=== PATIENT | female | born 2000 | race Caucasian/White ===

== ENCOUNTER 2022-04-04 12:05 | Emergency (ER) | payer BC, MEDICAID, SELFPAY ==
--- NOTE | 2022-04-04 12:11 | ED.URI ---
HPI - URI/Sore Throat General Chief Complaint: Upper Respiratory Infection Stated Complaint: sorethroat Time Seen by Provider: 04/04/22 12:33 Source: patient and RN notes reviewed Mode of arrival: ambulatory Limitations: no limitations History of Present Illness HPI Narrative: 21-year-old female presents concern for sore throat. Reports symptoms started yesterday. She also reports a stomachache. She reports history of seasonal allergies that she has some rhinorrhea and nasal congestion. She reports she has been taking Tylenol. 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 EYES: Denies visual changes, redness, or discharge. ENT: Reports rhinorrhea, congestion, and sore throat. Denies sinus pain, otalgia CARDIOVASCULAR: Denies chest pain, palpitations, or edema. RESPIRATORY: Denies cough. Denies dyspnea. GASTROINTESTINAL: Denies abdominal pain, vomiting, diarrhea. Reports nausea SKIN: Denies rash or itching. MUSCULOSKELETAL: Denies myalgia. NEUROLOGIC: Denies headache. All systems reviewed & are unremarkable except as noted in HPI and below PMFSH Comments At time of signature, agree with nursing past medical, surgical, social and family history. There is no relevant family history pertinent to the presenting complaint Exam Narrative: GENERAL: Well-appearing, well-nourished, and in no acute distress. HEAD: Normocephalic EYES: PERRLA, conjunctivae clear ENT: Nares clear, turbinates edematous and erythematous, clear discharge. Mucous membranes moist. TM pearly solis with dull light reflex bilaterally; no tragal tenderness. Oropharynx not erythematous without lesions. Tonsils not enlarged and without exudate, no drooling, no hoarseness, no trismus, uvula midline. NECK: Supple. No lymphadenopathy CHEST: Clear to auscultation, breath sounds equal. No wheezing, rhonchi, rales, or stridor. No respiratory distress, speaks in full sentences. HEART: Regular rate and rhythm. No murmur heard. SKIN: Warm, dry, no rash. NEURO: Alert and oriented x3. PSYCH: Normal mood and affect Course Course Emergency Course: Patient is aware of diagnosis, understands and agrees to treatment plan. Anticipatory guidance given. Patient agrees to follow-up as directed and is aware of reasons to seek care at the emergency department. Portions of this record may have been created with voice recognition software Level of Care: Express Care Visit Vital Signs Vital signs: Reviewed. MDM - URI/Sore Throat MDM Narrative Medical decision making narrative: Differential diagnosis considered: Sierra virus, strep pharyngitis, allergic rhinitis, upper respiratory tract infection, sinusitis, rhinosinusitis, nasopharyngitis. viral pharyngitis, otitis media, otitis externa, pneumonia, bronchitis, viral cough syndrome, viral syndrome, and influenza. Exam findings show no acute concerns or changes; patient is non-toxic appearing and is in no distress. Patient is appropriate for outpatient treatment and follow-up. Lab Data Attestation: I reviewed the patient's lab results. Critical Care Time Critical Care Time Critical Care Time: No Discharge Plan Discharge Clinical Impression: Pharyngitis Patient Disposition: Home, Self-Care Condition: Stable Instructions: Pharyngitis (ED) Additional Instructions: Your rapid strep swab was negative today at [facility]. A throat culture will be sent to the laboratory for further testing. If the test is positive, you will receive a phone call within 48 hours and an appropriate antibiotic will be initiated at that time. Your symptoms are likely due to a viral illness, which is not treated with antibiotics. Viral symptoms can be present for up to a few weeks. -Al
[2022-04-04 12:27] VITALS: BP 110/69; PULSE 86; RESP 18; TEMP 36.7; O2SAT 100
== END 2022-04-04 12:42 | disposition home or self-care (01) ==
PROVIDERS: Emergency Provider Nurse Practitioner
DX: J02.9 Acute pharyngitis, unspecified (principal); Z86.16 Personal history of COVID-19
CPT/HCPCS: 87081; 87880; 99213; G0463

== ENCOUNTER 2023-08-01 08:29 | Emergency (ER) | payer OTHER, SELFPAY ==
--- NOTE | 2023-08-01 08:36 | ED.EAR ---
HPI - Ear Problem General Chief complaint: Ear Stated complaint: Rt Ear Irritation Time Seen by Provider: 08/01/23 08:36 Source: patient, RN notes reviewed and old records reviewed Mode of arrival: ambulatory Limitations: no limitations History of Present Illness HPI Narrative: 22 year old female presents to [facility] care with complaints of right ear pain since Saturday (3 days)with some sinus congestion and drainage. Patient reports some headache discomfort, denies any sore throat or any known fevers. Patient reports that she has some history of seasonal allergies and also sinus problems and does take Zyrtec as needed.Patient reports that she has been taking Ibuprofen for her discomfort. MD Complaint: ear pain Location: right ear Duration: constant Severity: moderate Discharge from ear: Reports no Treatment prior to arrival: oral analgesic (Ibuprofen) Related Data Allergies Allergy/AdvReac Type Severity Reaction Status Date / Time No Known Allergies Allergy Verified 08/01/23 08:44 Review of Systems Review of Systems: CONSTITUTIONAL: Denies malaise, chills, sweats, or fever. EYES: Denies visual changes, redness, or discharge. ENT: Reports rhinorrhea, congestion, sinus pain,right otalgia and no sore throat. CARDIOVASCULAR: Denies chest pain, palpitations, or edema. RESPIRATORY: Reports no cough.? Denies dyspnea. GASTROINTESTINAL: Denies abdominal pain, nausea, vomiting, diarrhea SKIN: Denies rash or itching. MUSCULOSKELETAL: Denies myalgia. NEUROLOGIC: Reports headache. All systems reviewed & are unremarkable except as noted in HPI and below PMFSH Past Medical History Medical History (Updated 08/01/23 @ 11:28 by Deya Hercules NP) History of sinus problem Polydactyly, toes surgery X3 Seasonal allergies Surgical History Surgical History (Updated 08/01/23 @ 11:27 by Deya Hercules NP) History of mandibular surgery x2 Social History Social History (Updated 08/01/23 @ 08:54 by Deya Hercules NP) Smoking status: Never smoker Alcohol intake: current Alcohol use details: rare social Substance use type: does not use Living arrangements: with family Gender identity (if verbalized by the patient): Female Comments At time of signature, agree with nursing past medical, surgical, social and family history. There is no relevant family history pertinent to the presenting complaint Exam Narrative: GENERAL: Well-appearing, well-nourished, and in no acute distress. HEAD: Normocephalic EYES: PERRLA, conjunctivae clear ENT: Nares clear, turbinates edematous and erythematous, clear discharge. Mucous membranes moist Right TM red,Left TM pearly solis with dull light reflex; no tragal tenderness. Oropharynx erythematous without lesions. Tonsils not enlarged and without exudate, no drooling, no hoarseness, no trismus, uvula midline.post nasal drainage. NECK: Supple. No lymphadenopathy CHEST: Clear to auscultation, breath sounds equal. No wheezing, rhonchi, rales, or stridor. No respiratory distress, speaks in full sentences. no cough noted,SAO2 100% on room air HEART: Regular rate and rhythm. No murmur heard. SKIN: Warm, dry, no rash. NEURO: Alert and oriented x3. PSYCH: Normal mood and affect Course Course Emergency Course: Patient is aware of diagnosis, understands and agrees to treatment plan.? Anticipatory guidance given.? Patient agrees to follow-up as directed and is aware of reasons to seek care at the emergency department. Portions of this record may have been created with voice recognition software Level of Care: Express Care Visit Vital Signs Vital signs: Vital Signs Oxygen Delivery Room Air 08/01/23 08:38 Temperature 36.6 C 08/01/23 08:40 Pulse Rate 79 08/01/23 08:40 Respiratory Rate 18 08/01/23 08:40 Blood Pressure 107/70 08/01/23 08:40 Pulse Oximetry 100 08/01/23 08:40 Oxygen Delivery Room Air 08/01/23 08:40
[2023-08-01 08:40] VITALS: BP 107/70; PULSE 79; RESP 18; TEMP 36.6; O2SAT 100
== END 2023-08-01 09:00 | disposition home or self-care (01) ==
PROVIDERS: Emergency Provider Registered Nurse; PCP Family Medicine
DX: H65.01 Acute serous otitis media, right ear (principal)
CPT/HCPCS: 99213; G0463

== ENCOUNTER 2024-08-04 08:20 | Emergency (ER) | payer OTHER, SELFPAY ==
[2024-08-04 09:21] VITALS: BP 132/84; PULSE 102; RESP 16; TEMP 36.6; O2SAT 100
--- NOTE | 2024-08-04 09:54 | ED.EYEPROB ---
HPI - Eye Problem General Chief complaint: Eye Problems Stated complaint: RT Eye redness Time Seen by Provider: 08/04/24 09:54 Source: patient, RN notes reviewed and old records reviewed Mode of arrival: ambulatory Limitations: no limitations History of Present Illness HPI Narrative: 23-year-old female presents to the [facility] with complaints of right redness. Patient reports that on Saturday she woke up in her eye was crusted shut. Same with this morning. No treatment prior to arrival. Reports that is being irritated itchy. Denies any pain. Related Data Home Medications Medication Instructions Recorded Confirmed nortriptyline 10 mg capsule 10 mg DIRECTED 08/04/24 08/04/24 Allergies Allergy/AdvReac Type Severity Reaction Status Date / Time No Known Allergies Allergy Verified 08/01/23 08:44 Review of Systems Review of Systems: All systems reviewed & are unremarkable except as noted in HPI and below Constitutional: Constitutional: Reports no additional constitutional complaints Eyes: Eyes: Reports as per HPI ENT: Reports system reviewed and no additional complaints, except as documented Cardiovascular: Cardiovascular: Reports no additional cardiovascular complaints, Denies chest pain and Denies dyspnea Respiratory: Respiratory: Reports no additional respiratory complaints, Denies chest congestion, Denies cough and Denies dyspnea Gastrointestinal: Gastrointestinal: Reports no additional gastrointestinal complaints, Denies abdominal pain, Denies nausea and Denies vomiting Musculoskeletal: Musculoskeletal: Reports no additional musculoskeletal complaints Integumentary/Breasts: Skin/Breast: Reports system reviewed and no additional complaints, except as docu PMFSH Past Medical History Medical History History of sinus problem Polydactyly, toes surgery X3 Seasonal allergies Surgical History Surgical History History of mandibular surgery x2 Social History Social History Smoking status: Never smoker Alcohol intake: current Alcohol use details: rare social Substance use type: does not use Living arrangements: with family Gender identity (if verbalized by the patient): Female Comments At the time of my signature, I reviewed and agree with the nursing past medical, surgical, social, and family history. There is no relevant family history pertinent to the patient complaint. Exam Const: General: cooperative, healthy appearing, comfortable, no acute distress, well developed, alert and well nourished Nutritional Appearance: well nourished Orientation/consciousness: patient oriented x3 Limitations: no limitations HENMT: Head: normal to inspection Ears: hearing grossly normal bilaterally and external ears normal Face/Nose/Sinus: Normal external nose present, normal facial exam and face symmetric Face and sinus: normal facial exam and face symmetric Eyes: General: appearance normal, both eyes and all related structures Alignment and Position: alignment normal Periorbital: periorbital findings normal Conjunctivae: conjunctival abnormality right conjunctival injection localized (Right lower lid) Neck: Neck: normal visual inspection, full ROM, no lymphadenopathy and no meningeal signs Chest: Chest palpation & inspection: normal inspection of the chest Resp: Effort & Inspection: normal respiratory effort and able to speak in complete sentences Cardio: Rate: regular rate Skin: General skin exam: normal color and no rashes or lesions noted Lesions: no lesions Rashes: no rashes Wounds: no wounds Neuro: General: patient oriented x3, gait normal, tone normal, moves all extremities and no meningeal signs Cognition (Neuro): normal cognition Speech: normal speech Gait exam (Neuro): Normal gait present Extrem: General: normal to inspection, full ROM, capillary refill normal and normal gait Psych: Appearance: grossly normal and well kempt Mental Status: mental status grossly normal Speech and movement: Normal speech and movement present and Clear speech present Affect: normal affect Attitude: cooperative Course Course Level of Care: Express Care Visit Vital Signs Vital signs: Vital Signs Temperature 97.9 F 08/04/24 09:21 Pulse Rate 102 H 08/04/24 09:21 Respiratory Rate 16 08/04/24 09:21 Blood Pressure 132/84 08/04/24 09:21 Pulse Oximetry 100 08/04/24 09:21 Oxygen Delivery Room Air 08/04/24 09:21 Temperature 97.9 F 08/04/24 09:21 Pulse Rate 102 H 08/04/24 09:21 Respiratory Rate 16 08/04/24 09:21 Blood Pressure 132/84 08/04/24 09:21 Pulse Oximetry 100 08/04/24 09:21 Oxygen Delivery Room Air 08/04/24 09:21 Reviewed MDM - Eye Problem MDM Narrative Medical decision making narrative: Patient sitting exam. Vitals stable. Patient in no acute distress Patient presents with eye redness itching, irritation and stating that it was matted shut Saturday and today. Exam consistent with conjunctivitis, patient does wear contact but denies any injury. Denies any pain Patient appropriate for outpatient treatment follow-up Discharge instructions reviewed with patient, as well as provided in writing per nursing staff. The instructions also include specific and strict return/GO TO THE ER as well as f/u information. All questions have been answered, and the patient deny any further questions with discharge and discharge plan. Some parts of this dictation were generated by voice recognition software and may contain typographical and/or grammatical inaccuracies. Differential Diagnosis Differential diagnosis: Likely corneal abrasion and conjunctivitis Critical Care Time Critical Care Time Critical Care Time: No Discharge Plan Discharge Clinical Impression: Acute conjunctivitis of right eye Qualifiers: Acute conjunctivitis type: unspecified Qualified Code(s): H10.31 - Unspecified acute conjunctivitis, right eye Patient Disposition: Home, Self-Care Condition: Stable Instructions: Conjunctivitis (ED) Additional Instructions: Apply a cool, damp compress to your affected eye. Be sure to use a clean cloth each time to avoid spreading the infection. Gently clean your eyes with wet cotton balls or pads to remove crusty buildup or irritating discharge. Stop wearing contact lenses until the condition clears up. Maintain good hygiene and only touch your eyes with freshly washed hands. You should follow-up with an eye doctor within the next 72 hours [facility]: [place]- [phone] [facility] [phone] [facility] [phone] [place]: [facility] [phone] or [phone] [facility] [phone] [place] [phone] [facility] [phone] [facility]- [phone] Patient Language: Amharic Prescriptions: New ciprofloxacin HCl 0.3 % drops See Rx Instructions EACH EYE .COMPLEX Qty: 2.5 0RF Rx Instructions: put 1-2 drps in affected eye(s) every 2hr up to 8 times/day x2days; then 4 times/day x5days No Action nortriptyline 10 mg capsule 10 mg DIRECTED cetirizine-pseudoephedrine [Zyrtec-D] 5-120 mg tablet extended release 12 hr 1 tablet PO Q12H PRN (Reason: nasal congestion) Qty: 12 0RF Follow-up/Referrals: Clem,Marivel Garcia MD [Primary Care Provider] - 2 Weeks ([facility] ) Stand Alone Forms: Work/School Release IP Time of Disposition: 10:05
== END 2024-08-04 10:11 | disposition home or self-care (01) ==
PROVIDERS: Emergency Provider Nurse Practitioner; PCP Internal Medicine
DX: H10.31 Unspecified acute conjunctivitis, right eye (principal)
CPT/HCPCS: 99213; G0463

== ENCOUNTER 2024-10-21 15:32 | Emergency (ER) | payer OTHER, SELFPAY ==
--- NOTE | 2024-10-21 15:37 | ED.HA ---
HPI - Headache General Chief Complaint: Upper Respiratory Infection Stated Complaint: Migraine,Nauseous Time Seen by Provider: 10/21/24 16:07 Source: patient, RN notes reviewed and old records reviewed Mode of arrival: ambulatory Limitations: no limitations History of Present Illness HPI Narrative: Patient with history of migraines, taking nortriptyline, presents with complaints of headache. She reports that she has had intermittent headache for 3 days. She has been taking ibuprofen with no relief. She is attempting to stay well hydrated. She reports that she is nauseated, but has not vomited. She denies any injury or trauma. She did recently begin taking letrozole. Last Menstrual period 10/17/2024 Related Data Home Medications ?Medication ?Instructions ?Recorded ?Confirmed ?Last Taken ?Type nortriptyline 10 mg capsule 10 mg DIRECTED 08/04/24 08/04/24 Unknown History Allergies Allergy/AdvReac Type Severity Reaction Status Date / Time No Known Allergies Allergy Verified 10/21/24 15:37 Review of Systems Review of Systems: All systems reviewed & are unremarkable except as noted in HPI and below Constitutional: Constitutional: Reports no additional constitutional complaints and Reports headache(s) ENT: Reports system reviewed and no additional complaints, except as documented Cardiovascular: Cardiovascular: Reports no additional cardiovascular complaints Respiratory: Respiratory: Reports no additional respiratory complaints Gastrointestinal: Gastrointestinal: Reports no additional gastrointestinal complaints and Reports nausea PMFSH Past Medical History Medical History Polydactyly, toes surgery X3 History of sinus problem Seasonal allergies Surgical History Surgical History History of mandibular surgery x2 Social History Social History Smoking status: Never smoker Alcohol intake: current Alcohol use details: rare social Substance use type: does not use Living arrangements: with family Gender identity (if verbalized by the patient): Female Comments At the time of my signature, I reviewed and agree with the nursing past medical, surgical, social, and family history. There is no relevant family history pertinent to the patient complaint. Exam Const: General: cooperative, no acute distress, alert and awake Orientation/consciousness: oriented to person, oriented to place and oriented to time HENMT: Head: normal to inspection Ears: TM's normal bilaterally Mouth: Yes moist mucous membranes Eyes: General: appearance normal, both eyes and all related structures Alignment and Position: alignment normal Periorbital: periorbital findings normal Conjunctivae: conjunctivae normal Sclera: sclerae normal Pupils: Equal, round and reactive pupils present EOM: EOMs intact bilaterally Resp: Effort & Inspection: normal respiratory effort and able to speak in complete sentences Auscultation: clear to auscultation bilaterally, no crackles, no rales, no rhonchi and no wheezes Cardio: Palpation: normal PMI Rate: regular rate Rhythm: regular rhythm Heart sounds: S1 normal heart sound present and S2 normal heart sound present Neuro: General: oriented to person, oriented to place and oriented to time Cranial nerves: Yes CN's II-XII intact bilaterally Psych: Appearance: grossly normal Thought process: Normal thought process present Insight: Good insight present (Psych) Judgement: Good judgement present (Psych) Course Course Level of Care: Express Care Visit Vital Signs Vital signs: Reviewed MDM - Headache MDM Narrative Medical decision making narrative: patient history of migraines, lots factors that could be causing her headache today. COVID and flu ruled out, test negative today. Patient is taking letrozole, recently began menstrual period , and has additional stressors such as school. She is feeling better after Toradol and Zofran. Nontoxic-appearing stable for discharge home Discharge instructions reviewed with patient, as well as provided in writing per nursing staff. The instructions also include specific and strict return/GO TO THE ER as well as f/u information. All questions have been answered, and the patient deny any further questions with discharge and discharge plan. Some parts of this dictation were generated by voice recognition software and may contain typographical and/or grammatical inaccuracies. Differential Diagnosis Differential diagnosis: Likely migraine, tension headache and headache Medical Records Attestation: I reviewed the patient's medical records. Lab Data Attestation: I reviewed the patient's lab results. Discharge Plan Discharge Clinical Impression: Headache Qualifiers: Headache type: unspecified Headache chronicity pattern: unspecified pattern Intractability: not intractable Qualified Code(s): R51.9 - Headache, unspecified Patient Disposition: Home, Self-Care Condition: Stable Instructions: Antibiotic Form, Acute Headache (ED) Patient Language: Palestinian Prescriptions: New ondansetron 4 mg tablet,disintegrating 4 mg PO Q6H PRN (Reason: nausea and vomiting) Qty: 20 0RF ketorolac 10 mg tablet 10 mg PO Q8H PRN (Reason: pain) Qty: 10 0RF Rx Instructions: maximum total duration of 5 days from all oral, intranasal, or parenteral formulations No Action nortriptyline 10 mg capsule 10 mg DIRECTED cetirizine-pseudoephedrine [Zyrtec-D] 5-120 mg tablet extended release 12 hr 1 tablet PO Q12H PRN (Reason: nasal congestion) Qty: 12 0RF Follow-up/Referrals: Clem,Marivel Garcia MD [Primary Care Provider] - 1 Week Time of Disposition: 16:35
[2024-10-21 15:40] VITALS: BP 126/83; PULSE 90; RESP 16; TEMP 36.6; O2SAT 100
[2024-10-21 16:03] LABS: EDCOVIDSCREEN Negative (Negative); EDINFLUASCREEN Negative (Negative); EDINFLUBSCREEN Negative (Negative)
[2024-10-21] MEDS: KETOROLAC (*BKC) 60 MG/2 ML VIAL IM (16:13)
[2024-10-21] MEDS: ONDANSETRON HCL ODT 4 MG TABLET PO (16:13)
--- OUTSIDE RECORDS SUMMARY | 2024-10-21 16:15 | XMS_ITS | Referral Summary ---
Author Organization [facility] Address [address] [place] [address] Care Team Providers Care Stuffed Casing Tier Name Role Phone Meche Veras DO Primary Care Provider [phone] Source Comments [facility],non-owned Affiliates and Associated Physician Practices is amultiple site organization consisting of ambulatory clinics and hospital sitesin [place], [place], [place] and [place]. This disclosure is being madepursuant to the Care Everywhere program and may not contain all information available regarding this patient. Last updated 18.[facility] Allergies No known active allergies Medications Be aware that medications may not be up to date on this document. Always verify current medications with the patient. 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; molluscum on R elbow Constellation of findings suspicious for genetic link Scoliosis 01/22/2012 Overview (01/28/2012): 01/22/12 order xrays 01/23/12 scoliosis - 10 degrees, will recheck in one year Hallux varus, acquired 08/07/2010 Overview (06/23/2015): Well child visit 02/14/2010 Overview (06/05/2019): 10 y/o 01/17/11 11 yo 01/22/12 13 yo 03/18/14 14 yo 12/23/14 15 yo 12/27/15 16 yo 01/01/17 17 yo 01/14/18 18 yr 06/05/19 Heart murmur 02/14/2010 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 (AF LURIA, FLUZONE TRIVALENT; 6MO+) (IIV3) 08/03/2013 DTaP VACCINE IM (6wk-6yrs) 12/24/2006,,06/29/2002,04/28,02/27/2002 HEP A PEDS 2 DOSE 12/23/2006,2005 HEP B VACCINE, PED/ADOL 04/05/2008,04/28/2002, HIB BOOSTER 04/05/2008,04/28/2002,02/27/2002 Human Papilloma Virus Nineva lent Vaccine 01/14/2018 Human Papilloma Virus Jess valent Vaccine 12/27/2015 INFLUENZA VACCINE, QUADR. (F LUZONE; FLULAVAL; FLUARIX; AFLURIA QUADRIVALENT; 6MO+), 0.5 ML (IIV4) 07/13/2015 MENINGOCOCCAL CONJUGATE (MCV4P) 01/14/2018,03/18 MMR 12/23/2006,02/03/2003 PNEUMOCOCCAL CONJ, PEDS 07/20/2003,04/05,04/28/2002,02/27 POLIO IPV 2005, 3,04/28/2002,02/27 PPD 2005 TDAP (7yrs+) 03/18/2013 VARICELLA 01/23/2008,02/03/2003 Social History Tobacco Use Types Packs/Day Years Used Date Smoking Tobacco: Never Smokeless Tobacco: Never Alcohol Use Standard Drinks/Week Comments No 0 (1 standard drink = 0.6 oz pur e alcohol) Sex and Gender Information Value Date Recorded Sex Assigned at Not on file Gender Identity Not on file Sexual Orientation Not on file Last Filed Vital Signs Vital Sign Reading Time Taken Comments Blood Pressure 102/64 07/13/2020 9:54 AM CDT Pulse 96 08/02/2016 2:54 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 Author Use safety retraint in car Lifestyle On track( 020 9:55 AM CDT) No Reina Love Administered Medications Care Teams Stuffed Casing Tier Relationship Specialty Start Date End Date Meche Veras DO [address] [place] [address] PCP - General Pediatrics 07/20/20
--- OUTSIDE RECORDS SUMMARY | 2024-10-21 16:15 | XMS_ITS | Clinical Summary ---
Author Organization [facility] 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 This disclosure is being madepursuant to the Care Everywhere program and may not contain all information available regarding this patient. Last updated 18.[facility] 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 Temperature 36.6 ??C (97.9 ??F) 07/15/2020 8:22 AM CD T Respiratory Rate 18 04/07/2015 10:23 AM CDT Oxygen Saturation 100% 08/02/2016 2:54 PM SALES ADVISORY MANAGER Inhaled Oxygen Concentration - - Weight 43.3 kg (95 lb 6.4 oz) 07/13/2020 9:54 AM CDT Height 160 cm (5' 3 ) 07/13/2020 9:54 AM CDT Body Mass Index 16.9 07/13/2020 9:54 AM CDT Plan of Treatment Health Maintenance Due Date Last Done Comments PAP SMEAR 2001 HIV SCREENING 2016 CHLAMYDIA/GONORRHEA SCREENING 2017 MENINGOCOCCAL (Group B) VACCINE (1 of 2 - Standard) 2017 HEPATITIS C SCREENING 12/17/2019 DTAP/TDAP/TD VACCINES (7 - Td or Tdap) 03/18/2023 03/18/2013, 12/24/2006, 04/05/2003, Additional history exists COVID-19 VACCINE ( - 2023- season) 2024 10/10/2021 INFLUENZA VACCINE (#1) 2024 07/13/2015, 2012 DEPRESSION SCREENING 09/23/2024 ZOSTER VACCINE (1 of 2) 12/22/2051 PNEUMOCOCCAL VACCINE Completed 07/20/2003, 04/05/2003, 04/28/2002, Additional history exists HEPATITIS B VACCINE Completed 04/05/2008, 04/28/2002, 02/27/2002 HIB VACCINE Aged Out 04/05/2008, 02/2002, 02/27/2002 No longer eligible based on patient's age to complete this topic HPV VACCINE Completed 01/14/2018, 12/27/2015 MENINGOCOCCAL VACCINE Completed 01/14/2018, 013 Goals Goal Patient Goal Type Associated Problems Recent Progress Patient-Stated? Author Use safety retraint in car Lifestyle On track( 020 9:55 AM CDT) Reina Mallory Care Teams [employer] Assistant Football Coach Relationship Specialty Start Date End Date Meche Veras DO [address] [place] [address] PCP - General Pediatrics 07/20/20
--- OUTSIDE RECORDS SUMMARY | 2024-10-21 16:15 | XMS_ITS | Referral Summary ---
Author Organization [place] [id number] Address [address] [place] [address] Care Team Providers Care Accounting Systems Analyst Name Role Phone Marivel Nj MD Primary Care Provider Encounters Date Type Department Care Team Description 10/08/2024 2:00 PM DESKTOP MANAGER [facility] Medical Office Building [address] [place] [address] [id number] Patient desires 10/01/2024 3:30 PM DESKTOP MANAGER Telemedicine [facility] Obstetrical Gynecology [address] [place] [phone] Luciana Stauffer MD Patient desires (Primary Dx); Anovulation 09/30/2024 4:15 PM DESKTOP MANAGER Clinical Support [facility] Obstetrical Gynecology [address] [place] [address] [address] [place] [address] Patient desires (Primary Dx) 09/17/2024 Telephone [facility] Primary Care [address] [place] [address] [address] [place] [phone] Marivel Nj MD Med Refill (Nortriptyline 10MG caps) 09/10/2024 Orders Only [facility] Obstetrical Gynecology [address] [place] [address] [address] [place] [phone] Luciana Stauffer MD Patient desires (Primary Dx) 09/01/2024 8:00 AM DESKTOP MANAGER Lab [facility] Office Building 1 Lab [address] [place] [address] Well woman exam; Patient desires 08/18/2024 2:30 PM DESKTOP MANAGER Office Visit [facility] Obstetrical Gynecology [address] [facility] [address] [place] [phone] Luciana Stauffer MD Patient desires (Primary Dx) from Last 3 Months Allergies No known active allergies Medications cetirizine (ZyrTEC) 10 mg tablet Take 1 tablet (10 mg total) by mouth daily Active letrozole (FEMARA) 2.5 mg tablet Take 1 tablet (2.5 mg total) by mouth daily Take on cycle days 3-7 5 tablet 1 09/10/2024 Active nortriptyline (PAMELOR) 10 mg capsule 2 pills by mouth at bedtime. 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 Scoliosis 01/22/2012 Overview (03/30/2024): 01/22/12 order xrays 01/23/12 scoliosis - 10 degrees, will recheck in one year Hallux varus, acquired 08/07/2010 Overview (03/30/2024): Heart murmur 02/14/2010 Resolved Problems Problem Noted Date Diagnosed Date Resolved Date Polydactyly of toes 02/14/2010 03/30/20 24 Immunizations Name Administration Dates Next Due DTaP 12/24/2006, 3,06/29/2002,04/28,02/27/2002 DTaP, Unspecified 12/24/2006, 3,06/29/2002,04/28,02/27/2002 HPV, Quadrivalent 12/27/2015 HPV9 01/14/2018 Hep A, Ped Unspecified 12/23/2006,2005 Hep A, Pediatric 12/23/2006,2005 Hep B / HiB 04/05/2003,04/28/2002,02/27/2002 Hep B, Adolescent or Pediatric 04/05/2008,2001,02/27/2002 HiB 04/05/2008,04/28/2002,02/27/2002 Hib (PRP-D) 04/05/2008,04/28/2002,02/27/2002 IPV 2005, 3,04/28/2002,02/27 Influenza, Quadrivalent, Spl it, Preservative Free, Intramuscular 07/13/2015 Influenza, Trivalent, IM (MDV) 08/03/2013 Influenza, Unspecified 12/17/2023(Deferr ed: Patient Refused),07/13/2015,08/03/2013 MMR 12/23/2006,02/03/2003 Meningococcal MCV4P (Menactra) 01/14/2018,2012 PPD TEST 12/17/2023,2005 Pneumococcal Conjugate 7-Valent 07/20/20,04/05/2003,04/28/2002,02/27 Pneumococcal Conjugate, Unspecified 06/24,04/05/2003,04/28/2002,02/27 Tdap 12/19/2023,10/18/2022,03/18/2013 Varicella 01/23/2008,02/03/2003 Social History Tobacco Use Types Packs/Day Years Used Date Smoking Tobacco: Every Day Cigarettes Vaping Smokeless Tobacco: Never Tobacco Cessation:Ready to Q uit: Not Asked; Counseling Given: Not Answered AUDIT-C Answer Date Recorded Q1: How often do you have a drink containing alc ohol? Monthly or less 12/17/2023 Q2: How many drinks containi ng alcohol do you have on a typical day when you are drinking? 1 or 2 12/17/2023 Q3: How often do you have si x or more drinks on one occasion? Never 12/17/2023 PHQ-2 Answer Date Recorded PHQ-2 Total Score (If total score is 3 or more points, staff should administer the PHQ-9) 0 02/11/2024 Comments No Sex and Gender Information Value Date Recorded Sex Assigned at Not on file Legal Sex Female 7:14 PM DESKTOP MANAGER Gender Identity Not on file Sexual Orientation Not on file Last Filed Vital Signs Vital Sign Reading Time Taken Comments Blood Pressure 122/80 08/18/2024 2:31 PM DESKTOP MANAGER Pulse 98 02/11/2024 2:50 PM CDT Temperature 37.1 ??C (98.7 ??F) 02/11/2024 2:50 PM CD T Respiratory Rate 15 02/11/2024 2:50 PM CDT Oxygen Saturation 99% 02/11/2024 2:50 PM CDT Inhaled Oxygen Concentration - - Weight 49 kg (108 lb) 08/18/2024 2:31 PM DESKTOP MANAGER Height 157.5 cm (5' 2.01 ) 08/18/2024 2:31 PM CS T Body Mass Index 19.75 08/18/2024 2:31 PM DESKTOP MANAGER Plan of Treatment Not on file Procedures Procedure Name Priority Date/Time Associated Diagnosis Comments PROGESTERONE Routine 10/08/2024 2:05 PM DESKTOP MANAGER Patient desires US TRANSVAGINAL Schedule Routine, Read Routine (OP Routine) 09/30/2024 5:11 PM DESKTOP MANAGER Patient desires ANTIBODY SCREEN Routine 09/01/2024 8:13 AM DESKTOP MANAGER Well woman exam ABO/RH Routine 09/01/2024 8:13 AM DESKTOP MANAGER Well woman exam TYPE AND SCREEN Routine 09/01/2024 8:13 AM DESKTOP MANAGER Well woman exam TOTAL TESTOSTERONE Routine 09/01/2024 8: 13 AM DESKTOP MANAGER Patient desires DHEA-SULFATE Routine 09/01/2024 8:13 AM DESKTOP MANAGER Patient desires ANTIMULLERIAN HORMONE (AMH) Routine 09/01/2024 8:13 AM DESKTOP MANAGER Patient desires PROLACTIN Routine 09/01/2024 8:13 AM DESKTOP MANAGER Patient desires FOLLICLE STIMULATING HORMONE Routine 09/01/2024 8:13 AM DESKTOP MANAGER Patient desires ESTRADIOL Routine 09/01/2024 8:13 AM DESKTOP MANAGER Patient desires HEMOGLOBIN A1C Routine 09/01/2024 8:13 AM DESKTOP MANAGER Well woman exam PROGESTERONE Routine 09/01/2024 8:13 AM DESKTOP MANAGER Patient desires THYROID FUNCTION CASCADE Routine 09/01/2024 8:13 AM DESKTOP MANAGER Well woman exam RUBELLA IGG Routine 09/01/2024 8:13 AM DESKTOP MANAGER Patient desires VARICELLA ZOSTER ANTIBODY, IGG Routine 09/01/2024 8:13 AM DESKTOP MANAGER Patient desires N. GONORRHOEAE/C. TRACHOMATIS AMPLIFICATION Routine 03/30/2024 3:00 PM CDT Well woman exam PAP WITH REFLEX TO HIGH RISK HPV Routine 03/30/2024 3:00 PM CDT Well woman exam from Last 3 Months or Most Recently Relevant to Health Maintenance Results * (ABNORMAL) Progesterone (10/08/2024 2:05 PM DESKTOP MANAGER) Progesterone 23.2(H) 0.0 - 0.2 ng/mL Comment: Interpretive Data Males: ?<0.15 ng/mL Females: ??Follicular ?<0.20 ng/mL ??Ovulation ? <4.1 ng/mL ??Luteal ?4.1 - ??14.5 ng/mL ??1st Trimester ?? 11.0 - ??44.0 ng/mL ??2nd Trimester ?? 25.0 - ??83.0 ng/mL ??3rd Trimester ?? 59.0 - 214.0 ng/mL ??Postmenopausal ??<0.13 ng/mL Current interpretive data was last revised 2021. Blood 10/08/2024 2:05 PM DESKTOP MANAGER 10/08/2024 6:57 PM DESKTOP MANAGER Luciana Stauffer MD LAB BLOOD ORDERABLES Final R esult [facility] [address] [facility] [place] [address] * US Transvaginal (09/30/2024 5:11 PM DESKTOP MANAGER) Anatomical Region Laterality Modality Pelvis N/A Ultrasound Narrative 10/01/2024 2:41 PM DESKTOP MANAGER Last Menstrual Period: 08/2024 Indication: desires History of Pelvic Surgery: no Uterus size in cm: 7.47 x 4.15 x 3.30 Endometrium: 11.89 mm Right Ovary size in cm: 3.62 x 3.38 x 2.95 ?Cyst present: yes ?Size of cyst in cm: 2.72 x 2.46 x 1.84 Left Ovary size in cm: 2.87 x 2.27 x 2.10 ?Cyst present: no Pot Fisher impression: Endo = 11.89 mm. Right ovary presents with an anechoic area measuring 2.72 x 2.46 x 1.84 cm. Left ovary appears WNL. Physician Interpretation Normal sized uterus that is anteverted and anteflexed. Endometrium is slightly thickened and in some images appears heterogenous near the fundus, but no blood flow to this area of endometrium. Consider SIS to differentiate possible endometrial polyp. Normal appearing left ovary. Right ovary is slightly enlarged with a 2.7 x 2.5 cm simple cyst. Luciana Stauffer MD Luciana Stauffer MD IMG US PROCEDURES Edited Res ult - Final * Thyroid Function [place] (09/01/2024 8:13 AM DESKTOP MANAGER) TSH 2.30 0.30 - 4.20 mcIUnit/mL Comment:Testing performed by : [address] [address] Blood 09/01/2024 8:13 AM DESKTOP MANAGER 09/01/2024 10:01 AM DESKTOP MANAGER Luciana Stauffer MD LAB BLOOD ORDERABLES Edited Result - Final Performing Organization Address [facility] Co de Phone Number [facility] [address] [address] * Antimullerian hormone (AMH) (09/01/2024 8:13 AM DESKTOP MANAGER) AMH, ab 6.0 1.2 - 12 ng/mL [facility] Comment: ADDITIONAL INFORMATION The testing method is an electrochemiluminescence assay manufactured by [employer] and performed on the [place] system. Values obtained with different assay methods or kits may be different and cannot be used interchangeably. This test has been modified from the manufacturers instructions. Its performance characteristics were determined by [facility] in a manner consistent with CLIA requirements. This test has not been cleared or approved by the U.S. Food and Drug Administration. Test Performed by: [address] [address] Malt Loader: Lakshmi Snell Ph.D.; CLIA# [id number] Testing performed by: [address] [address] Blood 09/01/2024 8:13 AM DESKTOP MANAGER 09/01/2024 9:57 AM DESKTOP MANAGER Luciana Stauffer MD LAB BLOOD ORDERABLES Final R esult Performing Organization Address City/[facility]/ZIP Co de Phone Number TIFFANY [address] [place] [address] [facility] * ABO/Rh (09/01/2024 8:13 AM DESKTOP MANAGER) ABO/Rh O Positive Comment:Testing performed by : [facility], [address] [place] [address], [place]., [address] Blood 09/01/2024 8:13 AM DESKTOP MANAGER 09/01/2024 10:03 AM DESKTOP MANAGER Narrative [facility] - 09/01/2024 10:49 AM DESKTOP MANAGER Has the patient had Daratumumab or Isatuximab in the past 6 months?->Unknown Hx of or candidate for Bone Marrow/Stem Cell transplant?->No Luciana Stauffer MD LAB BLOOD BANK TEST ORDERABL ES Final Result Performing Organization Address [facility] Co de Phone Number [address] [employer] [address] * Prolactin (09/01/2024 8:13 AM DESKTOP MANAGER) [facility] Prolactin 17.9 4.8 - 23.3 ng/mL Comment:Testing performed by : [facility], [address] [place]., [address] Blood 09/01/2024 8:13 AM DESKTOP MANAGER 09/01/2024 2:23 PM DESKTOP MANAGER Luciana Stauffer MD LAB BLOOD ORDERABLES Final R esult Performing Organization Address [facility] Co de Phone Number [address] [place] [address] * (ABNORMAL) Progesterone (09/01/2024 8:13 AM DESKTOP MANAGER) Progesterone 1.2(H) 0.0 - 0.2 ng/mL Comment: Interpretive Data Males: ?<0.15 ng/mL Females: ??Follicular ?<0.20 ng/mL ??Ovulation ? <4.1 ng/mL ??Luteal ?4.1 - ??14.5 ng/mL ??1st Trimester ?? 11.0 - ??44.0 ng/mL ??2nd Trimester ?? 25.0 - ??83.0 ng/mL ??3rd Trimester ?? 59.0 - 214.0 ng/mL ??Postmenopausal ??<0.13 ng/mL Current interpretive data was last revised 2021. Blood 09/01/2024 8:13 AM DESKTOP MANAGER 09/01/2024 1:11 PM DESKTOP MANAGER Luciana Stauffer MD LAB BLOOD ORDERABLES Final R esult Performing Organization Address City/[facility] Co de Phone Number [address] Department [place] [address] * (ABNORMAL) DHEA-sulfate (09/01/2024 8:13 AM DESKTOP MANAGER) Pathologist [facility] DHEA-S 112.0(L) 148.0 - 407.0 mcg/dL Comment:Testing performed by : [facility], [address] [facility], [address] Blood 09/01/2024 8:1 3 AM DESKTOP MANAGER 09/01/2024 2:23 PM DESKTOP MANAGER Luciana Stauffer MD LAB BLOOD ORDERABLES Final R [facility] Performing Organization Address City/[facility] Co de Phone Number [address] [place] [employer] [place] [address] * Estradiol (09/01/2024 8:13 AM DESKTOP MANAGER) Estradiol 320.0 pg/mL Comment: Interpretive Data Males: 11 ? 43 pg/mL Females: Premenopausal: 31 ? 533 pg/mL Postmenopausal: < 50 pg/mL Patients treated with Fluvestrant (Faslodex) should be tested using an alternate assay such as LC-MS due to potential for cross-reactivity. Estradiol varies widely throughout the menstrual cycle. Current interpretive data was last revised 2024. Blood 09/01/2024 8:13 AM DESKTOP MANAGER 09/01/2024 1:11 PM DESKTOP MANAGER Narrative [facility] - 09/01/2024 1:48 PM DESKTOP MANAGER Is patient taking Fulvestrant?->No Luciana Stauffer MD LAB BLOOD ORDERABLES Final R esult Performing Organization Address City/[facility]/ZIP Co de Phone Number [id number] [place] [address] * Rubella IgG antibody Blood (09/01/2024 8:13 AM DESKTOP MANAGER) Rubella IgG Reactive Reactive Blood 09/01/2024 8:13 AM DESKTOP MANAGER 09/01/2024 1:12 PM DESKTOP MANAGER Luciana Stauffer MD LAB MICROBIOLOGY - GENERAL O RDERABLES Final Result Performing Organization Address [facility] de Phone Number [address] [address] * Antibody screen (09/01/2024 8:13 AM DESKTOP MANAGER) Jesus, indirect, Gel Interpretation Negative ABSC Comment:Testing performed by : [facility], [address] [place] [address]., [address] Blood 09/01/2024 8:1 3 AM DESKTOP MANAGER 09/01/2024 10:03 AM DESKTOP MANAGER Narrative [facility] - 09/01/2024 10:49 AM DESKTOP MANAGER Has the patient had Daratumumab or Isatuximab in the past 6 months?->Unknown Hx of or candidate for Bone Marrow/Stem Cell transplant?->No Luciana Stauffer MD LAB BLOOD BANK TEST ORDERABL ES Final Result Performing Organization Address [facility] Co de Phone Number [address] [place] [address] * Varicella Zoster IgG antibody Blood (09/01/2024 8:13 AM DESKTOP MANAGER) VZV IgG Reactive Reactive Comment: Reactive: Results suggest response to immunization or prior exposure to the virus. Testing performed by: [facility], [address] [place] [address] Blood 09/01/2024 8:13 AM DESKTOP MANAGER 09/01/2024 2:23 PM DESKTOP MANAGER Luciana Stauffer MD LAB MICROBIOLOGY - GENERAL O RDERABLES Final Result [address] [place] [address] * Total testosterone (09/01/2024 8:13 AM DESKTOP MANAGER) Testosterone 31.10 8.40 - 48.10 ng/dL Blood 09/01/2024 8:13 AM DESKTOP MANAGER 09/01/2024 1:11 PM DESKTOP MANAGER Luciana Stauffer MD LAB BLOOD ORDERABLES Final R esult Performing Organization Address [facility] Co de Phone Number [place] [id number] [facility] [place] [address] * Hemoglobin A1c (09/01/2024 8:13 AM DESKTOP MANAGER) Pathologist [facility] Hgb A1C 5.3 4.0 - 5.6 % Comment:Testing performed by : [address] [address] Estimated Average Glucose 105 mg/dL [facility] Comment: The ADA recommends reporting an estimated Average Glucose (eAG) with all Hemoglobin A1c results using the equation derived from a study of 507 normal and diabetic adults. ??Minority populations were underrepresented and children were not included. ?? (Diabetes Care 31:0921-8309, 2008). ??The eAG is not equivalent to a fasting glucose. Testing performed by: [address] [address] Blood 09/01/2024 8:13 AM DESKTOP MANAGER 09/01/2024 10:03 AM DESKTOP MANAGER Luciana Stauffer MD LAB BLOOD ORDERABLES Final R esult Performing Organization Address City/[facility]/ZIP Co de Phone Number [facility] [address] [facility] Department [place] [address] * Follicle stimulating hormone (09/01/2024 8:13 AM DESKTOP MANAGER) FSH 8.4 1.5 - 12.4 IUnits/L Blood 09/01/2024 8:13 AM DESKTOP MANAGER 09/01/2024 1:11 PM DESKTOP MANAGER Luciana Stauffer MD LAB BLOOD ORDERABLES Final R esult Performing Organization Address [facility] Co de Phone Number [facility] [address] [facility] [place] [address] * Pap with reflex to High Risk HPV and Genotyping (Cytology Component) (03/30/2024 3:00 PM CDT) Endocervical (Pap test) 03/30/2024 3:00 PM CDT 03/31/2024 3:36 PM CDT Narrative PATHOLOGY [facility] - 04/07/2024 3:46 PM CDT EPIC results best viewed via link to PDF [facility] [place] [address] Note to Patients: This report may contain a detailed description of human tissue sent by a health care provider to the laboratory for pathologic evaluation. The content of this report is essential for diagnosis and may provide important critical findings. This information may be unfamiliar to patients to review without a medical professional present. It is advised that the patient review this report in the presence of a health care provider who can answer questions and explain the details. CYTOPATHOLOGY REPORT FINAL Patient Name: ??ELYSE CAMERON Gender: ??F : ??2000 (Age: 23) Address: ??[address] ??[address] [facility] #: ??[id number] Service: ??DEFAULT Location: ?? Patient Type: ??MHE SPECIMEN Taken: ??03/30/2024 Received: ??03/31/2024 Accessioned: ??04/01/2024 Reported: ??04/07/2024 Physician(s): ??Analisa Stauffer M.D. ?? FINAL INTERPRETATION SOURCE OF SPECIMEN ?Liquid based Thin Prep pap with Reflex HPV: STATEMENT OF ADEQUACY ?- Satisfactory for evaluation ?- Endocervical cells/transformation zone sample present ? GENERAL CATEGORIZATION: ?- Negative for squamous intraepithelial lesion or malignancy ? lwl/04/07/2024 15:46 ALEIDA Woods MS(ASCP)BRYAN Report Electronically Reviewed and Signed Out By ALEIDA Woods MS(ASCP)BRYAN 04/07/2024 15:46:37 Cervicovaginal Cytology (Pap Test) Disclaimer: The Pap test is a screening test used to detect cervical cancer and its precursors; it is not a diagnostic procedure. False negative and false positive results do occur. Pap test results should be interpreted in the context of pertinent clinical information and biopsy results as indicated. [facility] Clinical Laboratory Improvement Amendments (CLIA) mandate that cytologic and histologic results be correlated for laboratory supplier quality specialist & improvement standards. ??FOR ALL HIGH-GRADE CASES we request submission of follow-up histological material and/or reports that have not been previously provided so that we may fulfill said required standards. ?? Gross Description A. ??Liquid based Thin Prep pap with Reflex HPV: ??Cervical/vaginal - Screening ThinPrep Clinical Diagnosis and History Last Menstrual Period: 03/05/24 The patient is a 23 year old female with routine exam. Report Images and scanned documents, if included only viewable in PDF version The performance characteristics of some immunohistochemical stains, in-situ hybridization and fluorescence in-situ hybridization tests and immunophenotyping by flow cytometry cited in this report (if any) were determined by the Surgical Pathology Department at [facility] as part of an ongoing quality measurement specialist program and in compliance with federally mandated regulations drawn from the Clinical Laboratory Improvement Act of 1988 (CLIA '88). ??Some of these tests rely on the use of analyte specific reagents and are subject to specific labeling requirements by the US Food and Drug Administration. ??Such diagnostic tests may only be performed in a facility that is certified by the Department of Health and Human Services as a high complexity laboratory under CLIA '88. ??The FDA has determined that such clearance or approval is not necessary. ??This test is used for clinical purposes. ??It should not be regarded as investigational or for research. ??Nevertheless, federal rules concerning the medical use of analyte specific reagents require that the following disclaimer be attached to the report: This test was developed and its performance characteristics determined by the Surgical Pathology Department of [facility]. ??It has not been cleared or approved by the U. S. Food and Drug Administration. Luciana Stauffer MD LAB CYTOLOGY ORDERABLES Holley l Result PATHOLOGY [facility] * N. gonorrhoeae/C. trachomatis Amplification Vaginal (03/30/2024 3:00 PM CDT) C. trachomatis Not Detected [facility] Comment:Testing performed by : [facility], [address] [facility] [place] [address] N. gonorrhoeae Not Detected [facility]I Comment: Interpretive Data This assay detects Chlamydia trachomatis and Neisseria gonorrhoeae by nucleic acid amplification testing (NAAT). This assay has been cleared by the [place] Food and Drug administration. The performance characteristics of this test have been verified by the [facility] Molecular Infectious Disease laboratory. The performance characteristics of this test have not been evaluated in individuals less than 14 years of age. Current Interpretive Data was last revised on 2023. Testing performed by: [facility], [address] [facility] [place]., [address] Vaginal 03/30/2024 3:00 PM CDT 03/31/2024 5:05 AM CDT Luciana Stauffer MD LAB MICROBIOLOGY - GENERAL O RDERABLES Final Result [facility] [address] [facility] [place] [address] [facility] from Last 3 Months or Most Recently Relevant to Health Maintenance Insurance [facility] [employer] O Care Teams Accounting Systems Analyst Relationship Specialty Start Date End Date Marivel Nj MD [address] [place] [id number] PCP - General Internal Medicine 12/17/23
--- OUTSIDE RECORDS SUMMARY | 2024-10-21 16:15 | XMS_ITS | Clinical Summary ---
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 03/30/20 24 Encounters Date Type Department Care Team Description 10/08/2024 2:00 PM HEAT TREAT TECHNICIAN [facility] Building [address] [place] [id number] Patient desires 10/01/2024 3:30 PM HEAT TREAT TECHNICIAN Telemedicine [facility] Obstetrical Gynecology [address] [place] [phone] Luciana Stauffer MD Patient desires (Primary Dx); Anovulation 09/30/2024 4:15 PM HEAT TREAT TECHNICIAN Clinical Support [facility] Obstetrical Gynecology [address] [place] [phone] Patient desires (Primary Dx) 09/17/2024 Telephone [facility] Primary Care [address] [place] [phone] Marivel Nj MD Med Refill (Nortriptyline 10MG caps) 09/10/2024 Orders Only [facility] Obstetrical Gynecology [address] [place] [phone] Luciana Stauffer MD Patient desires (Primary Dx) 09/01/2024 8:00 AM HEAT TREAT TECHNICIAN [facility] Building [address] [address] Well woman exam; Patient desires 08/18/2024 2:30 PM HEAT TREAT TECHNICIAN Office Visit [facility] Obstetrical Gynecology [address] [place] [phone] Luciana Stauffer MD Patient desires (Primary Dx) from Last 3 Months Immunizations Name Administration Dates Next Due DTaP [...] Conjugate, Unspecified 06/24,04/05/2003,04/28/2002,02/27 Tdap 12/19/2023,10/18/2022,03/18/2013 Varicella 01/23/2008,02/03/2003 Surgical History Surgery Date Site/Laterality Comments TOE SURGERY Bilateral WISDOM TOOTH EXTRACTION MANDIBLE SURGERY Medical History Medical History Date Comments Migraines Family History Medical History Relation Name Comments Endometriosis Maternal Grandmother Endometriosis Mother Lupus Mother Endometriosis Mother's Sister Endometriosis Paternal Grandmother Estrella Hypertension Paternal Grandmother Estrella Breast cancer Neg Hx Colon cancer Neg Hx Ovarian cancer Neg Hx Uterine cancer Neg Hx Relation Name Status Comments Brother Alive Father Alive Maternal Grandfather Alive Maternal Grandmother Alive Mother Alive Mother's Sister Paternal Grandfather Alive Paternal Grandmother Estrella Alive Social History Tobacco Use Types Packs/Day Years [...] on file Legal Sex Female 7:14 PM HEAT TREAT TECHNICIAN Gender Identity Not on file Sexual Orientation Not on file Obstetrics History Para Term AB IAB SAB Ectopic Multiple Livin g Live Births 0 0 0 0 0 0 0 0 0 0 0 Comments Menarche: 16 Last Filed Vital Signs Vital Sign Reading Time Taken Comments Blood Pressure 122/80 08/18/2024 2:31 PM HEAT TREAT TECHNICIAN Pulse 98 02/11/2024 2:50 PM CDT Temperature 37.1 ??C (98.7 ??F) 02/11/2024 2:50 PM CD T Respiratory Rate 15 02/11/2024 2:50 PM CDT Oxygen Saturation 99% 02/11/2024 2:50 PM CDT Inhaled Oxygen Concentration - - Weight 49 kg (108 lb) 08/18/2024 2:31 PM HEAT TREAT TECHNICIAN Height 157.5 cm (5' 2.01 ) 08/18/2024 2:31 PM CS T Body Mass Index 19.75 08/18/2024 2:31 PM HEAT TREAT TECHNICIAN Plan of Treatment Health Maintenance Due Date Last Done Comments Hepatitis C Screening 2001 Pneumococcal vaccine <65 (1 of 2 - PPSV23 or PCV20) 09/14/2003 07/20/2003, 07/20/2003, 04/05/2003, Additional history exists Meningococcal B Vaccine (1 o f 2 - Patient Seeks Protection) 2017 Zoster Vaccine (1 of 2) 2020 Covid-19 Vaccine (3 - Modern a risk series) 12/08/2021 11/10/2021, 10/12/2021 Influenza Vaccine (#1) 2024 5, 07/13/2015, 08/03/2013, Additional history exists Depression Screening 02/10/2025 02/11/2024, 12/17/2023, 12/17/2023 Cervical Cancer Screening 03/30/2025 03/30/2024 Chlamydia and Gonorrhea (GC/ CT) Screening 03/30/2025 03/30/2024 Regular Well Visit/Exam 18-64 03/30/2025 03/30/2024, 12/17/2023 DTaP/Tdap/Td Vaccine (9 - Td or Tdap) 12/18/2033 12/19/2023, 10/18/2022, 03/18/2013, Additional history exists Varicella Vaccines Completed 01/23/2008, 02/03/2003 HPV Vaccines Completed 01/14/2018, 12/27/2015 Procedures Procedure Name Priority Date/Time Associated Diagnosis Comments PROGESTERONE Routine 10/08/2024 2:05 PM HEAT TREAT TECHNICIAN Patient desires US TRANSVAGINAL Schedule Routine, Read Routine (OP Routine) 09/30/2024 5:11 PM HEAT TREAT TECHNICIAN Patient desires ANTIBODY SCREEN Routine 09/01/2024 8:13 AM HEAT TREAT TECHNICIAN Well woman exam ABO/RH Routine 09/01/2024 8:13 AM HEAT TREAT TECHNICIAN Well woman exam TYPE AND SCREEN Routine 09/01/2024 8:13 AM HEAT TREAT TECHNICIAN Well woman exam TOTAL TESTOSTERONE Routine 09/01/2024 8: 13 AM HEAT TREAT TECHNICIAN Patient desires DHEA-SULFATE Routine 09/01/2024 8:13 AM HEAT TREAT TECHNICIAN Patient desires ANTIMULLERIAN HORMONE (AMH) Routine 09/01/2024 8:13 AM HEAT TREAT TECHNICIAN Patient desires PROLACTIN Routine 09/01/2024 8:13 AM HEAT TREAT TECHNICIAN Patient desires FOLLICLE STIMULATING HORMONE Routine 09/01/2024 8:13 AM HEAT TREAT TECHNICIAN Patient desires ESTRADIOL Routine 09/01/2024 8:13 AM HEAT TREAT TECHNICIAN Patient desires HEMOGLOBIN A1C Routine 09/01/2024 8:13 AM HEAT TREAT TECHNICIAN Well woman exam PROGESTERONE Routine 09/01/2024 8:13 AM HEAT TREAT TECHNICIAN Patient desires THYROID FUNCTION CASCADE Routine 09/01/2024 8:13 AM HEAT TREAT TECHNICIAN Well woman exam RUBELLA IGG Routine 09/01/2024 8:13 AM HEAT TREAT TECHNICIAN Patient desires VARICELLA ZOSTER ANTIBODY, IGG Routine 09/01/2024 8:13 AM HEAT TREAT TECHNICIAN Patient desires N. GONORRHOEAE/C. TRACHOMATIS AMPLIFICATION Routine 03/30/2024 3:00 PM CDT Well woman exam PAP WITH REFLEX TO HIGH RISK HPV Routine 03/30/2024 3:00 PM CDT Well woman exam from Last 3 Months or Most Recently Relevant to Health Maintenance Results * (ABNORMAL) Progesterone (10/08/2024 2:05 PM HEAT TREAT TECHNICIAN) Progesterone 23.2(H) 0.0 - 0.2 ng/mL Comment: Interpretive Data Males: ?<0.15 ng/mL Females: ??Follicular ?<0.20 ng/mL ??Ovulation ? <4.1 ng/mL ??Luteal ?4.1 - ??14.5 ng/mL ??1st Trimester ?? 11.0 - ??44.0 ng/mL ??2nd Trimester ?? 25.0 - ??83.0 ng/mL ??3rd Trimester ?? 59.0 - 214.0 ng/mL ??Postmenopausal ??<0.13 ng/mL Current interpretive data was last revised 2021. Blood 10/08/2024 2:05 PM HEAT TREAT TECHNICIAN 10/08/2024 6:57 PM HEAT TREAT TECHNICIAN Luciana Stauffer MD LAB BLOOD ORDERABLES Final R esult [facility] [address] [facility] [place] [address] * US Transvaginal (09/30/2024 5:11 PM HEAT TREAT TECHNICIAN) Anatomical Region Laterality Modality Pelvis N/A Ultrasound Narrative 10/01/2024 2:41 PM HEAT TREAT TECHNICIAN Last Menstrual Period: 08/2024 Indication: desires History of Pelvic Surgery: no Uterus size in cm: 7.47 x 4.15 x 3.30 Endometrium: 11.89 mm Right Ovary size in cm: 3.62 x 3.38 x 2.95 ?Cyst present: yes ?Size of cyst in cm: 2.72 x 2.46 x 1.84 Left Ovary size in cm: 2.87 x 2.27 x 2.10 ?Cyst present: no Life Skills Coordinator impression: Endo = 11.89 mm. Right ovary [...] Res ult - Final * Thyroid Function [place] (09/01/2024 8:13 AM HEAT TREAT TECHNICIAN) TSH 2.30 0.30 - 4.20 mcIUnit/mL Comment:Testing performed by : [facility], [address] [place] [address]., [address] Blood 09/01/2024 8:13 AM HEAT TREAT TECHNICIAN 09/01/2024 10:01 AM HEAT TREAT TECHNICIAN Luciana Stauffer MD LAB BLOOD ORDERABLES Edited Result - Final Performing Organization Address [facility] Co de Phone Number [facility] [address] [place] [address] * Antimullerian hormone (AMH) (09/01/2024 8:13 AM HEAT TREAT TECHNICIAN) AMH, ab 6.0 1.2 - 12 ng/mL [place] ref Lab Comment: ADDITIONAL INFORMATION The testing method is an electrochemiluminescence assay manufactured by [employer] and performed on the Antonio system. Values obtained with different assay methods or kits may be different and cannot be used interchangeably. This test has been modified from the manufacturers instructions. Its performance characteristics were determined by [facility] in a manner consistent with CLIA requirements. This test has not been cleared or approved by the U.S. Food and Drug Administration. Test Performed by: [place] [address] Corrosion Control Specialist: Lakshmi Snell Ph.D.; CLIA# [id number] Testing performed by: [address] [address] Blood 09/01/2024 8:13 AM HEAT TREAT TECHNICIAN 09/01/2024 9:57 AM HEAT TREAT TECHNICIAN Luciana Stauffer MD LAB BLOOD ORDERABLES Final R esult Performing Organization Address [facility]/ZIP Co de Phone Number [place] [address] [place] [address] [facility] * ABO/Rh (09/01/2024 8:13 AM HEAT TREAT TECHNICIAN) ABO/Rh O Positive Comment:Testing performed by : [address] [address] Blood 09/01/2024 8:13 AM HEAT TREAT TECHNICIAN 09/01/2024 10:03 AM HEAT TREAT TECHNICIAN Narrative [place] - 09/01/2024 10:49 AM HEAT TREAT TECHNICIAN Has the patient had Daratumumab or Isatuximab in the past 6 months?->Unknown Hx of or candidate for Bone Marrow/Stem Cell transplant?->No Luciana Stauffer MD LAB BLOOD BANK TEST ORDERABL ES Final Result Performing Organization Address [facility] Co de Phone Number [place] [address] [place] [address] * Prolactin (09/01/2024 8:13 AM HEAT TREAT TECHNICIAN) Prolactin 17.9 4.8 - 23.3 ng/mL Comment:Testing performed by : [facility], [address] [place]., [address] Blood 09/01/2024 8:13 AM HEAT TREAT TECHNICIAN 09/01/2024 2:23 PM HEAT TREAT TECHNICIAN Luciana Stauffer MD LAB BLOOD ORDERABLES Final R esult Performing Organization Address [facility] de Phone Number [address] [place] [address] * (ABNORMAL) Progesterone (09/01/2024 8:13 AM HEAT TREAT TECHNICIAN) Progesterone 1.2(H) 0.0 - 0.2 ng/mL Comment: Interpretive Data Males: ?<0.15 ng/mL Females: ??Follicular ?<0.20 ng/mL ??Ovulation ? <4.1 ng/mL ??Luteal ?4.1 - ??14.5 ng/mL ??1st Trimester ?? 11.0 - ??44.0 ng/mL ??2nd Trimester ?? 25.0 - ??83.0 ng/mL ??3rd Trimester ?? 59.0 - 214.0 ng/mL ??Postmenopausal ??<0.13 ng/mL Current interpretive data was last revised 2021. Blood 09/01/2024 8:13 AM HEAT TREAT TECHNICIAN 09/01/2024 1:11 PM HEAT TREAT TECHNICIAN Luciana Stauffer MD LAB BLOOD ORDERABLES Final R esult [facility] [employer] [address] * (ABNORMAL) DHEA-sulfate (09/01/2024 8:13 AM HEAT TREAT TECHNICIAN) DHEA-S 112.0(L) 148.0 - 407.0 mcg/dL Comment:Testing performed by : [facility], [address] [facility] [place]., [address] Blood 09/01/2024 8:13 AM HEAT TREAT TECHNICIAN 09/01/2024 2:23 PM HEAT TREAT TECHNICIAN Luciana Stauffer MD LAB BLOOD ORDERABLES Final R esult [address] [place] [address] * Estradiol (09/01/2024 8:13 AM HEAT TREAT TECHNICIAN) Estradiol 320.0 pg/mL Comment: Interpretive Data Males: 11 ? 43 pg/mL Females: Premenopausal: 31 ? 533 pg/mL Postmenopausal: < 50 pg/mL Patients treated with Fluvestrant (Faslodex) should be tested using an alternate assay such as LC-MS due to potential for cross-reactivity. Estradiol varies widely throughout the menstrual cycle. Current interpretive data was last revised 2024. Blood 09/01/2024 8:13 AM HEAT TREAT TECHNICIAN 09/01/2024 1:11 PM HEAT TREAT TECHNICIAN Narrative [place] - 09/01/2024 1:48 PM HEAT TREAT TECHNICIAN Is patient taking Fulvestrant?->No Luciana Stauffer MD LAB BLOOD ORDERABLES Final R esult Performing Organization Address [facility] Co de Phone Number [id number] [place] [address] * Rubella IgG antibody Blood (09/01/2024 8:13 AM HEAT TREAT TECHNICIAN) Rubella IgG Reactive Reactive Blood 09/01/2024 8:13 AM HEAT TREAT TECHNICIAN 09/01/2024 1:12 PM HEAT TREAT TECHNICIAN Luciana Stauffer MD LAB MICROBIOLOGY - GENERAL O RDERABLES Final Result Performing Organization Address [facility] de Phone Number [address] [place] [address] * Antibody screen (09/01/2024 8:13 AM HEAT TREAT TECHNICIAN) Jesus, indirect, Gel Interpretation Negative ABSC Comment:Testing performed by : [facility], [address] [place] [address]., [address] Blood 09/01/2024 8:13 AM HEAT TREAT TECHNICIAN 09/01/2024 10:03 AM HEAT TREAT TECHNICIAN Narrative [place] - 09/01/2024 10:49 AM HEAT TREAT TECHNICIAN Has the patient had Daratumumab or Isatuximab in the past 6 months?->Unknown Hx of or candidate for Bone Marrow/Stem Cell transplant?->No Luciana Stauffer MD LAB BLOOD BANK TEST ORDERABL ES Final Result Performing Organization Address [facility] Co de Phone Number [address] [place] [address] * Varicella Zoster IgG antibody Blood (09/01/2024 8:13 AM HEAT TREAT TECHNICIAN) VZV IgG Reactive Reactive Comment: Reactive: Results suggest response to immunization or prior exposure to the virus. Testing performed by: [facility], [address], [place]., [address] Blood 09/01/2024 8:13 AM HEAT TREAT TECHNICIAN 09/01/2024 2:23 PM HEAT TREAT TECHNICIAN Luciana Stauffer MD LAB MICROBIOLOGY - GENERAL O RDERABLES Final Result [facility] [address] [facility] [employer] [place] [address] * Total testosterone (09/01/2024 8:13 AM HEAT TREAT TECHNICIAN) Pathologist [facility] Testosterone 31.10 8.40 - 48.10 ng/dL Blood 09/01/2024 8:13 AM HEAT TREAT TECHNICIAN 09/01/2024 1:11 PM HEAT TREAT TECHNICIAN Luciana Stauffer MD LAB BLOOD ORDERABLES Final R esult Performing Organization Address [facility] de Phone Number TIFF[place] [address] [address] * Hemoglobin A1c (09/01/2024 8:13 AM HEAT TREAT TECHNICIAN) [facility] Hgb A1C 5.3 4.0 - 5.6 % Comment:Testing performed by : [address] [address] Estimated Average Glucose 105 mg/dL [place] Comment: The ADA recommends reporting an estimated Average Glucose (eAG) with all Hemoglobin A1c results using the equation derived from a study of 507 normal and diabetic adults. ??Minority populations were underrepresented and children were not included. ?? (Diabetes Care 31:0497-5866, 2008). ??The eAG is not equivalent to a fasting glucose. Testing performed by: [address] [address] Blood 09/01/2024 8:13 AM HEAT TREAT TECHNICIAN 09/01/2024 10:03 AM HEAT TREAT TECHNICIAN Luciana Stauffer MD LAB BLOOD ORDERABLES Final R esult Performing Organization Address City/[facility] Co de Phone Number [place] [phone] [facility] [place] [address] * Follicle stimulating hormone (09/01/2024 8:13 AM HEAT TREAT TECHNICIAN) FSH 8.4 1.5 - 12.4 IUnits/L Blood 09/01/2024 8:13 AM HEAT TREAT TECHNICIAN 09/01/2024 1:11 PM HEAT TREAT TECHNICIAN Luciana Stauffer MD LAB BLOOD ORDERABLES Final R esult [facility] [address] [facility] Department [place] [address] * Pap with reflex to High Risk HPV and Genotyping (Cytology Component) (03/30/2024 3:00 PM CDT) Endocervical (Pap test) 03/30/2024 3:00 PM CDT 03/31/2024 3:36 PM CDT Narrative PATHOLOGY [facility] - 04/07/2024 3:46 PM CDT EPIC results best viewed via link to PDF [facility]ology [place], [place] [id number] Note to Patients: This report may contain [...] Gender: ??F : ??2000 (Age: 23) Address: ??[address] [place] [address] [place] [address] ??[id number] Hospital #: ??[id number] Service: ??DEFAULT Location: ?? Patient Type: ??[facility] SPECIMEN Taken: ??03/30/2024 Received: ??03/31/2024 Accessioned: ??04/01/2024 [...] clinical information and biopsy results as indicated. [facility] Clinical Laboratory Improvement Amendments (CLIA) mandate that cytologic and histologic results be correlated for laboratory quality tech & improvement standards. ??FOR ALL HIGH-GRADE CASES [...] determined by the Surgical Pathology Department at [facility] as part of an ongoing quality associate program and in compliance with federally mandated [...] determined by the Surgical Pathology Department of [facility]. ??It has not been cleared or approved by the U. S. Food and Drug Administration. Luciana Stauffer MD LAB CYTOLOGY ORDERABLES Holley l Result PATHOLOGY [facility] * N. gonorrhoeae/C. trachomatis Amplification Vaginal (03/30/2024 3:00 PM CDT) C. trachomatis Not Detected [facility] Comment:Testing performed by : [facility], [address] [place] [address]., [address] N. gonorrhoeae Not Detected [facility] CAI Comment: Interpretive Data This assay detects Chlamydia trachomatis and Neisseria gonorrhoeae by nucleic acid amplification testing (NAAT). This assay has been cleared by the [place] Food and Drug administration. The performance characteristics of this test have been verified by the [facility] Molecular Infectious Disease laboratory. The performance characteristics of this test have not been evaluated in individuals less than 14 years of age. Current Interpretive Data was last revised on 2023. Testing performed by: [facility], [address] [place] [address]., [id number] Vaginal 03/30/2024 3:00 PM CDT 03/31/2024 5:05 AM CDT Luciana Stauffer MD LAB MICROBIOLOGY - GENERAL O RDERABLES Final Result [facility] [address] [facility] Department of Laboratories [place], [place] [id number] [facility] from Last 3 Months or Most Recently Relevant to Health Maintenance Insurance [facility] HMO/PPO Address: [address] [address] [place] [address] [employer] Care Teams Slate Cutter Operator Relationship Specialty Start Date End Date Marivel Nj MD [address] [place] [id number] PCP - General Internal Medicine 12/17/23
--- OUTSIDE RECORDS SUMMARY | 2024-10-21 16:15 | XMS_ITS | Patient Health Summary ---
Author Organization [facility] Address [address] [place] [address] Care Team Providers Care Fruit Tester Name Role Phone Meche Veras DO Primary Care Provider [phone] Note from [facility],non-owned Affiliates and Associated Physician Practices is amultiple site organization consisting of ambulatory clinics and hospital sitesin [place] and [place]. This disclosure is being madepursuant to the Care Everywhere program and may not contain all information available regarding this patient. Last updated 18.[facility] Allergies No known active allergies Medications Be aware that medications may not be up to date on this document. Always verify current medications with the patient. 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 (AFLURIA, FLUZONE TRIVALENT; 6MO+) (IIV3)(Given 08/03/2013) * DTaP VACCINE IM (6wk-6yrs)(Given 12/24/2006, 04/05/2003, 06/29/2002, 04/28/2002, 02/27/2002) * HEP A PEDS 2 DOSE(Given 12/23/2006, 2005) * HEP B VACCINE, PED/ADOL(Given 04/05/2008, 04/28/2002, 02/27/2002) * HIB BOOSTER(Given 04/05/2008, 04/28/2002, 02/27/2002) * Human Papilloma Virus Ninevalent Vaccine(Given 01/14/2018) * Human Papilloma Virus Quadrivalent Vaccine(Given 12/27/2015) * INFLUENZA VACCINE, QUADR. (FLUZONE; FLULAVAL; FLUARIX; AFLURIA QUADRIVALENT; 6MO+), 0.5 ML (IIV4)(Given 07/13/2015) * MENINGOCOCCAL CONJUGATE (MCV4P)(Given 01/14/2018, 03/18/2013) * MMR(Given 12/23/2006, 02/03/2003) * PNEUMOCOCCAL CONJ, PEDS(Given 07/20/2003, 04/05/2003, 04/28/2002, 02/27/2002) * POLIO IPV(Given 2005, 02/03/2003, 04/28/2002, 02/27/2002) * PPD(Given 2005) * TDAP (7yrs+)(Given 03/18/2013) * VARICELLA(Given 01/23/2008, 02/03/2003) Social History Tobacco Use Types Packs/Day Years [...] AM CDT Pulse 96 08/02/2016 2:54 PM UNDERWEAR WELTER Temperature 36.6 ??C (97.9 ??F) 07/15/2020 8:22 AM CD T Respiratory Rate 18 04/07/2015 10:23 AM CDT Oxygen Saturation 100% 08/02/2016 2:54 PM UNDERWEAR WELTER Inhaled Oxygen Concentration - - Weight 43.3 kg (95 lb 6.4 oz) 07/13/2020 9:54 AM CDT Height 160 cm (5' 3 ) 07/13/2020 9:54 AM CDT Body Mass Index 16.9 07/13/2020 9:54 AM CDT Procedures * HEMOGLOBIN - POINT OF CARE (AMB)(Performed 07/13/2020) Performed for Screening for deficiency anemia * CARDIAC EKG ORDER(Performed 10/25/2019) * LIPID PROFILE+GLUCOSE - POINT OF CARE (AMB)(Performed 06/05/2019) Performed for Screening for lipid disorders * HEMOGLOBIN - POINT OF CARE (AMB)(Performed 06/05/2019) Performed for Screening for deficiency anemia * CULTURE STREP GROUP A(Performed 09/25/2018) Performed for Pharyngitis, unspecified etiology * STREP A SCREEN - POINT OF CARE (AMB) STL(Performed 09/25/2018) Performed for Pharyngitis, unspecified etiology * STREP A SCREEN - POINT OF CARE (AMB) STL(Performed 05/29/2018) Performed for Acute pharyngitis, unspecified etiology * HEMOGLOBIN - POINT OF CARE (AMB)(Performed 01/14/2018) Performed for Screening, anemia, deficiency, iron * CULTURE STREP GROUP A(Performed 12/16/2017) Performed for Acute pharyngitis, unspecified etiology * STREP A SCREEN - POINT OF CARE (AMB)(Performed 12/16/2017) Performed for Acute pharyngitis, unspecified etiology * CULTURE STREP GROUP A(Performed 08/29/2017) Performed for Acute pharyngitis, unspecified etiology * STREP A SCREEN - POINT OF CARE (AMB)(Performed 08/29/2017) Performed for Acute pharyngitis, unspecified etiology * STREP A SCREEN - POINT OF CARE (AMB) STL(Performed 08/02/2016) Performed for Sore throat * CULTURE URINE(Performed 07/16/2016) Performed for Dysuria * URINALYSIS W MICROSCOPIC - POINT OF CARE(Performed 07/16/2016) Performed for Dysuria * CULTURE URINE(Performed 12/27/2015) Performed for Dysuria * URINALYSIS W MICROSCOPIC - POINT OF CARE(Performed 12/27/2015) Performed for Dysuria * IMAGING/RADIOLOGY/XRAY RESULTS ORDER(Performed 06/18/2015) * LAB RESULTS ORDER(Performed 06/13/2015) * IMAGING/RADIOLOGY/XRAY RESULTS ORDER(Performed 06/13/2015) * T4 FREE(Performed 01/04/2015) * ESTRADIOL ULTRA SENSITIVE(Performed 01/04/2015) * FSH + LH PANEL PEDIATRIC(Performed 01/04/2015) * BASIC METABOLIC PANEL (CALCIUM TOTAL)(Performed 01/04/2015) Performed for Delayed puberty * CBC W AUTO DIFFERENTIAL(Performed 01/04/2015) Performed for Delayed puberty * TSH(Performed 01/04/2015) Performed for Delayed puberty * XR BONE AGE STUDY(Performed 01/04/2015) Performed for Delayed puberty * CULTURE ANAEROBE+AEROBE+GRAM STAIN(Performed 05/01/2013) Performed for Skin infection * STREP A SCREEN - POINT OF CARE (AMB)(Performed 05/01/2013) Performed for Acute pharyngitis * LIPID PROFILE+GLUCOSE - POINT OF CARE (AMB)(Performed 03/18/2013) Performed for Screening for lipoid disorders * XR FOOT RIGHT 3VW OR MORE(Performed 01/23/2012) Performed for Polydactyly of toes * XR FOOT LEFT 3VW OR MORE(Performed 01/23/2012) Performed for Polydactyly of toes * XR SCOLIOSIS 2 OR 3VW(Performed 01/23/2012) Performed for Scoliosis * XR FOOT LEFT 2VW(Performed 08/07/2010) Performed for Polydactyly of toes * XR FOOT RIGHT 1VW(Performed 08/07/2010) Performed for Polydactyly of toes * XR FOOT LEFT 3VW OR MORE(Performed 08/01/2010) Performed for Deformity * XR FOOT RIGHT 3VW OR MORE(Performed 08/01/2010) Performed for Deformity * IMAGING/RADIOLOGY/XRAY RESULTS ORDER(Performed 03/01/2010) * CULTURE STREP GROUP A(Performed 11/02/2008) * STREP A SCREEN I(Performed 11/02/2008) * GROSS + MICRO EXAM(Performed 06/23/2002) Results * HEMOGLOBIN - POINT OF CARE (AMB) (07/13/2020) Only the most recent of3 resultswithin the time period is included. Hemoglobin POCT 14.3 12.0 - 15.0 gm/dL Blood BLOOD SPECIMEN / Unknown 07/13/2020 Ernie Guerrero MD LAB - POINT OF CARE ORDERABLES * CARDIAC EKG ORDER (10/25/2019) Scanned Document CARDIAC SERVICES ORD ERABLES * LIPID PROFILE+GLUCOSE - POINT OF CARE (AMB) (06/05/2019) Only the most recent of2 resultswithin the time period is included. QC Verified Yes Yes Cholesterol POCT 142 200 mg/dl HDL POCT 81 mg/dL Triglycerides POCT 94 130 mg/dL LDL 42 130 mg/dl Non HDL Cholesterol POCT 61 145 mg/dL Total Cholesterol/HDL Ratio POCT 1.7 6.0 Glucose 92 70 - 126 mg/dL Blood BLOOD SPECIMEN / Unknown 06/05/2019 Ginette Leiva VP PUBLIC [employer]ATIONS[employer]BRE[employer] SUPERVISOR LAB - POINT OF CARE ORDERABLES * CULTURE STREP GROUP A (09/25/2018 2:06 PM UNDERWEAR WELTER) Only the most recent of4 resultswithin the time period is included. Beta-Strep Culture, Group A Only Negative [facility] ACCOUNT BILL Microbiology ENTIRE THROAT (SURFACE REGION OF NECK) / Unknown 09/25/2018 2:06 PM UNDERWEAR WELTER 09/25/2018 Narrative Resulting Agency Comment [facility] [address] ??On license of [facility] [id number] Magda Charlton VP PUBLIC [employer]ATIONS[employer]BRELL[employer] SUPERVISOR LAB - MICROBIOLOG Y ORDERABLES [facility] ACCOUNT BILL [address] [place] [address] * STREP A SCREEN - POINT OF CARE (AMB) STL (09/25/2018) Only the most recent of3 resultswithin the time period is included. Strep A Rapid POCT Negative Negative Strep A Internal Control Present Lot # [id number] Expiration Date [id number] Throat ENTIRE THROAT (SURFACE REGION OF NECK) / Unknown 09/25/2018 Magda Charlton VP [employer]ATIONS[employer] SUPERVISOR LAB - POINT OF CA RE ORDERABLES * STREP A SCREEN - POINT OF CARE (AMB) (12/16/2017) Only the most recent of3 resultswithin the time period is included. Strep A Rapid POCT Negative Negative Strep A Internal Control Present Other ENTIRE THROAT (SURFACE REGION OF NECK) / Unknown 12/16/2017 Magda Charlton VP [employer]ATIONS[employer] SUPERVISOR LAB - POINT OF CA RE ORDERABLES * CULTURE URINE (07/16/2016 6:51 PM CDT) Only the most recent of2 resultswithin the time period is included. Urine Culture Routine Final report [facility] ACCOUNT BILL Result 1 No growth [facility] ACCOUNT BILL Urine URINE SPECIMEN OBTAINED BY CLEAN CATCH PROCEDURE / Unknown 07/16/2016 6:51 PM CDT 07/17/2016 11:19 PM CDT Narrative Resulting Agency Comment [facility] [address] [facility] [facility] ??On license of [facility] [id number] Saundra Htuchinson MD LAB - MICROBIOLOGY O RDERABLES [facility] ACCOUNT BILL [address] [place] [address] * URINALYSIS W MICROSCOPIC - POINT OF CARE (07/16/2016 6:23 PM CDT) Only the most recent of2 resultswithin the time period is included. Leukocyte UA negative Negative Nitrite UA POCT negative Negative Urobilinogen UA 0.2 0.1 - 1.0 Protein UA POCT negative Negative pH UA 8.0 5.0 - 8.0 pH units Blood UA negative Negative Specific Ambler UA POCT 1.030 1.002 - 1.030 Ketone UA trace Negative Bilirubin UA POCT negative Negative Glucose UA negative Negative WBC UA POCT 2-3 0 - 1 HPF RBC UA POCT 0 0 - 1 HPF Epithelial Cell UA POCT 0 - 1 HPF Bacteria UA POCT None Mucus UA POCT None Casts UA POCT None LPF Crystals UA POCT None LPF Urine Other Urine URINE / Unknown 07/16/2016 6 :23 PM CDT Saundra Hutchinson MD LAB - POINT OF CARE ORDERABLES * IMAGING/RADIOLOGY/XRAY RESULTS ORDER (06/18/2015) Only the most recent of3 resultswithin the time period is included. Anatomical Region Laterality Modality Other Emanuel Matos IMAGING * LAB RESULTS ORDER (06/13/2015 10:47 PM CDT) Narrative 06/13/2015 10:47 PM CDT Ordered by an unspecified provider. Scanned Document LAB - THERAPEUTIC DR BILLY MONITORING ORDERABLES * (ABNORMAL) FSH + LH PANEL PEDIATRIC (01/04/2015 2:45 PM CDT) LH Pediatric 0.02(L) 0.04 - 10.80 mIU/mL [facility] Comment: Female Reference Ranges for LH (Luteinizing ??Hormone), Pediatric: ?Females: ?3-7 years ?< or = 0.26 mIU/mL ?8-9 years ?< or = 0.69 mIU/mL ? 10-11 years ? < or = 4.38 mIU/mL ? 12-14 years ? 0.04-10.80 mIU/mL ? 15-17 years ? 0.97-14.70 mIU/mL ?Oscar Stages ? I ? < or = 0.15 mIU/mL ?II ? < or = 2.91 mIU/mL ? III ? < or = 7.01 mIU/mL ?IV-V ?0.10-14.70 mIU/mL This test was developed and its performance characteristics have been determined by [employer] [facility]. Performance characteristics refer to the analytical performance of the test. Test Performed at: [email or web address] [address] [place], [place] ??[id number] YOLA MARTIN MD PHD [facility] Pediatrics 0.90 0.87 - 9.16 mIU/mL [facility] Comment: Female Pediatric Reference Ranges for [facility]SH: 5-9 ?? years: 0.72-5.33 mIU/mL 10-13 years: 0.87-9.16 mIU/mL 14-17 years: 0.64-10.98 mIU/mL This test was developed and its performance characteristics have been determined by [employer] [facility]. Performance characteristics refer to the analytical performance of the test. 01/04/2015 2:45 PM CDT 01/04/2015 2:47 PM CDT Saundra Hutchinson MD LAB - CHEMISTRY NIMISHA RICHEY [facility] Organization Address City/State/ZIP Co de Phone Number [facility] [address] [place] [address] * ESTRADIOL ULTRA SENSITIVE (01/04/2015 2:45 PM CDT) Estradiol Ultrasensitive LC/MS/MS 6 pg/mL [facility] Comment: Adult Female Reference Ranges for Estradiol, ??Ultrasensitive, LC/MS/MS: ??Follicular Phase: ? 39-375 ??pg/mL ??Luteal Phase: ? 48-440 ??pg/mL ??Postmenopausal Phase: < or = 10 pg/mL Pediatric Female Reference Ranges for Estradiol, ??Ultrasensitive, LC/MS/MS: ??Pre-pubertal ?(1-9 years): ? < or = 16 pg/mL ??10-11 years: ? < or = 65 pg/mL ??12-14 years: ? < or = 142 pg/mL ??15-17 years: ? < or = 283 pg/mL Test Performed at: [email or web address] [address] [place], [place] ??[phone] YOLA MARTIN MD PHD 01/04/2015 2:45 PM CDT 01/04/2015 2:47 PM CDT Saundra Hutchinson MD LAB - CHEMISTRY NIMISHA RICHEY Performing Organization Address [facility] Co de Phone Number [facility] [address] [place] [address] * CBC W AUTO DIFFERENTIAL (01/04/2015 2:45 PM CDT) Pathologist [facility] White Blood Cell Count 7.1 4.5 - 13.0 Thousand/u L [facility] RBC 4.49 3.80 - 5.10 Million/uL [facility] Hemoglobin 13.1 11.5 - 15.3 g/dL [facility] Hematocrit 40.2 34.0 - 46.0 % [facility] MCV 89.6 78.0 - 98.0 fL [facility] MCH 29.1 25.0 - 35.0 pg [facility] MCHC 32.5 31.0 - 36.0 g/dL [facility] RDW 13.0 11.0 - 15.0 % [facility] Platelet Count 221 140 - 400 Thousand/u L [facility] Neutrophil Absolute 3486 1800 - 8000 cells/uL [facility] Lymphocytes Absolute 2748 1200 - 5200 cells/uL [facility] Absolute Monocytes 561 200 - 900 cells/uL [facility] Eosinophils Absolute 277 15 - 500 cells/uL [facility] Basophils Absolute 28 0 - 200 cells/uL [facility] Granulocytes % 49.1 % [facility] Lymphocytes % 38.7 % [facility] Monocytes % 7.9 % [facility] Eosinophils % 3.9 % [facility] Basophils % 0.4 % [facility] Comment: Test Performed at: [email or web address] [address] ??[phone] ROSS GEIGER DO,MPH Blood specimen (specimen) BLOOD SPECIMEN / Unknown 01/04/2015 2:45 PM CDT 01/04/2015 2:47 PM CDT Saundra Hutchinson MD LAB - HEMATOLOGY LIZANDRO ALBARRAN Performing Organization Address [facility] Co de Phone Number [facility] [address] [place] [phone] * BASIC METABOLIC PANEL (CALCIUM TOTAL) (01/04/2015 2:45 PM CDT) Pathologist [facility] Glucose 91 65 - 99 mg/dL [facility] Comment: ? Fasting reference interval BUN 11 7 - 20 mg/dL [facility] Creatinine 0.58 0.40 - 1.00 mg/dL [facility] Comment: Patient is <18 years old. Unable to calculate eGFR. BUN/Creatinine Ratio NOT APPLICABLE 6 - (calc) [facility] Sodium 140 135 - 146 mmol/L [facility] Potassium 4.3 3.8 - 5.1 mmol/L [facility] Chloride 106 98 - 110 mmol/L [facility] CO2 23 19 - 30 mmol/L [facility] Calcium 9.8 8.9 - 10.4 mg/dL [facility] Comment: Test Performed at: [facility] [id number] [place] [address] ??[phone] ROSS GEIGER DO,MPH Blood specimen (specimen) BLOOD SPECIMEN / Unknown 01/04/2015 2:45 PM CDT 01/04/2015 2:47 PM CDT Saundra Hutchinson MD LAB - CHEMISTRY NIMISHA RICHEY [facility] Organization Address City/State/ZIP Co de Phone Number [facility] [address] [place] [address] * TSH (01/04/2015 2:45 PM CDT) TSH 1.78 mIU/L [facility] Comment: ? Reference Range ? 1-19 Years 0.50-4.30 ? Ranges ? First trimester ?? 0.26-2.66 ? Second trimester ??0.55-2.73 ? Third trimester ?? 0.43-2.91 REPORT COMMENT: FASTING:NO Test Performed at: [email or web address] [address] ??[phone] ROSS GEIGER DO,MPH Blood specimen (specimen) BLOOD SPECIMEN / Unknown 01/04/2015 2:45 PM CDT 01/04/2015 2:47 PM CDT Saundra Hutchinson MD LAB - CHEMISTRY NIMISHA RICHEY Performing Organization Address [facility] Co de Phone Number [facility] [address] [place] [address] * T4 FREE (01/04/2015 2:45 PM CDT) T4 Free 1.0 0.9 - 1.4 ng/dL [facility] Comment: Test Performed at: [email or web address] ??[phone] RSOS GEIGER DO,MPH 01/04/2015 2:45 PM CDT 01/04/2015 2:47 PM CDT Saundra Hutchinson MD LAB - CHEMISTRY NIMISHA RICHEY Performing Organization Address [facility] Co de Phone Number [facility] [address] [place] [phone] * XR BONE AGE STUDY (01/04/2015) Anatomical Region Laterality Modality Upper Extremity, Wrist / Hand Ot her Saundra Hutchinson MD DIAGNOSTIC IMAGING O RDERABLES * CULTURE ANAEROBE + AEROBE + GRAM STAIN (PO REF LAB) (05/01/2013 3:47 PM CDT) Pathologist [facility] Anaerobic Culture Final report [facility] ACCOUNT BILL Result 1 [facility] ACCOUNT BILL Comment:No anaerobic growth in 72 hours. Aerobic Culture Final report [facility] ACCOUNT BILL Result 1 Staphylococcus aureus [facility] ACCOUNT BILL Comment: Recovered from broth only. Based on resistance to penicillin and susceptibility to oxacillin this isolate would be susceptible to: * Penicillinase-stable penicillins; such as: ?Cloxacillin ?Dicloxacillin ?Nafcillin * Beta-lactam/beta-lactamase inhibitor combinations; such as: ?Amoxicillin-clavulanic acid ?Ampicillin-sulbactam * Antistaphylococcal cephems; such as: ?Cefaclor ?Cefuroxime * Antistaphylococcal carbapenems; such as: ?Imipenem ?Meropenem Antimicrobial Susceptibility [facility] ACCOUNT BILL Comment: ?? S = Susceptible; I = Intermediate; R = Resistant ? P = Positive; N = Negative ?MICS are expressed in micrograms per mL ?? Antibiotic ? RSLT#1 ?RSLT#2 ?RSLT#3 ?RSLT#4 Ciprofloxacin ?R Clindamycin ?R Erythromycin ? R Gentamicin ? S Levofloxacin ? R Linezolid ?S Moxifloxacin ? R Oxacillin ?S Penicillin ? R Quinupristin/Dalfopristin ?S Rifampin ? S Tetracycline ? S Trimethoprim/Sulfa ? S Vancomycin ? S Gram Stain Result Final report [facility] ACCOUNT BILL Result 1 [facility] ACCOUNT BILL Comment:No white blood cells seen. Result 2 No organisms seen [facility] ACCOUNT BILL TISSUE SPECIMEN FROM SKIN / Unknown 05/01/2013 3:47 PM CDT 05/01/2013 8:05 PM CDT Narrative Resulting Agency Comment [facility] [address] [facility] [facility] ??On license of [facility] [id number] Saundra Hutchinson MD LAB - MICROBIOLOGY O RDERABLES [facility] ACCOUNT BILL * XR FOOT 3+ VW RIGHT (01/23/2012) Only the most recent of2 resultswithin the time period is included. Anatomical Region Laterality Modality Ankle / Foot Other Saundra Hutchinson MD DIAGNOSTIC IMAGING O RDERABLES * XR FOOT 3+ VW LEFT (01/23/2012) Only the most recent of2 resultswithin the time period is included. Anatomical Region Laterality Modality Ankle / Foot Other Saundra Hutchinson MD DIAGNOSTIC IMAGING O RDERABLES * XR SPINE SCOLIOSIS 2 VW MP (01/23/2012) Anatomical Region Laterality Modality Spine Other Saundra Hutchinson MD DIAGNOSTIC IMAGING O RDERABLES * XR FOOT 2 VW LEFT (08/07/2010 11:30 AM UNDERWEAR WELTER) Anatomical Region Laterality Modality Ankle / Foot Radiographic Tyesha ging 08/07/2010 1:26 PM UNDERWEAR WELTER Impressions 08/08/2010 10:20 AM UNDERWEAR WELTER Hallux varus deformity, corrected and internally stabilized. D: Yunior Hassan ??Demond Benjamin Narrative 08/08/2010 10:20 AM UNDERWEAR WELTER Exam: Portable left foot 4 views Date: August 07, 2010 Comparison: August 01, 2010 Findings: Digital intraoperative images were captured. The previously described hallux varus deformity has been corrected. A surgically placed wire now stabilizes the first digit of the left foot. The bones are in near anatomic alignment. Procedure Note Mason Vázquez MD - 08/08/2010 Exam: Portable left foot 4 views Date: August 07, 2010 Comparison: August 01, 2010 Findings: Digital intraoperative images were captured. The previously described hallux varus deformity has been corrected. A surgically placed wire now stabilizes the first digit of the left foot. The bones are in near anatomic alignment. IMPRESSION Hallux varus deformity, corrected and internally stabilized. D: Yunior Benjamin M.D. Iwona Sarmiento MD DIAGNOSTIC IMAGING O G[facility]RIELA * XR FOOT RIGHT 1 VW (08/07/2010 11:28 AM UNDERWEAR WELTER) Anatomical Region Laterality Modality Radiographic Tyesha ging 08/07/2010 1:23 PM UNDERWEAR WELTER Impressions 08/08/2010 10:20 AM UNDERWEAR WELTER Internally stabilized and corrected hallux varus deformity. D: Yunior Hassan ??Demond Benjamin Narrative 08/08/2010 10:20 AM UNDERWEAR WELTER Exam: Portable Right foot one view Date: August 07 2010 at approximately 1016 hours Comparison: August 01 2010 Findings: A wire traverses phalanges and distal metatarsal of the right first digit. The varus deformity appears to have been corrected and the bones are in anatomic alignment. Procedure Note Mason Vázquez MD - 08/08/2010 Exam: Portable Right foot one view Date: August 07 2010 at approximately 1016 hours Comparison: August 01 2010 Findings: A wire traverses phalanges and distal metatarsal of the right first digit. The varus deformity appears to have been corrected and the bones are in anatomic alignment. IMPRESSION Internally stabilized and corrected hallux varus deformity. D: Yunior Benjamin M.D. Iwona Sarmiento MD DIAGNOSTIC IMAGING O GABRIELA * STREP A SCREEN I (11/02/2008 10:50 AM UNDERWEAR WELTER) Result NONE DETECTED [facility] Comment: Test Performed at: [email or web address] [address] [place] [address] ??[id number] ROSS JORDAN MD 11/02/2008 10:5 0 AM UNDERWEAR WELTER 11/02/2008 7:28 PM UNDERWEAR WELTER Saundra Hutchinson MD LAB - MICROBIOLOGY O [place] [address] [place] [address] * GROSS + MICRO EXAM (06/23/2002 9:00 AM CDT) Result CASE NUMBER [id number] [facility] LAB PATH REPORT Comment: ORDERING PHYSICIAN ??Luis E WATTS SPECIMEN TYPE ?Tongue-Lesion CLINICAL HISTORY ? The patient is a 6-month-old girl with 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 GROSS DESCRIPTION ? The specimens are received fresh in four containers for gross and microscopic examination. In the first container, labeled A, tongue lesion , is a 1.3 x 0.6 x 0.6 cm fragment of pink-singh tongue mucosa and underlying pink-white soft tissue. ??A 4 mm in diameter raised papule is identified at one margin of the specimen. ??The specimen is bisected and entirely submitted in cassette A . In the next container, labeled B, left hand digit polydactyly , is a 2.5 x 1.0 x 0.5 cm digit. ??The skin surface is pink-singh and grossly unremarkable. ??There is an unremarkable nail present. ??The underlying soft tissue, cartilaginous, and bony structures are grossly unremarkable. ??The specimen is submitted for decalcification prior to paraffin sectioning. ??After decalcification, a patient service representative section is submitted in cassette B . In the next container, labeled C, right great toe polydactyly , is a 2.0 x 1.0 x 0.6 cm portion of a digit. ??The skin surface is wrinkled yellow-white and there is a portion of an unremarkable nail present. ?? The underlying soft tissue, bony, and cartilaginous structures are grossly unremarkable. ??The specimen is submitted for decalcification prior to paraffin sectioning. ??After decalcification, a patient service representative section is submitted in cassette C . In the next container, labeled D, left great toe polydactyly , is a 3.0 x 1.3 x 0.4 cm portion of a digit. ??The skin surface is yellow- white and wrinkled. ??There is a portion of an unremarkable nail present. ??The underlying soft tissue, bony, and cartilaginous structures are grossly unremarkable. ?? Also submitted in the same container is a 0.5 x 0.4 x 0.1 cm fragment of white cartilage and bone. ??The specimens are submitted for decalcification prior to paraffin sectioning. ??After decalcification, a patient service representative section is submitted in cassette D . ??(CT/amc/lw) ? MICROSCOPIC DESCRIPTION ? (5 H/E) Sections of the tongue show squamous stratified non-keratinizing epithelium and salivary glands embedded in adipose tissue with fibrous connective tissue septi, and small smooth muscle bundles. Sections of the left hand digit, polydactyly, show all of the normal components of a normal accessory digit, namely skin and adipose tissue, bones with hyaline cartilage containing a growth plate and hypoplastic bone marrow. Sections of the right and left great toe polydactyly show components similar to the ones already described above. ??(CSA/lw) DIAGNOSIS ? DIAGNOSIS ??A) TONGUE LESION ?- HAMARTOMA OF THE TONGUE (BENIGN). ? B) LEFT HAND DIGIT POLYDACTYLY. ? C) RIGHT GREAT TOE POLYDACTYLY. ? D) LEFT GREAT TOE POLYDACTYLY. This case has been personally reviewed and interpreted by the attending (teaching) pathologist. Stripper Shovel Operator ? JR FENTON PATHOLOGIST ?Jonathan Rosa M.D. ELECTRONICALLY JAGRUTI Jonathan Rosa MISCELLANEOUS SAMPLES / Unknown 06/23/2002 9:00 AM CDT 06/23/2002 11:19 AM CDT Historical Provider LAB - PATHOLOGY/C YTOLOGY ORDERABLES [facility] PATH REPORT Care Teams Fruit Tester Relationship Specialty Start Date End Date Meche Veras, DO [address] [place] [id number] (work) PCP - General Pediatrics 07/20/20
--- OUTSIDE RECORDS SUMMARY | 2024-10-21 16:18 | XMS_ITS | Data Portability ---
Author Organization [place] - [employer], Main Office Address [address] [place] [address] Care Team Providers Care Bone Char Operator Name Role Phone TUCKER WONG Primary Care Provider Assessment Encounter Date Assessment Date Assessment LastModified by Organization Details LastModified Time 02/21/2023 02/21/2023 D/w pt about her findings and further plan of care. Explained about different options for this. Samples given to pt. Meds as directed. OTC Zyrtec/Tiana/C laritin po daily prn. Very good liquid intake explained. Educated pt about alarming symptoms to monitor at home and call us back or get checked in ED in that case. Pt verbalized understanding it. Cont f/u with Ophtho as directed. F/u here as directed. [email or web address] Not available 02/21/2023 12:19:51 09/11/2023 09/11/2023 22 yo F with - WELL ADULT VISIT - HEMATURIA, microscopic; ? Contamination - UNDERWEIGHT - MIGRAINE - ALLERGIC RHINITIS - VIT D DEFICIENCY - VIT B12 DEFICIENCY - MULTIPLE MOLES - H/O MULTIPLE JAW SURGERIES Annual labs: 10/02/22. Annual labs: 07/21/21. D/w pt in detail about her findings, recent labs and further plan of care. Will do routine labs. Will refer pt to Endo again. Meds as directed. Diet and exercise explained. Safe sex education given. Cont f/u with Endo as per schedule. Cont f/u with Kiln Stoker at [facility] as per schedule. Cont f/u with Oral surgeon as per schedule. Cont f/u with Gyne as per schedule. Cont f/u with Derm at [facility] as per schedule. HM: WWE - 7/21/23, normal as per pt. Cont f/u with Gyne as per schedule. Flu - Pt declined. Tdap - 10/18/22. Gardasil - Pt had 2 doses done in the past, 10/18/22. F/u in 2-3 weeks. Annual visit in 09/15. [email or web address] Not available 09/11/2023 14:24:39 Plan of Treatment Reminders Order Date Submit Date Provider Last Modified By Organization Details Last Modified Time Details Appointments None recorded. Lab pap, IG + CT/NG + reflex HPV 2022 023 [email or web address] [facility], [address] [place], [address], 07:55:28 CBC w/ auto diff 2022 023 [place], [address], [place], [address], 14:23:08 CMP, serum or plasma 2022 023 [facility], [address], [place], [address], 15:19:38 lipid panel, serum 2022 023 [place], [address], [place], [address], 15:19:59 TSH, serum, reflex free T4 2022 023 [email or web address] [facility], [address], [place], [address], 09:40:02 urinalysis complete, reflex culture 2022 023 [email or web address] [facility], [address], [place], [address], 09:40:19 vitamin B12 + folate, serum or blood 2022 023 [email or web address] [facility], [address], [place], [address], 3 09:40:37 vitamin D, 25-hydroxy , total, serum 2022 023 [email or web address] [facility], [address], [place], [address], 3 09:40:48 Referral endocrinol ogy referral - Please call patient to schedule an appointmen t. [email or web address] [facility], [address], [address], [place], [address], 4 09:53:30 Procedures None recorded. Surgeries None recorded. Imaging None recorded. Medication Orders famotidine 20 mg tablet 2022 023 [id number], [address] [facility], [place], [place], [id number], 3 12:08:27 Nurtec ODT 75 mg disintegra ting tablet 2022 023 [email or web address] [facility] #[id number], [address], [place], [id number], 3 11:59:26 Ubrelvy 100 mg tablet 2022 023 [facility], [address], [place], [id number], 3 14:15:52 fluticason e propionate 50 mcg/actuat ion nasal spray,susp ension 2022 023 [facility] #50327, [address], [place], [id number], 3 14:15:38 cetirizine 10 mg tablet 2022 023 [facility] #[id number], [address], [place], [place], [id number], 14:16:02 Patient TargetsNo targets recorded. Patient Instructions Encounter Date Encounter Id Patient Instructions Last Modified By Organization Details Last Modified Time 04/12/2023 [id number] FU annually for WWE after 04/13/24 [email or web address] Not available 04/12/2023 12:30:00 Reason for Referral Endocrinology Referral for U nderweight Please call patient to schedule an appointment. Referring Physician: Tucker Wong, Family Medicine, Encounter Date: 09/11/2023 Results Created Date Observation Date Name Description Value Unit Range Abnormal Flag Note LastModifiedBy Organization Detail LastModifiedTime 10/18/19 23 10/18/2022 URINA LYSIS COMPL ETE, IRIS color yellow Not Available [facility] (Lab) [address] [place], [address], 10/18/2022 20:54:13 10/18/19 23 10/18/2022 URINA LYSIS COMPL ETE, IRIS appear extra turbid abnormal Not Available [facility] (Lab) [address] [place], [address], 10/18/2022 20:54:13 10/18/19 23 10/18/2022 URINA LYSIS COMPL ETE, IRIS specific gravity 1.024 1.001- 1.030 Not Available [facility] (Lab) [address] [place], [address], 10/18/2022 20:54:13 10/18/19 23 10/18/2022 URINA LYSIS COMPL ETE, IRIS pH 6.0 pH_un its 5.0-9. 0 Not Available [facility] (Lab) [address] [place], [address], 10/18/2022 20:54:13 10/18/19 23 10/18/2022 URINA LYSIS COMPL ETE, IRIS leukocytes negati ve fabian/u L negati ve- Not Available [facility] (Lab) [address] [place], [address], 10/18/2022 20:54:13 10/18/19 23 10/18/2022 URINA LYSIS COMPL ETE, IRIS nitrite negati ve negati ve- Not Available [facility] (Lab) [address] [place], [address], 10/18/2022 20:54:13 10/18/19 23 10/18/2022 URINA LYSIS COMPL ETE, IRIS protein negati ve mg/dL negati ve- Not Available [facility] (Lab) [address] [place], [address], 10/18/2022 20:54:13 10/18/19 23 10/18/2022 URINA LYSIS COMPL ETE, IRIS glucose normal mg/dL normal - Not Available [facility] (Lab) [address] [place], [address], 10/18/2022 20:54:13 10/18/19 23 10/18/2022 URINA LYSIS COMPL ETE, IRIS ketones negati ve mg/dL negati ve- Not Available [facility] (Lab) [address] [place], [address], 10/18/2022 20:54:13 10/18/19 23 10/18/2022 URINA LYSIS COMPL ETE, IRIS urobilinogen normal mg/dL normal - Not Available [facility] (Lab) [address] [place], [address], 10/18/2022 20:54:13 10/18/19 23 10/18/2022 URINA LYSIS COMPL ETE, IRIS bilirubin negati ve mg/dL negati ve- Not Available [facility] (Lab) [address] [place], [address], 10/18/2022 20:54:13 10/18/19 23 10/18/2022 URINA LYSIS COMPL ETE, IRIS blood >/=1.0 mg/dL negati ve- abnormal Not Available [facility] (Lab) [address] [place], [address], 10/18/2022 20:54:13 10/18/19 23 10/18/2022 URINA LYSIS COMPL ETE, IRIS white blood cells 0-8 /i??h pfi?? 0-8 Not Available [facility] (Lab) [address] [place], [address], 10/18/2022 20:54:13 10/18/19 23 10/18/2022 URINA LYSIS COMPL ETE, IRIS red blood cells 11-20 /i??h pfi?? 0-4 abnormal Not Available [facility] (Lab) [address] [place], [address], 10/18/2022 20:54:13 10/18/19 23 10/18/2022 URINA LYSIS COMPL ETE, IRIS bacteria occasi onal abnormal Not Available [facility] (Lab) [address] [place], [address], 10/18/2022 20:54:13 10/18/19 23 10/18/2022 URINA LYSIS COMPL ETE, IRIS mucous occasi onal /i??l pfi?? abnormal Not Available [facility] (Lab) [address] [place], [address], 10/18/2022 20:54:13 10/18/1910/18/2022 URINA LYSIS COMPL ETE, IRIS squamous epithelial modera te /i??l pfi?? abnormal Not Available [facility] (Lab) [address] [place], [address], 10/18/2022 20:54:13 10/18/19 23 10/18/2022 URINA LYSIS COMPL ETE, IRIS calcium oxalate crystal occasi onal /i??h pfi?? none seen- abnormal Not Available [facility] (Lab) [address] [place], [address], 10/18/2022 20:54:13 10/18/19 23 10/18/2022 URINA LYSIS COMPL ETE, IRIS amorphous crystal occasi onal /i??h pfi?? abnormal Not Available [facility] (Lab) [address] [place], [address], 10/18/2022 20:54:13 04/12/20 23 04/17/2023 PAP THINP REP, REFLE X HPV diagnosis: ANTHONY KEBEDE FOR INTRA EPITH ELIAL ALEXYS N OR ANDRES RUGGIERO . Not Available [facility] (Lab) [address] [place], [address], 04/17/2023 14:17:38 04/12/20 23 04/17/2023 PAP THINP REP, REFLE X HPV specimen adequacy: ANTHONY Kilpatrick Satis facto akil for evalu ation . Endoc ervic al and/o r squam ous m etapl astic cells (endo cervi lynette compo nent) are prese nt. Areas of parti ally obscu ring infla mmato ry exuda te are prese n t. Not Available [facility] (Lab) [address] [place], [address], 04/17/2023 14:17:38 04/12/20 23 04/17/2023 PAP THINP REP, REFLE X HPV performed by: ANTHONY horn, Cytot echluz marina logis t (ASCP ) Not Available [facility] (Lab) [address] [place], [address], 04/17/2023 14:17:38 04/12/20 23 04/17/2023 PAP THINP REP, REFLE X HPV . . Not Available [facility] (Lab) [address] [place], [address], 04/17/2023 14:17:38 04/12/20 23 04/17/2023 PAP THINP REP, REFLE X HPV note: COMMEN T The Pap smear is a scree sara test desig robe to aid in the detec tion of milka ligna nt and malig nant condi tions of the uteri ne cervi x. It is not a diagn ostic proce dure and shoul d not be used as the sole means of detec ting cervi lynette cance r. Both false -posi tive and false -nega tive repor ts do occur . . Not Available [facility] (Lab) [address] [place], [address], 04/17/2023 14:17:38 04/12/20 23 04/17/2023 PAP THINP REP, REFLE X HPV test methodology: COMMEN T This liqui d based ThinP rep(R ) pap test was scree robe with the use of an image guide d syste m. Not Available [facility] (Lab) [address] [place], [address], 04/17/2023 14:17:38 04/12/20 23 04/17/2023 PAP THINP REP, REFLE X HPV . COMMEN T The HPV DNA refle x crite ligia were not met with this speci men resul t there fore, no HPV testi ng was perfo rmed. . Perfo rmed at: [facility] [place] [address] , [place] [address] Lab Direc tor: Monserrat cochran MD, Phone : [phone] Not Available [facility] (Lab) [address] [place], [address], 04/17/2023 14:17:38 09/13/20 23 09/13/2023 CBC/C OMPLE TE BLD COUNT W/DIF F white blood cells 6.9 x10'3 /uL 4.2-10 .8 Not Available [facility] (Lab) [address] [place], [address], 09/13/2023 14:23:08 09/13/20 23 09/13/2023 CBC/C OMPLE TE BLD COUNT W/DIF F red blood cells 4.86 x10'6 /uL 3.80-5 .20 Not Available [facility] (Lab) [address] [place], [address], 09/13/2023 14:23:08 09/13/20 23 09/13/2023 CBC/C OMPLE TE BLD COUNT W/DIF F hemoglobin 14.6 g/dL 12.0-1 5.6 Not Available [facility] (Lab) [address] [place], [address], 09/13/2023 14:23:08 09/13/20 23 09/13/2023 CBC/C OMPLE TE BLD COUNT W/DIF F hematocrit 44.9 % 35.7-4 5.7 Not Available [facility] (Lab) [address] [place], [address], 09/13/2023 14:23:08 09/13/20 23 09/13/2023 CBC/C OMPLE TE BLD COUNT W/DIF F mean red cell volume 92.4 fL 82.0-9 9.0 Not Available [facility] (Lab) [address] [place], [address], 09/13/2023 14:23:08 09/13/20 23 09/13/2023 CBC/C OMPLE TE BLD COUNT W/DIF F mean red cell hemoglobin 30.0 pg 27.0-3 3.0 Not Available [facility] (Lab) [address] [facility] [place] [place], [address], 09/13/2023 14:23:08 12/2209/13/2023 CBC/C OMPLE TE BLD COUNT W/DIF F mean RBC HGB concentratio n 32.5 g/dL 31.0-3 6.0 Not Available [facility] (Lab) [address] [place], [address], 09/13/2023 14:23:08 09/13/20 23 09/13/2023 CBC/C OMPLE TE BLD COUNT W/DIF F red cell distribution width 12.8 % 11.8-1 5.5 Not Available [facility] (Lab) [address] [place], [address], 09/13/2023 14:23:08 09/13/20 23 09/13/2023 CBC/C OMPLE TE BLD COUNT W/DIF F platelets 268 x10'3 /uL 150-40 0 Not Available [facility] (Lab) [address] [place], [address], 09/13/2023 14:23:08 09/13/20 23 09/13/2023 CBC/C OMPLE TE BLD COUNT W/DIF F mean platelet volume 12.9 fL 9.0-12 .4 high Not Available [facility] (Lab) [address] [place], [address], 09/13/2023 14:23:08 09/13/20 23 09/13/2023 CBC/C OMPLE TE BLD COUNT W/DIF F neutrophils 41.3 % 39.0-7 2.0 Not Available [facility] (Lab) [address] [place], [address], 09/13/2023 14:23:08 09/13/20 23 09/13/2023 CBC/C OMPLE TE BLD COUNT W/DIF F lymphocytes 42.5 % 16.0-4 7.0 Not Available [facility] (Lab) [address] [place], [address], 09/13/2023 14:23:08 09/13/20 23 09/13/2023 CBC/C OMPLE TE BLD COUNT W/DIF F monocytes 7.9 % 5.0-12 .0 Not Available [facility] (Lab) [address] [place], [address], 09/13/2023 14:23:08 09/13/20 23 09/13/2023 CBC/C OMPLE TE BLD COUNT W/DIF F eosinophils 7.0 % 1.0-7. 0 Not Available [facility] (Lab) [address] [place], [address], 09/13/2023 14:23:08 09/13/20 23 09/13/2023 CBC/C OMPLE TE BLD COUNT W/DIF F basophils 1.2 % 0.0-2. 0 Not Available [facility] (Lab) [address] [place], [address], 09/13/2023 14:23:08 09/13/20 23 09/13/2023 CBC/C OMPLE TE BLD COUNT W/DIF F immature granulocytes 0.1 % 0.00-0 .50 Not Available [facility] (Lab) [address] [place], [address], 09/13/2023 14:23:08 09/13/20 23 09/13/2023 CBC/C OMPLE TE BLD COUNT W/DIF F neutrophils, absolute count 2.83 x10'3 /uL 1.5-8. 0 Not Available [facility] (Lab) [address] [place], [address], 09/13/2023 14:23:08 09/13/20 23 09/13/2023 CBC/C OMPLE TE BLD COUNT W/DIF F lymphocytes, absolute count 2.91 x10'3 /uL 1.07-3 .43 Not Available [facility] (Lab) [address] [place], [address], 09/13/2023 14:23:08 09/13/20 23 09/13/2023 CBC/C OMPLE TE BLD COUNT W/DIF F monocytes, absolute count 0.54 x10'3 /uL 0.29-0 .99 Not Available [facility] (Lab) [address] [place], [address], 09/13/2023 14:23:08 09/13/20 23 09/13/2023 CBC/C OMPLE TE BLD COUNT W/DIF F eosinophils, absolute count 0.48 x10'3 /uL 0.02-0 .53 Not Available [facility] (Lab) [address] [place], [address], 09/13/2023 14:23:08 09/13/20 23 09/13/2023 CBC/C OMPLE TE BLD COUNT W/DIF F basophils, absolute count 0.08 x10'3 /uL 0.01-0 .08 Not Available [facility] (Lab) [address] [place], [address], 09/13/2023 14:23:08 09/13/20 23 09/13/2023 CBC/C OMPLE TE BLD COUNT W/DIF F immature granulocytes ,absolute 0.01 x10'3 /uL 0.00-0 .05 Not Available [facility] (Lab) [address] [place], [address], 09/13/2023 14:23:08 09/13/20 23 09/13/2023 CBC/C OMPLE TE BLD COUNT W/DIF F nucleated red blood cells 0.0 % -0 Not Available [facility] (Lab) [address] [place], [address], 09/13/2023 14:23:08 09/13/20 23 09/13/2023 CBC/C OMPLE TE BLD COUNT W/DIF F NRBC# 0.00 x10'3 /uL Not Available [facility] (Lab) [address] [place], [address], 09/13/2023 14:23:08 09/13/20 23 09/13/2023 URINA LYSIS COMPL ETE/I RIS W/RFX color YELLOW Not Available [facility] (Lab) [address] [place], [address], 09/13/2023 14:40:50 09/13/20 23 09/13/2023 URINA LYSIS COMPL ETE/I RIS W/RFX appear EXTRA TURBID abnormal Not Available [facility] (Lab) [address] [place], [address], 09/13/2023 14:40:50 09/13/20 23 09/13/2023 URINA LYSIS COMPL ETE/I RIS W/RFX specific gravity 1.019 1.001- 1.030 Not Available [facility] (Lab) [address] [place], [address], 09/13/2023 14:40:50 09/13/20 23 09/13/2023 URINA LYSIS COMPL ETE/I RIS W/RFX pH 6.0 pH_un its 5.0-9. 0 Not Available [facility] (Lab) [address] [place], [address], 09/13/2023 14:40:50 09/13/20 23 09/13/2023 URINA LYSIS COMPL ETE/I RIS W/RFX leukocytes 75 fabian/u L negati ve- abnormal Not Available [facility] (Lab) [address] [place], [address], 09/13/2023 14:40:50 09/13/20 23 09/13/2023 URINA LYSIS COMPL ETE/I RIS W/RFX nitrite NEGATI VE negati ve- Not Available [facility] (Lab) [address] [place], [address], 09/13/2023 14:40:50 09/13/20 23 09/13/2023 URINA LYSIS COMPL ETE/I RIS W/RFX protein 70 mg/dL negati ve- abnormal Not Available [facility] (Lab) [address] [place], [address], 09/13/2023 14:40:50 09/13/20 23 09/13/2023 URINA LYSIS COMPL ETE/I RIS W/RFX glucose NORMAL mg/dL normal - Not Available [facility] (Lab) [address] [place], [address], 09/13/2023 14:40:50 09/13/20 23 09/13/2023 URINA LYSIS COMPL ETE/I RIS W/RFX ketones NEGATI VE mg/dL negati ve- Not Available [facility] (Lab) [address] [place], [address], 09/13/2023 14:40:50 09/13/20 23 09/13/2023 URINA LYSIS COMPL ETE/I RIS W/RFX urobilinogen NORMAL mg/dL normal - Not Available [facility] (Lab) [address] [place], [address], 09/13/2023 14:40:50 09/13/20 23 09/13/2023 URINA LYSIS COMPL ETE/I RIS W/RFX bilirubin NEGATI VE mg/dL negati ve- Not Available [facility] (Lab) [address] [place], [address], 09/13/2023 14:40:50 09/13/20 23 09/13/2023 URINA LYSIS COMPL ETE/I RIS W/RFX blood NEGATI VE mg/dL negati ve- Not Available [facility] (Lab) [address] [place], [address], 09/13/2023 14:40:50 09/13/20 23 09/13/2023 URINA LYSIS COMPL ETE/I RIS W/RFX white blood cells 0-8 /i??h pfi?? 0-8 Not Available [facility] (Lab) [address] [place], [address], 09/13/2023 14:40:50 09/13/20 23 09/13/2023 URINA LYSIS COMPL ETE/I RIS W/RFX red blood cells 0-4 /i??h pfi?? 0-4 Not Available [facility] (Lab) [address] [place], [address], 09/13/2023 14:40:50 09/13/20 23 09/13/2023 URINA LYSIS COMPL ETE/I RIS W/RFX bacteria FEW abnormal Not Available [facility] (Lab) [address] [facility], [address], 09/13/2023 14:40:50 09/13/20 23 09/13/2023 URINA LYSIS COMPL ETE/I RIS W/RFX mucous MANY /i??l pfi?? abnormal Not Available [facility] (Lab) [address] [place], [address], 09/13/2023 14:40:50 09/13/20 23 09/13/2023 URINA LYSIS COMPL ETE/I RIS W/RFX squamous epithelial PACKED FIELD /i??l pfi?? abnormal Not Available [facility] (Lab) [address] [place], [address], 09/13/2023 14:40:50 09/13/20 23 09/13/2023 URINA LYSIS COMPL ETE/I RIS W/RFX hyaline cast MODERA TE /i??l pfi?? none seen- abnormal Not Available [facility] (Lab) [address] [place], [address], 09/13/2023 14:40:50 09/13/20 23 09/13/2023 TSH W/REF KAILEY FT4 TSH with reflex free T4 2.010 uIU/m L 0.465- 4.680 Not Available [facility] (Lab) [address] [place], [address], 09/13/2023 15:19:28 09/13/20 23 09/13/2023 COMPR EHENS DELIO METAB OLIC PANEL sodium 139 mmol/ L 137-14 5 Not Available [facility] (Lab) [address] [place], [address], 09/13/2023 15:19:54 09/13/20 23 09/13/2023 COMPR EHENS DELIO METAB OLIC PANEL potassium 4.1 mmol/ L 3.5-5. 1 Not Available [facility] (Lab) [address] [place], [address], 09/13/2023 15:19:54 09/13/20 23 09/13/2023 COMPR EHENS DELIO METAB OLIC PANEL chloride 105 mmol/ L 98-107 Not Available [facility] (Lab) [address] [place], [address], 09/13/2023 15:19:54 09/13/20 23 09/13/2023 COMPR EHENS DELIO METAB OLIC PANEL carbon dioxide 26 mmol/ L 22-30 Not Available [facility] (Lab) [address] [place], [address], 09/13/2023 15:19:54 09/13/20 23 09/13/2023 COMPR EHENS DELIO METAB OLIC PANEL anion gap 12.1 mmol/ L 14-22 low Not Available [facility] (Lab) [address] [place], [address], 09/13/2023 15:19:54 09/13/20 23 09/13/2023 COMPR EHENS DELIO METAB OLIC PANEL glucose 87 mg/dL 70-99 Not Available [facility] (Lab) [address] [facility] [place], [address], 09/13/2023 15:19:54 09/13/20 23 09/13/2023 COMPR EHENS DELIO METAB OLIC PANEL BUN 10 mg/dL 8-19 Not Available [facility] (Lab) [address] [facility] [place], [address], 09/13/2023 15:19:54 09/13/20 23 09/13/2023 COMPR EHENS DELIO METAB OLIC PANEL creatinine 0.66 mg/dL 0.66-1 .25 Not Available [facility] (Lab) [address] [facility] [place], [address], 09/13/2023 15:19:54 09/13/20 23 09/13/2023 COMPR EHENS DELIO METAB OLIC PANEL GFR >60 Refer ence Range : [place] ge GFR Healt hy Adult : >60 mL/mi n/1.7 3 m2 Chron ic Kidne y Disea se: 15-60 mL/mi n/1.7 3 m2 Kidne y Failu re: <15/m L/min /1.73 m2 www.n iddk. nih.g ov The MDRD study equat ion has not been valid ated in child darryn <18 years of age; pregn ant women ; the elder ly >85 years of age; or in some racia l or ethni c subgr oups, such as [facility] nics. Outsi de the valid ated robin eters , estim ated GFR is less accur ate, requi ring clini lynette judgm ent on a case- by-ca se basis . Clini lynette inter preta tion for other races and ages must be made by the clini mikel. The MDRD study equat ion has not been valid ated for the evalu ation of serum creat inine relat ed to nutri alma l statu s or medic ation usage . For perso ns <18 years of age, a pedia tric GFR calcu lator is avail able on the [facility] websi te: https ://kashif sena.fiona urbina.o rg/pr ofess ional s/kdo qi/gf r_cal culat or Not Available [facility] (Lab) [address] [place], [address], 09/13/2023 15:19:54 09/13/20 23 09/13/2023 COMPR EHENS DELIO METAB OLIC PANEL alkaline phosphatase 62 U/L 38-126 Not Available [facility] (Lab) [address] [place], [address], 09/13/2023 15:19:54 09/13/20 23 09/13/2023 COMPR EHENS DELIO METAB OLIC PANEL alanine aminotransfe rase 12 U/L 0-35 Not Available [facility] (Lab) [address] [place], [address], 09/13/2023 15:19:54 09/13/20 23 09/13/2023 COMPR EHENS DELIO METAB OLIC PANEL aspartate aminotransfe rase 23 U/L 15-37 Not Available [facility] (Lab) [address] [place], [address], 09/13/2023 15:19:54 09/13/20 23 09/13/2023 COMPR EHENS DELIO METAB OLIC PANEL bilirubin, total 0.70 mg/dL 0.20-1 .30 Not Available [facility] (Lab) [address] [place], [address], 09/13/2023 15:19:54 09/13/20 23 09/13/2023 COMPR EHENS DELIO METAB OLIC PANEL calcium 10.1 mg/dL 8.4-10 .2 Not Available [facility] (Lab) [address] [place], [address], 09/13/2023 15:19:54 09/13/20 23 09/13/2023 COMPR EHENS DELIO METAB OLIC PANEL total protein 7.1 g/dL 6.3-8. 2 Not Available [facility] (Lab) [address] [place], [address], 09/13/2023 15:19:54 09/13/20 23 09/13/2023 COMPR EHENS DELIO METAB OLIC PANEL albumin 4.7 g/dL 3.4-5. 0 Not Available [facility] (Lab) [address] [place], [address], 09/13/2023 15:19:54 09/13/20 23 09/13/2023 COMPR EHENS DELIO METAB OLIC PANEL globulin 2.4 g/dL 2.6-4. 2 low Not Available [facility] (Lab) [address] [place], [address], 09/13/2023 15:19:54 09/13/20 23 09/13/2023 COMPR EHENS DELIO METAB OLIC PANEL A/G ratio 2.0 ratio 1.0-2. 0 Not Available [facility] (Lab) [address] [place], [address], 09/13/2023 15:19:54 09/13/20 23 09/13/2023 LIPID PANEL cholesterol 149 mg/dL 140-19 9 [facility] NSUS RECOM MENDA TION FOR INNA STERO L: ADULT CHILD LOW RISK: <200 <170 BORDE RLINE : <200- 239 ----- HIGH RISK: >240 >200 Not Available [facility] (Lab) [address] [place], [address], 09/13/2023 15:19:59 09/13/20 23 09/13/2023 LIPID PANEL triglyceride s 52 mg/dL 0-150 [facility] NSUS REPOR T RECOM MENDA TION FOR TRIGL YCERI ISACC: ADULT CHILD LOW RISK: <150 ----- BODER LINE: 150-1 99 ----- HIGH RISK: >200 ----- Not Available [facility] (Lab) [address] [place], [address], 09/13/2023 15:19:59 09/13/20 23 09/13/2023 LIPID PANEL HDL cholesterol 75 mg/dL 40- Not Available [facility] (Lab) [address] [place], [address], 09/13/2023 15:19:59 09/13/20 23 09/13/2023 LIPID PANEL LDL cholesterol, calculated 64 mg/dL 0-130 [facility] NSUS REPOR T RECOM MENDA TIONS FOR LDL: ADULT CHILD LOW RISK <130 <110 (OPTI MAL LDL) <100 ----- BORDE RLINE : 130-1 59 ----- HIGH RISK: >160 >130 A TRIGL YCERI DE RESUL T >400 INVAL IDATE S THE CALCU LATIO N FOR LDL FRACT IONAT ION - THE LDL RESUL T WILL NOT BE REPOR CHARLIE. Not Available [facility] (Lab) [address] [place], [address], 09/13/2023 15:19:59 09/13/20 23 09/13/2023 VITAM IN D 25-HY DROXY vd25oh 18.6 NG/mL 30-100 low Vitam in D Statu s: Defic ient: <20 ng/mL Insuf ficie nt: 20-29 ng/mL Suffi cient : 30-10 0 ng/mL Not Available [facility] (Lab) [address] [place], [address], 09/13/2023 17:11:21 09/13/20 23 09/13/2023 VITAM IN B12 (FLORINDA QUAN ) vb12 311 pg/mL 239-93 1 Not Available [facility] (Lab) [address] [place], [address], 09/13/2023 17:34:41 Result Notes None recorded. Problems Name Problem SNOMED Code Status Onset Date Resolution Date Notes Provider Name and Address Organization Details Recorded Time Folliculitis 91918779 Active 2021 Not Available [employer] 23:57:12 Microscopic hematuria 598352838 Active 2022 Not Available [facility] 3 23:57:13 Underweight 923733004 Active 2020 Not Available [facility] 3 23:57:13 Vitamin D deficiency 74524473 Active 2020 Not Available [facility] 3 23:57:13 Seasonal allergic rhinitis 174863353 Active 2020 Not Available [facility] 3 23:57:13 Disorder of jaw 22080569 Active 2021 Not Available [facility] 3 23:57:13 Multiple benign melanocytic nevi 794015229 Active 2021 Not Available [facility] 3 23:57:13 Education about sexually transmitted disease prevention Active 2021 Not Available [facility] 3 23:57:13 Vitamin B12 deficiency (non anemic) 54027180 Active 2020 Not Available [facility] 3 23:57:13 Viral gastroenterit is 088509187 Active 2022 Tucker Wong MD [address], [place], [address] , [facility] [employer] 3 12:07:26 Gastroesophag eal reflux disease without esophagitis 297266093 Active 2022 Tucker Wong MD [address], [place], [address] , [facility] [employer] [facility] 3 12:07:32 Migraine without aura 64702864 Active 2022 Tucker Wong MD [address] [place] [address], [place], [address] , [facility] [employer] [facility] 3 12:09:04 Decrease in appetite 08409350 Active 2022 Tucker Wong MD [address], [place], [address] , [facility] [employer] [facility] 3 12:19:35 Problem Notes None recorded. Procedures Surgical History Date Name Laterality Status Provider Name and Address Organization Details Recorded Time 3 Date of Last Pap Smear completed Teresita Goode, ROBE [address], [place], [address], [facility] [employer] 04/17/2023 17:34:47 2 Jaw arthroscopy/edmonds rgery completed Not Available [facility] 11/21/2022 23:56:25 procedure on tongue completed Not Available [facility] 11/21/2022 23:56:25 Toe completed Not Available [facility] 09/2022 23:56:25 Imaging Results None recorded. Procedure Notes None recorded. Medical Equipment None Reported. Allergies No known drug allergies Medications Name Sig Start Date Stop Date Status Note LastModified by Organization Details LastModified Time BD Luer-Chan Syringe 3 mL 25 x 5/8 USE ONCE WEEKLY DIRECTED 09/06 completed Not Available Not Available Not Available cetirizine 10 mg tablet TAKE 1 TABLET BY MOUTH EVERY DAY active Not Available Not Available No t Available Lidocaine Viscous 2 % mucosal solution GARGLE AND SPIT 5 ML BY MOUTH TO AFFECTED MUCOSAL AREA FOUR TIMES DAILY NEEDED FOR PAIN 09/06 completed Not Available Not Available Not Available oxycodone 5 mg/5 mL oral solution 03/06 completed Not Available Not Available Not Available sulfametho xazole 800 mg-trimeth oprim 160 mg tablet TAKE 1 TABLET BY MOUTH EVERY 12 HOURS FOR 7 DAYS DIRECTED 10/18 completed Not Available Not Available Not Available ondansetro n 8 mg disintegra ting tablet DISSOLVE 1 TABLET ON THE TONGUE EVERY 8 HOURS NEEDED FOR NAUSEA OR VOMITING 09/06 completed Not Available Not Available Not Available amoxicilli n 875 mg tablet TAKE 1 TABLET BY MOUTH EVERY 12 HOURS 09/11 completed Not Available Not Available Not Available famotidine 20 mg tablet Take 1 tablet twice a day by oral route as directed for 30 days. 2022 active Not Available Not Available Not Avai lable nortriptyl ine 10 mg capsule TAKE 2 CAPSULES BY MOUTH AT BEDTIME active Not Available Not Available No t Available cyanocobal ladnrum (vit B-12) 1,000 mcg/mL injection solution 09/06 completed Not Available Not Available Not Available nitrofuran toin macrocryst al 100 mg capsule TAKE 1 CAPSULE BY MOUTH NEEDED 02/21 completed Not Available Not Available Not Available ergocalcif lianne (vitamin D2) 1,250 mcg (50,000 unit) capsule TAKE 1 CAPSULE BY MOUTH EVERY WEEK DIRECTED 02/21 completed Not Available Not Available Not Available fluticason e propionate 50 mcg/actuat ion nasal spray,susp ension SHAKE LIQUID AND USE 2 SPRAYS IN EACH NOSTRIL EVERY DAY NEEDED 2022 active Not Available Not Available Not Avai lable Zyrtec active Not Available Not Availa ble Not Available Ubrelvy 100 mg tablet TAKE 1 TABLET BY MOUTH NEEDED DIRECTED active Not Available Not Available No t Available Nurtec ODT 75 mg disintegra ting tablet Take by oral route for 30 days. 04/12 completed PA Denied on 02/25/23 Not Available Not Available Not Available Vitals Date Recorded Body mass index (BMI) Body height Oxygen saturation Oxygen saturation in Arterial blood by Pulse oximetry Heart rate Body temperature Body weight Systolic blood pressure Diastolic blood pressure Provider Name and Address Organization Details Last Updated DateTime 3 19 kg/m2 157.48 cm 99 % 99 % 75 /min 98.1 [degF] 71450.6 1 g 131 mm[Hg] 62 mm[Hg] Not Available [employer] 3 23:57:03 Date Recorded Body height Body mass index (BMI) Body weight Respiratory rate Heart rate Body temperature Oxygen saturation Oxygen saturation in Arterial blood by Pulse oximetry Systolic blood pressure Diastolic blood pressure Provider Name and Address Organization Details Last Updated DateTime 3 157.48 cm 18.3 kg/m2 77212.2 4 g 16 /min 82 /min 97.9 [degF] 99 % 99 % 114 mm[Hg] 70 mm[Hg] Reina Bull RN [place] - [facility] [employer] [facility] 3 12:02:42 Date Recorded Body height Body mass index (BMI) Body weight Body temperature Heart rate Oxygen saturation Oxygen saturation in Arterial blood by Pulse oximetry Respiratory rate Systolic blood pressure Diastolic blood pressure Provider Name and Address Organization Details Last Updated DateTime 3 157.48 cm 18.5 kg/m2 42101.2 3 g 96.5 [degF] 84 /min 99 % 99 % 16 /min 112 mm[Hg] 78 mm[Hg] Teresita Nam RN [place] - [facility] [employer] [facility] 3 12:01:57 Date Recorded Body height Body mass index (BMI) Body weight Body temperature Heart rate Respiratory rate Oxygen saturation Oxygen saturation in Arterial blood by Pulse oximetry Systolic blood pressure Diastolic blood pressure Provider Name and Address Organization Details Last Updated DateTime 3 157.48 cm 17.4 kg/m2 83664.6 3 g 97.2 [degF] 82 /min 16 /min 99 % 99 % 108 mm[Hg] 70 mm[Hg] Nick Payne [place] - [facility] [employer] [facility] 3 14:05:47 Social History Question Answer Notes LastModified by Organizat ion Details LastModified Time Tobacco Smoking Status Never Smoker Not Available [employer] 11/21/2022 23:56:15 Do You Have An Advance Directive? No [id number].[id number] Information not available 11/21/2022 What Is Your Level Of Alcohol Consumption? Occasional MIGRATION.[id number] Information not available 11/21/2022 Do You Wear A Helmet When Biking? No MIGRATION.864761 7232 Information not available 11/21/2022 What Is Your Level Of Caffeine Consumption? Heavy MIGRATION.681475 3363 Information not available 11/21/2022 In The 14 Days Before Symptom Onset, Have You Had Close Contact With A Laboratory-confir med COVID-19 While That Case Was Ill? No MIGRATION.[id number] 9994 Information not available 11/21/2022 In The 14 Days Before Symptom Onset, Have You Had Close Contact With A Person Who Is Under Investigation For COVID-19 While That Person Was Ill? No MIGRATION.284118 3537 Information not available 11/21/2022 What Type Of Diet Are You Following? REGULAR MIGRATION.727170 4948 Information not available 11/21/2022 What Is The Highest Grade Or Level Of School You Have Completed Or The Highest Degree You Have Received? [id number] MIGRATION.797926 9229 Information not available 11/21/2022 What Is Your Occupation? [employer] MIGRATION.293485 9528 Information not available 11/21/2022 Have There Been Any Changes To Your Family Or Social Situation? No MIGRATION.537891 0757 Information not available 11/21/2022 Are There Any Guns Present In Your Home? No MIGRATION.489424 9166 Information not available 11/21/2022 Do You Use Insect Repellent Routinely? No MIGRATION.702992 7646 Information not available 11/21/2022 Do You Have A Medical Power Of Gauge Operator? No MIGRATION.052939 9942 Information not available 11/21/2022 Have You Ever Been Counseled For Unhealthy Alcohol Use? No MIGRATION.302465 1473 Information not available 11/21/2022 Do You Have Any Pets? Yes MIGRATION.259690 9980 Information not available 11/21/2022 What Is Your Relationship Status? Single MIGRATION.749895 3893 Information not available 11/21/2022 Do You Use Your Seat Belt Or Car Seat Routinely? Yes MIGRATION.971252 4465 Information not available 11/21/2022 Do You Have Smoke And Carbon Monoxide Detectors In Your Home? Yes MIGRATION.780583 6186 Information not available 11/21/2022 Are You Passively Exposed To Smoke? No MIGRATION.857627 5249 Information not available 11/21/2022 Are There Any Smokers In Your House? No MIGRATION.924995 8764 Information not available 11/21/2022 Do You Participate In Social Media? Yes MIGRATION.521077 2621 Information not available 11/21/2022 Do You Feel Stressed (tense, Restless, Nervous, Or Anxious, Or Unable To Sleep At Night)? PM15104-3 [email or web address] Information not available 04/12/2023 Do You Use Any Illicit Or Recreational Drugs? No MIGRATION.209893 7304 Information not available 11/21/2022 Do You Use Sunscreen Routinely? Yes MIGRATION.311136 1427 Information not available 11/21/2022 Has Tobacco Cessation Counseling Been Provided? No MIGRATION.980332 6675 Information not available 11/21/2022 Have You Recently Traveled Abroad? No MIGRATION.323138 9041 Information not available 11/21/2022 Are You Currently In School? Yes MIGRATION.066847 5175 Information not available 11/21/2022 Do You Have Any Dietary Restrictions? No MIGRATION.998565 2508 Information not available 11/21/2022 Do You Or Have You Ever Used Any Other Forms Of Tobacco Or Nicotine? No MIGRATION.720808 2583 Information not available 11/21/2022 Sex: Female Functional Status Question Answer Note LastModified by Organizat ion Details LastModified Time What is your exercise level? None [id number].[id number] Information not available 11/21/2022 Mental Status None recorded. Family History Relationship Description Onset Age of this Age Resolved Age Notes LastModified by Organization Details LastModified Time Mother Diabetes mellitus [id number] Not available 11/21/2022 23:56:27 Unspecified Relation Hypertensive disorder [id number] Not available 11/21/2022 23:56:27 Notes:border line Medical History Condition Response BLINDNESS N CYSTITIS N RHEUMATIC FEVER N BLADDER PROBLEMS N KIDNEY STONES N Enlarged Prostate N MRSA N SLEEP APNEA N INFECTIOUS DISEASE N HEART ARRHYTHMIA N PROSTATE N LUNG DISEASE/DISORDER N INSOMNIA N HISTORY OF DRUG ABUSE N COPD N RADIATION / CHEMOTHERAPY N HIGH CHOLESTEROL / HYPERLIPIDEMIA N HYPERTHYROIDISM N UTI N BLOOD DISEASES N EDEMA N HYPOTHYROIDISM N SHINGLES N BACK / NECK PROBLEMS N BOWEL PROBLEMS N DEPRESSION (INCLUDING POST ) N HAVE YOU BEEN HOSPITALIZED OR SEEN IN [facility] IN THE PAST YEAR ? N STROKE/TIA N THYROID DISEASE N BENIGN PROSTATIC HYPERPLASIA N DIALYSIS N OBESITY N GERD/NAUSEA N ANEURYSM N OSTEOPOROSIS N Increased Urination N URINARY/BLADDER/KIDNEY PROBLEMS N CORONARY ARTERY DISEASE (CAD) N ARTHRITIS N USE OF BLOOD THINNERS N NO SIGNIFICANT PAST MEDICAL HISTORY N DIABETES, TYPE N EMPHYSEMA N GASTROINTESTINAL DISORDER N PARKINSON N GASTROINTESTINAL BLEEDING N BLOOD CLOTS N Difficulty Urinating N ASTHMA N HEPATITIS / LIVER DISEASE N CATARACTS N GOUT N SLEEP DISORDER N ALZHEIMER'S DISEASE N ERECTILE DYSFUNCTION N HERPES N HEADACHES/MIGRAINES N SEIZURES/EPILEPSY N GI PROBLEMS N Low Testosterone N HEART MURMUR N PACEMAKER N DIZZINESS N HEART DISEASE/HEART PROBLEMS N AIDS/HIV N KIDNEY DISEASE N MULTIPLE SCLEROSIS N LIVER DISEASE N MALE HYPOGONADISM N HYPERTENSION N CANCER: SPECIFY N TOURETTE'S N BLOOD TRANSFUSION N ANESTHESIA COMPLICATIONS N ANEMIA/BLOOD DISORDER N ATRIAL FIBRILLATION N AUTOIMMUNE DISEASE N TUBERCULOSIS N GLAUCOMA N Gynecological History Statement/Question Response Flow Moderate Date of LMP 03/19/2022 STIs/STDs N Dislike of Light during Menstrual Headac he N Duration of Flow (days) 7 Most Recent Mammogram Current Control Method None Age at Menarche 16 Breast Problems none Date of Last Colonoscopy Frequency of Cycle (Q days) 7 Most Recent Bone Density Sexually Active? Y Weight gain N Do you get headaches during your period N Menses Monthly Y Date of Last Pap Smear 04/12/2023 Desired Control Method None Discharge yes Obstetrics History GPAL:G 0 P 0 0 0 0 Type Value Multiple Births 0 Full Term 0 Induced 0 Spontaneous 0 Premature 0 Living 0 Ectopics 0 Total 0 Immunizations Vaccine Type Date Status Note Provider Nam e and Address Organization Details Recorded Time COVID-19, mRNA, LNP-S, PF, 100 mcg/0.5mL dose or 50 mcg/0.25mL dose 2 completed Not Available [facility] 11/21/2022 23:58:05 influenza, unspecified formulation 5 completed Not Available [facility] 11/21/2022 23:58:06 influenza, unspecified formulation 3 completed Not Available [facility] 11/21/2022 23:58:06 Hib, unspecified formulation 8 completed Not Available [facility] 11/21/2022 23:58:06 Hep B, adolescent or pediatric 8 completed Not Available [facility] 11/21/2022 23:58:06 DTaP, unspecified formulation 7 completed Not Available [facility] 11/21/2022 23:58:06 Hep A, pediatric, unspecified formulation 7 completed Not Available [facility] 11/21/2022 23:58:06 Hep A, pediatric, unspecified formulation 6 completed Not Available [facility] 11/21/2022 23:58:06 DTaP, unspecified formulation 3 completed Not Available [facility] 11/21/2022 23:58:06 DTaP, unspecified formulation 2 completed Not Available [facility] 11/21/2022 23:58:06 Hib, unspecified formulation 2 completed Not Available [facility] 11/21/2022 23:58:06 Hep B, adolescent or pediatric 2 completed Not Available [facility] 11/21/2022 23:58:06 DTaP, unspecified formulation 2 completed Not Available [facility] 11/21/2022 23:58:06 Hib, unspecified formulation 2 completed Not Available [facility] 11/21/2022 23:58:07 Hep B, adolescent or pediatric 2 completed Not Available [employer] 11/21/2022 23:58:07 DTaP, unspecified formulation 2 completed Not Available [facility] 11/21/2022 23:58:07 HPV9 3 completed Not Available [facility] 11/21/2022 23:58:07 Tdap 3 completed Not Available [facility] 11/21/2022 23:58:07 Past Encounters Encounter ID Performer Location Encounter Start Date Encounter Closed Date Diagnosis/Indication Diagnosis SNOMED-CT Code Diagnosis ICD10 Code Diagnosis Note [id number] [facility] [address] [facility] [place] [address] 07/18/2021 00:00:00 07/18/2021 18:13:23 [id number] [facility] [address] [facility] [place] [address] 07/21/2021 00:00:00 07/21/2021 13:21:57 [id number] [facility] [address] [facility] [place] [address] 08/07/2021 00:00:00 08/07/2021 16:36:01 [id number] [facility] [address] [place] [address] 11/07/2021 00:00:00 11/07/2021 17:42:02 [id number] [facility] [place] [address] [place] [address] 12/19/2021 00:00:00 12/19/2021 21:47:43 [id number] [facility] [address] [facility] [place] [address] 03/06/2022 00:00:00 03/06/2022 17:47:51 [id number] [facility] [address] [facility] [place] [address] 09/06/2022 00:00:00 09/06/2022 14:27:37 [id number] [facility] [address] [facility] [place] [address] 10/02/2022 00:00:00 10/02/2022 10:55:[id number] [address] 10/18/2022 00:00:00 10/18/2022 14:50:[id number] [facility] [address], [address] [place] [address] 11/08/2022 00:00:00 11/08/2022 16:01:23 [id number] Tucker Wong MD [address] [address] 02/21/2023 11:56:48 02/21/2023 12:47:49 Viral gastroenteritis 335170334 A08.4 Gastroesop hageal reflux disease without esophagitis 847894778 K21.9 Migraine without aura 56 353802 G43.009 Decrease in appetite 643 00113 R63.0 [id number] Teresita Goode NP [address] [address] 04/12/2023 11:51:48 04/12/2023 12:36:41 Gynecologic examination 94796719 Z01.419 Encouraged well balanced meals, active lifestyle, and routine vision and dental appts.Disc ussed nuvaring if desired for controllin g periods prior to wedding.Romo d testing for clotting disorders and was negative per patient. [id number] Tuckre Wong MD [address] [address] 09/11/2023 13:54:25 09/11/2023 14:28:22 Adult health examination 503902764 Z00.00 Vitamin B1 2 deficiency (non anemic) 95269802 E53.8 Vitamin D deficiency 347 31129 E55.9 Migraine without aura 56 349596 G43.009 Seasonal a llergic rhinitis 509269674 J30.2 Underweight 258636674 R6 3.6 [id number] Tucker Wong MD [address] [place] [address] 09/13/2023 10:49:33 09/13/2023 11:44:00 Health Concerns Section Related Observation LastModified by Organization Detai ls LastModified Time None Recorded Concern Status LastModified by Organization Details LastModified Time None Recorded Advance Directives Directive N: Payers Encounter Date Sequence Insurance Name Policy Number Policy Parsons Covered Member ID Parsons Member ID Guarantor Name 02/21/2023 1 [facility] [id number] Alex Crain Pace [id number] Elyse Cameron 02/21/2023 2 MED[place]: [facility] PUBLIC AID Elyse Wing [id number] Elyse Cameron 04/12/2023 1 [employer] [id number] Alex Crian Pace [id number] Elyse Cameron 04/12/2023 2 MEDICAID-[place]: [facility] AID Elyse Wing [id number] Elyse Cameron 09/11/2023 1 [employer] [id number] Alex Crain Pace [id number] Elyse Cameron 09/11/2023 2 MEDICAID-[place]: [facility] PUBLIC AID Elyse Wing [id number] Elyse Cameron 09/13/2023 1 [employer] [id number] Alex Crain Pace [id number] Elyse Cameron 09/13/2023 2 MEDICAID-[place]: [facility] Elyse Wing [id number] Elyse Cameron Notes Date Note Type Note Provider Name and Address Organization Details Recorded Time 02/21/2023 text/html ACV: C/o diarrhea and lack of appetite for last 5 days. Pt denies any unusual outside food intake/known sick contact. Since yesterday, he appetite came back and she was able to eat 3 meals and no more diarrhea. C/o migraine that is getting more worse for last few weeks. Pt says now its about 2-3 episodes per week. Pt has tried otc meds for this, but she is not getting better control with it. Last eye exam few months ago. No vision changes/diplopia. No other concerns. Tucker Wong MD [address] [place] [address], [place] [address], [place], [address], [facility] [employer] 02/21/2023 12:20:29 04/12/2023 text/html Here for [employer]. Never had [employer] previously- just turned 22 yo 2022.States she had a pap done > 1 year ago due to mother having abnormal cells. LMP- 03/19/23Contracepti on- noneGetting in June.States mother and aunts had clotting issues on hormones. Teresita Goode NP [address], [address], [place], [address], [employer] 04/12/2023 12:33:47 09/11/2023 text/html Pt is here for h er annual exam. Doing overall well. Denies any concerns.Pt has seen Endo for her unexplained wt loss and she has not gone for the testing with them yet.Pt has chronic jaw problems and had jaw surgery done few times and she lost about 20 lbs due to that. Pt is f/u with oral surgeon for this.Pt has chronic b/l toes inversion and was f/u with Kiln Stoker at and now will be seeing them at [facility]. She will need to have surgery for this in future. Tucker Wong MD [address], [address], [place], [address], [employer] 09/11/2023 14:25:43 OBGyn Episode No OBEpisode recorded.
== END 2024-10-21 16:40 | disposition home or self-care (01) ==
PROVIDERS: Emergency Provider Nurse Practitioner Family; PCP Internal Medicine
DX: R51.9 Headache, unspecified (principal); Z20.822 Contact with and (suspected) exposure to COVID-19
CPT/HCPCS: 87426; 87804; 96372; 99213; A9270; G0463; J1885

== ENCOUNTER 2024-11-30 08:15 | Emergency (ER) | payer OTHER, SELFPAY ==
--- NOTE | 2024-11-30 08:19 | ED.URI ---
HPI - URI/Sore Throat General Chief Complaint: Upper Respiratory Infection Stated Complaint: flu Time Seen by Provider: 11/30/24 08:18 Source: patient Mode of arrival: ambulatory Limitations: no limitations History of Present Illness HPI Narrative: Elyse is a 23-year-old female patient presenting to the clinic today with c/o flu-like symptoms. She reports her symptoms started approximately 2 hours prior to arrival. 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 Had a low-grade temperature, cough, and feeling nauseous. Cough is productive bringing up some green phlegm. Denies any chest pain or shortness of breath. Denies sore throat MD elicited complaint: fever, cough and nasal congestion Related Data Home Medications ?Medication ?Instructions ?Recorded ?Confirmed ?Last Taken ?Type nortriptyline 10 mg capsule 10 mg DIRECTED 08/04/24 08/04/24 Unknown History Allergies Allergy/AdvReac Type Severity Reaction Status Date / Time No Known Allergies Allergy Verified 11/30/24 08:27 Review of Systems Review of Systems: Pertinent positives per HPI. Patient denies any rash, headache, visual changes, dizziness, shortness of breath, chest pain, palpitations, vomiting, diarrhea, constipation, abdominal pain, or any urinary issues. PMFSH Past Medical History Medical History Polydactyly, toes surgery X3 History of sinus problem Seasonal allergies Surgical History Surgical History History of mandibular surgery x2 Social History Social History Smoking status: Never smoker Alcohol intake: current Alcohol use details: rare social Substance use type: does not use Living arrangements: with family Gender identity (if verbalized by the patient): Female Comments At the time of my signature, I reviewed and agree with the nursing past medical, surgical, social, and family history. There is no relevant family history pertinent to the patient complaint. Exam Narrative: General: Well-developed, well nourished, in no apparent distress Head: Normocephalic, atraumatic Eyes: Pupils equally round and reactive to light bilaterally, EOM intact, sclera and conjunctive clear, no discharge, lids normal Ears: TMs intact and clear, ear canals clear, no drainage, grossly hearing normal. Nose: Nares patent, clear discharge, no inflammation, no sinus tenderness. Mouth: Oral pharynx without lesions or masses, good dentition, MMM. Neck: Supple, trachea midline, no enlargement of anterior or posterior cervical nodes, no thyroid masses or goiter palpable. Cardio: Regular rate and rhythm, s1 and s2 normal, no murmur appreciated. Resp: Clear to auscultation bilaterally, no rhonchi, rales, wheezing or rubs Course Course Emergency Course: Portions of this record may have been created with voice recognition software. Level of Care: Express Care Visit Vital Signs Vital signs: Vital Signs Temperature 36.8 C 11/30/24 08:27 Pulse Rate 110 H 11/30/24 08:27 Respiratory Rate 18 11/30/24 08:27 Blood Pressure 102/70 11/30/24 08:27 Pulse Oximetry 98 11/30/24 08:27 Oxygen Delivery Room Air 11/30/24 08:27 Temperature 36.8 C 11/30/24 08:27 Pulse Rate 110 H 11/30/24 08:27 Respiratory Rate 18 11/30/24 08:27 Blood Pressure 102/70 11/30/24 08:27 Pulse Oximetry 98 11/30/24 08:27 Oxygen Delivery Room Air 11/30/24 08:27 Vital signs reviewed MDM - URI/Sore Throat MDM Narrative Medical decision making narrative: At the time of visit patient is resting comfortably on the exam table. Patient appears to be nontoxic. Labs: Influenza testing was performed and negative in the clinic today. Plan: I suspect patient has URI. Supportive measures were discussed with the patient and they voiced understanding discharge instructions and agrees to treatment plan. Return precautions reviewed Differential Diagnosis Differential diagnosis: Likely upper respiratory infection, otitis media, sinusitis, viral infection, bronchitis, influenza, pharyngitis and other (COVID) Lab Data Labs: Lab Results 11/30/24 Range/Units 08:46 POC Influenza A Ag Negative (Negative) POC Influenza B Ag Negative (Negative) Discharge Plan Discharge Clinical Impression: Upper respiratory infection Qualifiers: URI type: unspecified URI Qualified Code(s): J06.9 - Acute upper respiratory infection, unspecified Patient Disposition: Home, Self-Care Condition: Stable Instructions: Antibiotic Form, Cold Symptoms (ED) Additional Instructions: Influenza testing was negative in the clinic today. Testing may be too early to detect influenza. May take DayQuil/NyQuil for cold/flu symptoms Increase fluids and stay well hydrated Tylenol/motrin for pain/fever Flonase and OTC antihistamines as directed Vicks vapor rub to open sinuses Sinus rinses for congestion Cepacol spray, cough drops, throat lozenges, warm tea with honey/lemon, gargle salt water to soothe throat BRAT diet for diarrhea Clear liquids x 24 hours then advance as tolerated for nausea/vomiting Go to the ED if you develop a worsening in your condition- high fever not controlled by Tylenol or Motrin, dehydration, weakness, lethargy, shortness of breath, or chest pain. Follow up with your PCP in 3-5 days if symptoms persist. Patient Language: Finnish Prescriptions: No Action nortriptyline 10 mg capsule 10 mg DIRECTED Follow-up/Referrals: Clem,Marivel Garcia MD [Primary Care Provider] - Stand Alone Forms: Work/School Release IP Time of Disposition: 08:47 Quality NIHSS Nursing Documentation ED NIHSS nursing documentation: reviewed/agree
[2024-11-30 08:27] VITALS: BP 102/70; PULSE 110; RESP 18; TEMP 36.8; O2SAT 98
--- OUTSIDE RECORDS SUMMARY | 2024-11-30 08:31 | XMS_ITS | Referral Summary ---
Author Organization [place] [id number] [facility] Address [address] [place] [address] Care Team Providers Care Shoer Name Role Phone Marivel Nj MD Primary Care Provider Encounters Date Type Department Care Team Description 11/17/2024 Orders Only [facility] Obstetrical Gynecology [address] [place] [phone] Luciana Stauffer MD 10/08/2024 2:00 PM FEDERAL JAVA DEVELOPER Lab [facility] Office Building [address] [place] [address] Patient desires 10/01/2024 3:30 PM FEDERAL JAVA DEVELOPER Telemedicine [facility] Obstetrical Gynecology [address] [place] [phone] Luciana Stauffer MD Patient desires (Primary Dx); Anovulation 09/30/2024 4:15 PM FEDERAL JAVA DEVELOPER Clinical Support [facility] Obstetrical Gynecology [address] [place] [phone] Patient desires (Primary Dx) 09/17/2024 Telephone [facility] Primary Care [address] [place] [address] [address] [place] [phone] Marivel Nj MD Med Refill (Nortriptyline 10MG caps) 09/10/2024 Orders Only [facility] Obstetrical Gynecology [address] [place] [phone] Luciana Stauffer MD Patient desires (Primary Dx) 09/01/2024 8:00 AM FEDERAL JAVA DEVELOPER Lab [facility] Office Building [address] [place] [phone] Well woman exam; Patient desires from Last 3 Months Allergies No known active allergies Medications cetirizine (ZyrTEC) 10 mg tablet Take 1 tablet (10 mg total) by mouth daily Active nortriptyline (PAMELOR) 10 mg capsule 2 pills by mouth at bedtime. 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 03/30/20 24 Immunizations Immunization Administration Dates Next Due DTaP 12/24/2006, 3,06/29/2002,04/28,02/27/2002 [...] on file Legal Sex Female 7:14 PM FEDERAL JAVA DEVELOPER Gender Identity Not on file Sexual Orientation Not on file Last Filed Vital Signs Vital Sign Reading Time Taken Comments Blood Pressure 122/80 08/18/2024 2:31 PM FEDERAL JAVA DEVELOPER Pulse 98 02/11/2024 2:50 PM CDT Temperature 37.1 C (98.7 F) 02/11/2024 2:50 PM CDT Respiratory Rate 15 02/11/2024 2:50 PM CDT Oxygen Saturation 99% 02/11/2024 2:50 PM CDT Inhaled Oxygen Concentration - - Weight 49 kg (108 lb) 08/18/2024 2:31 PM FEDERAL JAVA DEVELOPER Height 157.5 cm (5' 2.01 ) 08/18/2024 2:31 PM CS T Body Mass Index 19.75 08/18/2024 2:31 PM FEDERAL JAVA DEVELOPER Plan of Treatment Not on file Procedures Procedure Name Priority Date/Time Associated Diagnosis Comments PROGESTERONE Routine 10/08/2024 2:05 PM FEDERAL JAVA DEVELOPER Patient desires US TRANSVAGINAL Schedule Routine, Read Routine (OP Routine) 09/30/2024 5:11 PM FEDERAL JAVA DEVELOPER Patient desires ANTIBODY SCREEN Routine 09/01/2024 8:13 AM FEDERAL JAVA DEVELOPER Well woman exam ABO/RH Routine 09/01/2024 8:13 AM FEDERAL JAVA DEVELOPER Well woman exam TYPE AND SCREEN Routine 09/01/2024 8:13 AM FEDERAL JAVA DEVELOPER Well woman exam TOTAL TESTOSTERONE Routine 09/01/2024 8: 13 AM FEDERAL JAVA DEVELOPER Patient desires DHEA-SULFATE Routine 09/01/2024 8:13 AM FEDERAL JAVA DEVELOPER Patient desires ANTIMULLERIAN HORMONE (AMH) Routine 09/01/2024 8:13 AM FEDERAL JAVA DEVELOPER Patient desires PROLACTIN Routine 09/01/2024 8:13 AM FEDERAL JAVA DEVELOPER Patient desires FOLLICLE STIMULATING HORMONE Routine 09/01/2024 8:13 AM FEDERAL JAVA DEVELOPER Patient desires ESTRADIOL Routine 09/01/2024 8:13 AM FEDERAL JAVA DEVELOPER Patient desires HEMOGLOBIN A1C Routine 09/01/2024 8:13 AM FEDERAL JAVA DEVELOPER Well woman exam PROGESTERONE Routine 09/01/2024 8:13 AM FEDERAL JAVA DEVELOPER Patient desires THYROID FUNCTION CASCADE Routine 09/01/2024 8:13 AM FEDERAL JAVA DEVELOPER Well woman exam RUBELLA IGG Routine 09/01/2024 8:13 AM FEDERAL JAVA DEVELOPER Patient desires VARICELLA ZOSTER ANTIBODY, IGG Routine 09/01/2024 8:13 AM FEDERAL JAVA DEVELOPER Patient desires N. GONORRHOEAE/C. TRACHOMATIS AMPLIFICATION Routine 03/30/2024 3:00 PM CDT Well woman exam PAP WITH REFLEX TO HIGH RISK HPV Routine 03/30/2024 3:00 PM CDT Well woman exam from Last 3 Months or Most Recently Relevant to Health Maintenance Results * (ABNORMAL) Progesterone (10/08/2024 2:05 PM FEDERAL JAVA DEVELOPER) Progesterone 23.2(H) 0.0 - 0.2 ng/mL Comment: Interpretive Data Males: <0.15 ng/mL Females: Follicular <0.20 ng/mL Ovulation <4.1 ng/mL Luteal 4.1 - 14.5 ng/mL 1st Trimester 11.0 - 44.0 ng/mL 2nd Trimester 25.0 - 83.0 ng/mL 3rd Trimester 59.0 - 214.0 ng/mL Postmenopausal <0.13 ng/mL Current interpretive data was last revised 2021. Blood 10/08/2024 2:05 PM FEDERAL JAVA DEVELOPER 10/08/2024 6:57 PM FEDERAL JAVA DEVELOPER Luciana Stauffer MD LAB BLOOD ORDERABLES Final Result [facility] [address] [facility] Department [place] [address] * US Transvaginal (09/30/2024 5:11 PM FEDERAL JAVA DEVELOPER) Anatomical Region Laterality Modality Pelvis N/A Ultrasound Narrative 10/01/2024 2:41 PM FEDERAL JAVA DEVELOPER Last Menstrual Period: 08/2024 Indication: desires History of Pelvic Surgery: no Uterus size in cm: 7.47 x 4.15 x 3.30 Endometrium: 11.89 mm Right Ovary size in cm: 3.62 x 3.38 x 2.95 Cyst present: yes Size of cyst in cm: 2.72 x 2.46 x 1.84 Left Ovary size in cm: 2.87 x 2.27 x 2.10 Cyst present: no Heat Treat Supervisor impression: Endo = 11.89 mm. Right ovary [...] Luciana Stauffer MD IMG US PROCEDURES Edited R esult - Final * Thyroid Function [place] (09/01/2024 8:13 AM FEDERAL JAVA DEVELOPER) TSH 2.30 0.30 - 4.20 mcIUnit/mL Comment:Testing performed by : [facility], [address] [place] [address]., [address] Blood 09/01/2024 8:13 AM FEDERAL JAVA DEVELOPER 09/01/2024 10:01 AM FEDERAL JAVA DEVELOPER Luciana Stauffer MD LAB BLOOD ORDERABLES Edite d Result - Final Performing Organization Address [facility] Co de Phone Number [facility] [address] [address] * Antimullerian hormone (AMH) (09/01/2024 8:13 AM FEDERAL JAVA DEVELOPER) AMH, ab 6.0 1.2 - 12 ng/mL [facility] Comment: ADDITIONAL INFORMATION The testing method is an electrochemiluminescence assay manufactured by [employer] and performed on the Antonio system. Values obtained with different assay methods or kits may be different and cannot be used interchangeably. This test has been modified from the manufacturers instructions. Its performance characteristics were determined by [facility] in a manner consistent with CLIA requirements. This test has not been cleared or approved by the U.S. Food and Drug Administration. Test Performed by: [address] [address] Chief Risk Officer: Lakshmi Snell Ph.D.; CLIA# [id number] Testing performed by: [address] [address] Blood 09/01/2024 8:13 AM FEDERAL JAVA DEVELOPER 09/01/2024 9:57 AM FEDERAL JAVA DEVELOPER Luciana Stauffer MD LAB BLOOD ORDERABLES Final Result Performing Organization Address City/[facility]/ZIP Co de Phone Number [facility] [address] [place] [address] [facility] * ABO/Rh (09/01/2024 8:13 AM FEDERAL JAVA DEVELOPER) ABO/Rh O Positive Comment:Testing performed by : [address] [address] Blood 09/01/2024 8:13 AM FEDERAL JAVA DEVELOPER 09/01/2024 10:03 AM FEDERAL JAVA DEVELOPER Narrative [facility] - 09/01/2024 10:49 AM FEDERAL JAVA DEVELOPER Has the patient had Daratumumab or Isatuximab in the past 6 months?->Unknown Hx of or candidate for Bone Marrow/Stem Cell transplant?->No Luciana Stauffer MD LAB BLOOD BANK TEST ORDERA BLES Final Result Performing Organization Address [facility] Co de Phone Number [address] [place] [address] * Prolactin (09/01/2024 8:13 AM FEDERAL JAVA DEVELOPER) Prolactin 17.9 4.8 - 23.3 ng/mL Comment:Testing performed by : [facility], [address] [facility] [place] [address] Blood 09/01/2024 8:13 AM FEDERAL JAVA DEVELOPER 09/01/2024 2:23 PM FEDERAL JAVA DEVELOPER Luciana Stauffer MD LAB BLOOD ORDERABLES Final Result Performing Organization Address [facility] de Phone Number [address] [address] * (ABNORMAL) Progesterone (09/01/2024 8:13 AM FEDERAL JAVA DEVELOPER) Progesterone 1.2(H) 0.0 - 0.2 ng/mL Comment: Interpretive Data Males: <0.15 ng/mL Females: Follicular <0.20 ng/mL Ovulation <4.1 ng/mL Luteal 4.1 - 14.5 ng/mL 1st Trimester 11.0 - 44.0 ng/mL 2nd Trimester 25.0 - 83.0 ng/mL 3rd Trimester 59.0 - 214.0 ng/mL Postmenopausal <0.13 ng/mL Current interpretive data was last revised 2021. Blood 09/01/2024 8:13 AM FEDERAL JAVA DEVELOPER 09/01/2024 1:11 PM FEDERAL JAVA DEVELOPER Result [facility] Luciana Stauffer MD LAB BLOOD ORDERABLES Final Result [facility] [address] [place] [address] * (ABNORMAL) DHEA-sulfate (09/01/2024 8:13 AM FEDERAL JAVA DEVELOPER) DHEA-S 112.0(L) 148.0 - 407.0 mcg/dL Comment:Testing performed by : [facility], [address] [place]., [address] Blood 09/01/2024 8:13 AM FEDERAL JAVA DEVELOPER 09/01/2024 2:23 PM FEDERAL JAVA DEVELOPER Result [facility] Luciana Stauffer MD LAB BLOOD ORDERABLES Final Result Performing Organization Address [facility] Co de Phone Number [address] [place] [address] * Estradiol (09/01/2024 8:13 AM FEDERAL JAVA DEVELOPER) Estradiol 320.0 pg/mL Comment: Interpretive Data Males: 11 43 pg/mL Females: Premenopausal: 31 533 pg/mL Postmenopausal: < 50 pg/mL Patients treated with Fluvestrant (Faslodex) should be tested using an alternate assay such as LC-MS due to potential for cross-reactivity. Estradiol varies widely throughout the menstrual cycle. Current interpretive data was last revised 2024. Blood 09/01/2024 8:13 AM FEDERAL JAVA DEVELOPER 09/01/2024 1:11 PM FEDERAL JAVA DEVELOPER Narrative [facility] - 09/01/2024 1:48 PM FEDERAL JAVA DEVELOPER Is patient taking Fulvestrant?->No Luciana Stauffer MD LAB BLOOD ORDERABLES Final Result Performing Organization Address City/[facility]/ZIP Co de Phone Number ARNULFO[address] [place] [address] * Rubella IgG antibody Blood (09/01/2024 8:13 AM FEDERAL JAVA DEVELOPER) Rubella IgG Reactive Reactive Blood 09/01/2024 8:1 3 AM FEDERAL JAVA DEVELOPER 09/01/2024 1:12 PM FEDERAL JAVA DEVELOPER Luciana Stauffer MD LAB MICROBIOLOGY - GENERAL ORDERABLES Final Result [address] [place] [address] * Antibody screen (09/01/2024 8:13 AM FEDERAL JAVA DEVELOPER) Jesus, indirect, Gel Interpretation Negative ABSC Comment:Testing performed by : [facility], [address] [place] [address]., [address] Blood 09/01/2024 8:13 AM FEDERAL JAVA DEVELOPER 09/01/2024 10:03 AM FEDERAL JAVA DEVELOPER Narrative [facility] - 09/01/2024 10:49 AM FEDERAL JAVA DEVELOPER Has the patient had Daratumumab or Isatuximab in the past 6 months?->Unknown Hx of or candidate for Bone Marrow/Stem Cell transplant?->No Luciana Stauffer MD LAB BLOOD BANK TEST ORDERA BLES Final Result Performing Organization Address [facility] Co de Phone Number [address] [place] [address] * Varicella Zoster IgG antibody Blood (09/01/2024 8:13 AM FEDERAL JAVA DEVELOPER) Pathologist [facility] VZV IgG Reactive Reactive Comment: Reactive: Results suggest response to immunization or prior exposure to the virus. Testing performed by: [facility], [address] [facility], [place]., [address] Blood 09/01/2024 8:13 AM FEDERAL JAVA DEVELOPER 09/01/2024 2:23 PM FEDERAL JAVA DEVELOPER Luciana Stauffer MD LAB MICROBIOLOGY - GENERAL ORDERABLES Final Result [address] [place] [address] * Total testosterone (09/01/2024 8:13 AM FEDERAL JAVA DEVELOPER) [facility] Testosterone 31.10 8.40 - 48.10 ng/dL Blood 09/01/2024 8:13 AM FEDERAL JAVA DEVELOPER 09/01/2024 1:11 PM FEDERAL JAVA DEVELOPER Luciana Stauffer MD LAB BLOOD ORDERABLES Final Result Performing Organization Address City/[facility] de Phone Number [facility] [address] [place] [address] * Hemoglobin A1c (09/01/2024 8:13 AM FEDERAL JAVA DEVELOPER) [facility] Hgb A1C 5.3 4.0 - 5.6 % Comment:Testing performed by : [address] [address] Estimated Average Glucose 105 mg/dL [facility] Comment: The ADA recommends reporting an estimated Average Glucose (eAG) with all Hemoglobin A1c results using the equation derived from a study of 507 normal and diabetic adults. Minority populations were underrepresented and children were not included. (Diabetes Care 31:3106-6718, 2008). The eAG is not equivalent to a fasting glucose. Testing performed by: [facility], [address] [place] [address]., [address] Blood 09/01/2024 8:13 AM FEDERAL JAVA DEVELOPER 09/01/2024 10:03 AM FEDERAL JAVA DEVELOPER Luciana Stauffer MD LAB BLOOD ORDERABLES Final Result Performing Organization Address [facility] Co de Phone Number [place] [phone] [place] [address] * Follicle stimulating hormone (09/01/2024 8:13 AM FEDERAL JAVA DEVELOPER) [facility] FSH 8.4 1.5 - 12.4 IUnits/L Blood 09/01/2024 8:13 AM FEDERAL JAVA DEVELOPER 09/01/2024 1:11 PM FEDERAL JAVA DEVELOPER us Luciana Stauffer MD LAB BLOOD ORDERABLES Final Result [facility] [address] [facility] Department [place] [address] * Pap with reflex to High Risk HPV and Genotyping (Cytology Component) (03/30/2024 3:00 PM CDT) Endocervical (Pap test) 03/30/2024 3:00 PM CDT 03/31/2024 3:36 PM CDT Narrative PATHOLOGY [facility] - 04/07/2024 3:46 PM CDT EPIC results best viewed via link to PDF [facility] [place] [address] Note to Patients: This report may contain [...] the details. CYTOPATHOLOGY REPORT FINAL Patient Name: ELYSE CAMERON Gender: F : 2000 (Age: 23) Address: [address] [place], [place] [id number] Hospital #: [id number] Service: DEFAULT Location: Patient Type: [facility] SPECIMEN Taken: 03/30/2024 Received: 03/31/2024 Accessioned: 04/01/2024 Reported: 04/07/2024 Physician(s): Analisa Stauffer M.D. FINAL INTERPRETATION SOURCE OF SPECIMEN Liquid based Thin Prep pap with Reflex HPV: STATEMENT OF ADEQUACY - Satisfactory for evaluation - Endocervical cells/transformation zone sample present GENERAL CATEGORIZATION: - Negative for squamous intraepithelial lesion or malignancy lwl/04/07/2024 15:46 Stephen Rich MS, CT(ASCP)PA Report Electronically Reviewed and Signed Out By Stephen Rich MS, CT(ASCP)BRYAN 04/07/2024 15:46:37 Cervicovaginal Cytology (Pap Test) Disclaimer: The Pap test is a screening test used to detect cervical cancer and its precursors; it is not a diagnostic procedure. False negative and false positive results do occur. Pap test results should be interpreted in the context of pertinent clinical information and biopsy results as indicated. [facility] Clinical Laboratory Improvement Amendments (CLIA) mandate that cytologic and histologic results be correlated for laboratory vice president quality improvement & improvement standards. FOR ALL HIGH-GRADE CASES we request submission of follow-up histological material and/or reports that have not been previously provided so that we may fulfill said required standards. Gross Description A. Liquid based Thin Prep pap with Reflex HPV: Cervical/vaginal - Screening ThinPrep Clinical Diagnosis and History [...] determined by the Surgical Pathology Department at [facility] as part of an ongoing automotive quality engineer program and in compliance with federally mandated regulations drawn from the Clinical Laboratory Improvement Act of 1988 (CLIA '88). Some of these tests rely on the use of analyte specific reagents and are subject to specific labeling requirements by the US Food and Drug Administration. Such diagnostic tests may only be performed in a facility that is certified by the Department of Health and Human Services as a high complexity laboratory under CLIA '88. The FDA has determined that such clearance or approval is not necessary. This test is used for clinical purposes. It should not be regarded as investigational or for research. Nevertheless, federal rules concerning the medical use of analyte specific reagents require that the following disclaimer be attached to the report: This test was developed and its performance characteristics determined by the Surgical Pathology Department of [facility]. It has not been cleared or approved by the U. S. Food and Drug Administration. Luciana Stauffer MD LAB CYTOLOGY ORDERABLES Fi nal Result PATHOLOGY [facility] * N. gonorrhoeae/C. trachomatis Amplification Vaginal (03/30/2024 3:00 PM CDT) C. trachomatis Not Detected [facility] Comment:Testing performed by : [facility], [address] [place]., [address] N. gonorrhoeae Not Detected [facility] Comment: Interpretive Data This assay detects Chlamydia trachomatis and Neisseria gonorrhoeae by nucleic acid amplification testing (NAAT). This assay has been cleared by the [place] Food and Drug administration. The performance characteristics of this test have been verified by the [facility] Molecular Infectious Disease laboratory. The performance characteristics of this test have not been evaluated in individuals less than 14 years of age. Current Interpretive Data was last revised on 2023. Testing performed by: [facility], [address] [place]., [address] Vaginal 03/30/2024 3:00 PM CDT 03/31/2024 5:05 AM CDT Luciana Stauffer MD LAB MICROBIOLOGY - GENERAL ORDERABLES Final Result [facility] [address] [facility] Department [place] [address] [facility] from Last 3 Months or Most Recently Relevant to Health Maintenance Insurance [facility]/PPO Address: [facility] [address] [place] [address] [employer] Care Teams Shoer Relationship Specialty Start Date End Date Marivel Nj MD [address] [place] [id number] PCP - General Internal Medicine 12/17/23
--- OUTSIDE RECORDS SUMMARY | 2024-11-30 08:31 | XMS_ITS | Patient Health Summary ---
Author Organization [facility] Address [address] [place] [address] Care Team Providers Care Membership Counselor Name Role Phone Meche Veras DO Primary Care Provider [phone] Note from [facility],non-owned Affiliates and Associated Physician Practices is amultiple site organization consisting of ambulatory clinics and hospital sitesin [place], [place], [place] and [place]. This disclosure is being madepursuant to the Care Everywhere program and may not contain all information available regarding this patient. Last updated 18.[facility] Allergies No known active allergies Medications Be [...] AM CDT Pulse 96 08/02/2016 2:54 PM [facility] K[facility]GA [facility] Temperature 36.6 C (97.9 F) 07/15/2020 8:22 AM CDT Respiratory Rate 18 04/07/2015 10:23 AM CDT Oxygen Saturation 100% 08/02/2016 2:54 PM KAIAKO KOHANGA REO Inhaled Oxygen Concentration - - Weight 43.3 [...] BLOOD SPECIMEN / Unknown 06/05/2019 Ginette Leiva SEROLOGY TEACHER-[facility] - POINT OF CARE ORDERABLES * CULTURE STREP GROUP A (09/25/2018 2:06 PM [facility] KOH[facility]GA [facility]O) Only the most recent of4 resultswithin the time period is included. Beta-Strep Culture, Group A Only Negative [facility] ACCOUNT BILL Microbiology ENTIRE THROAT (SURFACE REGION OF NECK) / Unknown 09/25/2018 2:06 PM K[facility]IAKO KOHANGA REO 09/25/2018 Narrative Resulting Agency Comment [facility] [address] [facility] [phone] Magda Charlton APRN-[facility] - MICROBIOLOG Y ORDERABLES [facility] ACCOUNT BILL [address] [place] [address] * STREP A SCREEN - POINT OF CARE (AMB) STL (09/25/2018) Only the most recent of3 resultswithin the time period is included. Strep A Rapid POCT Negative Negative Strep A Internal Control Present Lot # [id number] Expiration Date [id number] Throat ENTIRE THROAT (SURFACE REGION OF NECK) / Unknown 09/25/2018 Magda Charlton APRN-[facility] - POINT OF CA RE ORDERABLES * STREP A SCREEN - POINT OF CARE (AMB) (12/16/2017) Only the most recent of3 resultswithin the time period is included. Strep A Rapid POCT Negative Negative Strep A Internal Control Present Other ENTIRE THROAT (SURFACE REGION OF NECK) / Unknown 12/16/2017 Magda Charlton SEROLOGY TEACHER[facility] - POINT OF CA RE ORDERABLES * CULTURE URINE (07/16/2016 6:51 PM CDT) Only the most recent of2 resultswithin the time period is included. Urine Culture Routine Final report [facility] ACCOUNT BILL Result 1 No growth [facility] ACCOUNT BILL Urine URINE SPECIMEN OBTAINED BY CLEAN CATCH PROCEDURE / Unknown 07/16/2016 6:51 PM CDT 07/17/2016 11:19 PM CDT Narrative Resulting Agency Comment [facility] [address] [facility] [phone] Saundra Hutchinson MD LAB - MICROBIOLOGY O RDERABLES Performing Organization Address City/State/[facility] Co de Phone Number [facility] ACCOUNT BILL [address] [place] [address] * URINALYSIS W MICROSCOPIC - POINT OF CARE (07/16/2016 6:23 PM CDT) Only the most recent of2 resultswithin the time period is included. Leukocyte UA negative Negative Nitrite UA POCT negative Negative Urobilinogen UA 0.2 0.1 - 1.0 Protein UA POCT negative Negative pH UA 8.0 5.0 - 8.0 pH units Blood UA negative Negative Specific [place] UA POCT 1.030 1.002 - 1.030 Ketone [...] Comment: Female Reference Ranges for LH (Luteinizing Hormone), Pediatric: Females: 3-7 years < or = 0.26 mIU/mL 8-9 years < or = 0.69 mIU/mL 10-11 years < or = 4.38 mIU/mL 12-14 years 0.04-10.80 mIU/mL 15-17 years 0.97-14.70 mIU/mL Oscar Stages I < or = 0.15 mIU/mL II < or = 2.91 mIU/mL III < or = 7.01 mIU/mL IV-V 0.10-14.70 mIU/mL This test was developed and its performance characteristics have been determined by [employer]. Performance characteristics refer to the analytical performance of the test. Test Performed at: [facility] [address] [place] [address] YOLA MARTIN MD PHD [facility] 0.90 0.87 - 9.16 mIU/mL [facility] Comment: Female Pediatric Reference Ranges for [facility]SH: 5-9 years: 0.72-5.33 mIU/mL 10-13 years: 0.87-9.16 mIU/mL 14-17 years: 0.64-10.98 mIU/mL This test was developed and its performance characteristics have been determined by [employer]. Performance characteristics refer to the analytical performance of the test. 01/04/2015 2:45 PM CDT 01/04/2015 2:47 PM CDT Saundra Hutchinson MD LAB - CHEMISTRY NIMISHA RICHEY Performing Organization Address [facility] Co de Phone Number [facility] [address] [place] [phone] * ESTRADIOL ULTRA SENSITIVE (01/04/2015 2:45 PM CDT) [facility] Estradiol Ultrasensitive LC/MS/MS 6 pg/mL [facility] Comment: Adult Female Reference Ranges for Estradiol, Ultrasensitive, LC/MS/MS: Follicular Phase: 39-375 pg/mL Luteal Phase: 48-440 pg/mL Postmenopausal Phase: < or = 10 pg/mL Pediatric Female Reference Ranges for Estradiol, Ultrasensitive, LC/MS/MS: Pre-pubertal (1-9 years): < or = 16 pg/mL 10-11 years: < or = 65 pg/mL 12-14 years: < or = 142 pg/mL 15-17 years: < or = 283 pg/mL Test Performed at: [facility] [address] [place] [address] YOLA MARTIN MD PHD 01/04/2015 2:45 PM CDT 01/04/2015 2:47 PM CDT Saundra Hutchinson MD LAB - CHEMISTRY NIMISHA RICHEY Performing Organization Address [facility] de Phone Number [facility] [address] [place] [address] * CBC W AUTO DIFFERENTIAL (01/04/2015 2:45 PM CDT) [facility] White Blood Cell Count 7.1 4.5 - [...] 0.4 % [facility] Comment: Test Performed at: [facility] [address] [place] [address] ROSS GEIGER DO,MPH Blood specimen (specimen) BLOOD SPECIMEN / Unknown 01/04/2015 2:45 PM CDT 01/04/2015 2:47 PM CDT Saundra Hutchinson MD LAB - HEMATOLOGY ORD ERABLES Performing Organization Address [facility] Co de Phone Number [facility] [address] [place] [address] * BASIC METABOLIC PANEL (CALCIUM TOTAL) (01/04/2015 2:45 PM CDT) Pathologist [facility] Glucose 91 65 - 99 mg/dL [facility] Comment: Fasting reference interval BUN 11 7 - 20 mg/dL [facility] Creatinine 0.58 0.40 - 1.00 mg/dL [facility] Comment: Patient is <18 years old. Unable to calculate eGFR. BUN/Creatinine Ratio NOT APPLICABLE 6 - 22 (calc) [facility] Sodium 140 135 - 146 mmol/L [facility] Potassium 4.3 3.8 - 5.1 mmol/L [facility] Chloride 106 98 - 110 mmol/L [facility] CO2 23 19 - 30 mmol/L [facility] Calcium 9.8 8.9 - 10.4 mg/dL [facility] Comment: Test Performed at: [facility] [address] [facility] [address] ROSS GEIGER DO,MPH Blood specimen (specimen) BLOOD SPECIMEN / Unknown 01/04/2015 2:45 PM CDT 01/04/2015 2:47 PM CDT Saundra Hutchinson MD LAB - CHEMISTRY ORDE RABLES Performing Organization Address [facility] de Phone Number [place] [phone] [place] [address] * TSH (01/04/2015 2:45 PM CDT) [facility] TSH 1.78 mIU/L [facility] Comment: Reference Range 1-19 Years 0.50-4.30 Ranges First trimester 0.26-2.66 Second trimester 0.55-2.73 Third trimester 0.43-2.91 REPORT COMMENT: FASTING:NO Test Performed at: [facility] [address] [place] [address] ROSS GEIGER DO,MPH Blood specimen (specimen) BLOOD SPECIMEN / Unknown 01/04/2015 2:45 PM CDT 01/04/2015 2:47 PM CDT Saundra Hutchinson MD LAB - CHEMISTRY NIMISHA RICHEY Performing Organization Address [facility] Co de Phone Number [facility] [address] [place] [address] * T4 FREE (01/04/2015 2:45 PM CDT) [facility] T4 Free 1.0 0.9 - 1.4 ng/dL [facility] Comment: Test Performed at: [facility] [address] [place] [address] ROSS GEIGER DO,MPH 01/04/2015 2:45 PM CDT 01/04/2015 2:47 PM CDT Saundra Hutchinson MD LAB - CHEMISTRY NIMISHA RICHEY Performing Organization Address [facility] [place] [address] * XR BONE AGE STUDY (01/04/2015) Anatomical Region Laterality Modality Upper Extremity, Wrist / Hand Ot her Saundra Hutchinson MD DIAGNOSTIC IMAGING O RDERABLES * CULTURE ANAEROBE + AEROBE + GRAM STAIN (PO REF LAB) (05/01/2013 3:47 PM CDT) [facility] Anaerobic Culture Final report [facility] ACCOUNT BILL Result 1 [facility] ACCOUNT BILL Comment:No anaerobic growth in 72 hours. Aerobic Culture Final report [facility] ACCOUNT BILL Result 1 Staphylococcus aureus [facility] ACCOUNT BILL Comment: Recovered from broth only. Based on resistance to penicillin and susceptibility to oxacillin this isolate would be susceptible to: * Penicillinase-stable penicillins; such as: Cloxacillin Dicloxacillin Nafcillin * Beta-lactam/beta-lactamase inhibitor combinations; such as: Amoxicillin-clavulanic acid Ampicillin-sulbactam * Antistaphylococcal cephems; such as: Cefaclor Cefuroxime * Antistaphylococcal carbapenems; such as: Imipenem Meropenem Antimicrobial Susceptibility [facility] ACCOUNT BILL Comment: S = Susceptible; I = Intermediate; R = Resistant P = Positive; N = Negative MICS are expressed in micrograms per mL Antibiotic RSLT#1 RSLT#2 RSLT#3 RSLT#4 Ciprofloxacin R Clindamycin R Erythromycin R Gentamicin S Levofloxacin R Linezolid S Moxifloxacin R Oxacillin S Penicillin R Quinupristin/Dalfopristin S Rifampin S Tetracycline S Trimethoprim/Sulfa S Vancomycin S Gram Stain Result Final report [facility] ACCOUNT BILL Result 1 [facility] ACCOUNT BILL Comment:No white blood cells seen. Result 2 No organisms seen [facility] ACCOUNT BILL TISSUE SPECIMEN FROM SKIN / Unknown 05/01/2013 3:47 PM CDT 05/01/2013 8:05 PM CDT Narrative Resulting Agency Comment [facility] [place] [id number] [facility] [phone] Saundra Hutchinson MD LAB - MICROBIOLOGY O GABRIELA [facility] ACCOUNT BILL * XR FOOT 3+ VW RIGHT (01/23/2012) Only the most recent of2 resultswithin the time period is included. Anatomical Region Laterality Modality Ankle / Foot Other Saundra Hutchinson MD DIAGNOSTIC IMAGING O GABRIELA * XR FOOT 3+ VW LEFT (01/23/2012) Only the most recent of2 resultswithin the time period is included. Anatomical Region Laterality Modality Ankle / Foot Other Saundra Hutchinson MD DIAGNOSTIC IMAGING O GABRIELA * XR SPINE SCOLIOSIS 2 VW MP (01/23/2012) Anatomical Region Laterality Modality Spine Other Saundra Hutchinson MD DIAGNOSTIC IMAGING O RDERABLES * XR FOOT 2 VW LEFT (08/07/2010 11:30 AM [facility] KOHANGA REO) Anatomical Region Laterality Modality Ankle / Foot Radiographic Tyesha ging 08/07/2010 1:26 PM [facility] K[facility] REO Impressions 08/08/2010 10:20 AM [facility] KOH[facility] REO Hallux varus deformity, corrected and internally stabilized. D: Yunior Benjamin M.D. Narrative 08/08/2010 10:20 AM [facility] Exam: Portable left foot 4 views Date: [...] varus deformity, corrected and internally stabilized. D: Ynuior Benjamin M.D. Iwona Sarmiento MD DIAGNOSTIC IMAGING O RDERASANFORD * XR FOOT RIGHT 1 VW (08/07/2010 11:28 AM [facility]KO KOHANGA REO) Anatomical Region Laterality Modality Radiographic Tyesha ging 08/07/2010 1:23 PM KAIAKO KOHANGA REO Impressions 08/08/2010 10:20 AM [facility]KO KOHANGA REO Internally stabilized and corrected hallux varus deformity. D: Yunior Benjamin M.D. Narrative 08/08/2010 10:20 AM [facility]KO KOHANGA REO Exam: Portable Right foot one view Date: August 07 2010 at approximately 1016 hours Comparison: August 01 2010 Findings: A wire traverses phalanges and distal metatarsal of the right first digit. The varus deformity appears to have been corrected and the bones are in anatomic alignment. Procedure Note Mason Vázquez MD - 11/16/2010 Exam: Portable Right foot one view Date: [...] M.D. Iwona Sarmiento MD DIAGNOSTIC IMAGING O RDERASANFORD * STREP A SCREEN I (11/02/2008 10:50 AM KAIAKO KOHANGA REO) Result NONE DETECTED [facility] Comment: Test Performed at: [place] [address] ROSS JORDAN MD 11/02/2008 10:5 0 AM [facility] KOHANGA REO 11/02/2008 7:28 PM [facility]KO KOHAN[facility] REO Saundra Hutchinson MD LAB - MICROBIOLOGY O RDAVIS Performing Organization Address City/State/[facility] Co de Phone Number [facility] [address] [place] [phone] * GROSS + MICRO EXAM (06/23/2002 9:00 AM CDT) Result CASE NUMBER [id number] [facility] PATH REPORT Comment: ORDERING PHYSICIAN Luis E WATTS SPECIMEN TYPE Tongue-Lesion CLINICAL HISTORY The patient is a 6-month-old girl with 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 GROSS DESCRIPTION The specimens are received fresh in four containers for gross and microscopic examination. In the first container, labeled A, tongue lesion , is a 1.3 x 0.6 x 0.6 cm fragment of pink-singh tongue mucosa and underlying pink-white soft tissue. A 4 mm in diameter raised papule is identified at one margin of the specimen. The specimen is bisected and entirely submitted in cassette A . In the next container, labeled B, left hand digit polydactyly , is a 2.5 x 1.0 x 0.5 cm digit. The skin surface is pink-singh and grossly unremarkable. There is an unremarkable nail present. The underlying soft tissue, cartilaginous, and bony structures are grossly unremarkable. The specimen is submitted for decalcification prior to paraffin sectioning. After decalcification, a call center representative section is submitted in cassette B . In the next container, labeled C, right great toe polydactyly , is a 2.0 x 1.0 x 0.6 cm portion of a digit. The skin surface is wrinkled yellow-white and there is a portion of an unremarkable nail present. The underlying soft tissue, bony, and cartilaginous structures are grossly unremarkable. The specimen is submitted for decalcification prior to paraffin sectioning. After decalcification, a call center representative section is submitted in cassette C . In the next container, labeled D, left great toe polydactyly , is a 3.0 x 1.3 x 0.4 cm portion of a digit. The skin surface is yellow- white and wrinkled. There is a portion of an unremarkable nail present. The underlying soft tissue, bony, and cartilaginous structures are grossly unremarkable. Also submitted in the same container is a 0.5 x 0.4 x 0.1 cm fragment of white cartilage and bone. The specimens are submitted for decalcification prior to paraffin sectioning. After decalcification, a call center representative section is submitted in cassette D . (CT/amc/lw) MICROSCOPIC DESCRIPTION (5 H/E) Sections of the tongue show [...] similar to the ones already described above. (CSA/lw) DIAGNOSIS DIAGNOSIS A) TONGUE LESION - HAMARTOMA OF THE TONGUE (BENIGN). B) LEFT HAND DIGIT POLYDACTYLY. C) RIGHT GREAT TOE POLYDACTYLY. D) LEFT GREAT TOE POLYDACTYLY. This case has been personally reviewed and interpreted by the attending (teaching) pathologist. Sales Training Representative JR FENTON PATHOLOGIST Jonathan Rosa M.D. ELECTRONICALLY JAGRUTI Jonathan Rosa MISCELLANEOUS SAMPLES / Unknown 06/23/2002 9:00 AM CDT 06/23/2002 11:19 AM CDT Historical Provider LAB - PATHOLOGY/C YTOLOGY ORDERABLES [facility] PATH REPORT Care Teams Membership Counselor Relationship Specialty Start Date End Date Meche Veras DO [address] [place] [address] PCP - General Pediatrics 07/20/20
--- OUTSIDE RECORDS SUMMARY | 2024-11-30 08:31 | XMS_ITS | Clinical Summary ---
Author Organization [facility] Address [address] [place] [address] Care Team Providers Care Test Engineering Intern Name Role Phone Meche Veras DO Primary Care Provider [phone] Source Comments [facility],non-owned Affiliates and Associated Physician Practices is amultiple site organization consisting of ambulatory clinics and hospital sitesin [place], [place], [place] and [place]. This disclosure is being madepursuant to the Care Everywhere program and may not contain all information available regarding this patient. Last updated 18.[facility] Allergies No known active allergies Medications Be [...] AM CDT Pulse 96 08/02/2016 2:54 PM ADOPTION SPECIALIST Temperature 36.6 C (97.9 F) 07/15/2020 8:22 AM CDT Respiratory Rate 18 04/07/2015 10:23 AM CDT Oxygen Saturation 100% 08/02/2016 2:54 PM ADOPTION SPECIALIST Inhaled Oxygen Concentration - - Weight 43.3 [...] 12/24/2006, 04/05/2003, Additional history exists COVID-19 VACCINE (2 - 2023- season) 2024 10/10/2021 INFLUENZA VACCINE [...] 9:55 AM CDT) Reina Mallory Care Teams Test Engineering Intern Relationship Specialty Start Date End Date Meche Veras DO [address] [place] [address] PCP - General Pediatrics 07/20/20
--- OUTSIDE RECORDS SUMMARY | 2024-11-30 08:31 | XMS_ITS | Clinical Summary ---
Author Organization [place] [id number] [facility] Address [address] [place] [address] Care Team Providers Care Dock Hand Name Role Phone Marivel Nj MD Primary [...] Department Care Team Description 11/17/2024 Orders Only [facility] Obstetrical Gynecology [address] [place] [phone] Luciana Stauffer MD 10/08/2024 2:00 PM ANALYTICAL RESEARCH PROGRAM MANAGER Lab [facility] Building [address] [place] [address] Patient desires 10/01/2024 3:30 PM ANALYTICAL RESEARCH PROGRAM MANAGER Telemedicine [facility] Obstetrical Gynecology [address] [place] [phone] Luciana Stauffer MD Patient desires (Primary Dx); Anovulation 09/30/2024 4:15 PM ANALYTICAL RESEARCH PROGRAM MANAGER Clinical Support [facility] Obstetrical Gynecology [address] [place] [phone] Patient desires (Primary Dx) 09/17/2024 Telephone [facility] Primary Care [address] [place] [phone] Marivel Nj MD Med Refill (Nortriptyline 10MG caps) 09/10/2024 Orders Only [facility] Obstetrical Gynecology [address] [place] [phone] Luciana Stauffer MD Patient desires (Primary Dx) 09/01/2024 8:00 AM ANALYTICAL RESEARCH PROGRAM MANAGER Lab [facility] Building [address] [place] [address] Well woman exam; Patient desires from Last 3 Months Immunizations Immunization Administration Dates Next Due DTaP [...] on file Legal Sex Female 7:14 PM ANALYTICAL RESEARCH PROGRAM MANAGER Gender Identity Not on file Sexual Orientation Not on file Obstetrics History Para Term AB IAB SAB Ectopic Multiple Livin g Live Births 0 0 0 0 0 0 0 0 0 0 0 Comments Menarche: 16 Last Filed Vital Signs Vital Sign Reading Time Taken Comments Blood Pressure 122/80 08/18/2024 2:31 PM ANALYTICAL RESEARCH PROGRAM MANAGER Pulse 98 02/11/2024 2:50 PM CDT Temperature 37.1 C (98.7 F) 02/11/2024 2:50 PM CDT Respiratory Rate 15 02/11/2024 2:50 PM CDT Oxygen Saturation 99% 02/11/2024 2:50 PM CDT Inhaled Oxygen Concentration - - Weight 49 kg (108 lb) 08/18/2024 2:31 PM ANALYTICAL RESEARCH PROGRAM MANAGER Height 157.5 cm (5' 2.01 ) 08/18/2024 2:31 PM CS T Body Mass Index 19.75 08/18/2024 2:31 PM ANALYTICAL RESEARCH PROGRAM MANAGER Plan of Treatment Health Maintenance Due Date Last Done Comments Hepatitis C Screening 2001 Pneumococcal vaccine <65 (1 of 1 - PPSV23) 12/22/2007 07/20/2003, 07/20/2003, 04/05/2003, Additional history exists Meningococcal B Vaccine (1 o f 2 - Standard) 2017 Covid-19 Vaccine (3 - 2023-2 5 season) 2024 11/10/2021, 10/12/2021 Influenza Vaccine (#1) 2024 5, 07/13/2015, 08/03/2013, Additional history exists Depression Screening 02/10/2025 02/11/2024, 12/17/2023, 12/17/2023 Cervical Cancer Screening 03/30/2025 03/30/2024 Chlamydia and Gonorrhea (GC/ CT) Screening 03/30/2025 03/30/2024 Regular Well Visit/Exam 18-64 03/30/2025 03/30/2024, 12/17/2023 DTaP/Tdap/Td Vaccine (9 - Td or Tdap) 12/18/2033 12/19/2023, 10/18/2022, 03/18/2013, Additional history exists Varicella Vaccines Completed 01/23/2008, 02/03/2003 Hepatitis B Screening Completed 04/05/2008 , 04/05/2003, 04/28/2002, Additional history exists HPV Vaccines Completed 01/14/2018, 12/27/2015 Procedures Procedure Name Priority Date/Time Associated Diagnosis Comments PROGESTERONE Routine 10/08/2024 2:05 PM ANALYTICAL RESEARCH PROGRAM MANAGER Patient desires US TRANSVAGINAL Schedule Routine, Read Routine (OP Routine) 09/30/2024 5:11 PM ANALYTICAL RESEARCH PROGRAM MANAGER Patient desires ANTIBODY SCREEN Routine 09/01/2024 8:13 AM ANALYTICAL RESEARCH PROGRAM MANAGER Well woman exam ABO/RH Routine 09/01/2024 8:13 AM ANALYTICAL RESEARCH PROGRAM MANAGER Well woman exam TYPE AND SCREEN Routine 09/01/2024 8:13 AM ANALYTICAL RESEARCH PROGRAM MANAGER Well woman exam TOTAL TESTOSTERONE Routine 09/01/2024 8: 13 AM ANALYTICAL RESEARCH PROGRAM MANAGER Patient desires DHEA-SULFATE Routine 09/01/2024 8:13 AM ANALYTICAL RESEARCH PROGRAM MANAGER Patient desires ANTIMULLERIAN HORMONE (AMH) Routine 09/01/2024 8:13 AM ANALYTICAL RESEARCH PROGRAM MANAGER Patient desires PROLACTIN Routine 09/01/2024 8:13 AM ANALYTICAL RESEARCH PROGRAM MANAGER Patient desires FOLLICLE STIMULATING HORMONE Routine 09/01/2024 8:13 AM ANALYTICAL RESEARCH PROGRAM MANAGER Patient desires ESTRADIOL Routine 09/01/2024 8:13 AM ANALYTICAL RESEARCH PROGRAM MANAGER Patient desires HEMOGLOBIN A1C Routine 09/01/2024 8:13 AM ANALYTICAL RESEARCH PROGRAM MANAGER Well woman exam PROGESTERONE Routine 09/01/2024 8:13 AM ANALYTICAL RESEARCH PROGRAM MANAGER Patient desires THYROID FUNCTION CASCADE Routine 09/01/2024 8:13 AM ANALYTICAL RESEARCH PROGRAM MANAGER Well woman exam RUBELLA IGG Routine 09/01/2024 8:13 AM ANALYTICAL RESEARCH PROGRAM MANAGER Patient desires VARICELLA ZOSTER ANTIBODY, IGG Routine 09/01/2024 8:13 AM ANALYTICAL RESEARCH PROGRAM MANAGER Patient desires N. GONORRHOEAE/C. TRACHOMATIS AMPLIFICATION Routine 03/30/2024 3:00 PM CDT Well woman exam PAP WITH REFLEX TO HIGH RISK HPV Routine 03/30/2024 3:00 PM CDT Well woman exam from Last 3 Months or Most Recently Relevant to Health Maintenance Results * (ABNORMAL) Progesterone (10/08/2024 2:05 PM ANALYTICAL RESEARCH PROGRAM MANAGER) Progesterone 23.2(H) 0.0 - 0.2 ng/mL Comment: Interpretive Data Males: <0.15 ng/mL Females: Follicular <0.20 ng/mL Ovulation <4.1 ng/mL Luteal 4.1 - 14.5 ng/mL 1st Trimester 11.0 - 44.0 ng/mL 2nd Trimester 25.0 - 83.0 ng/mL 3rd Trimester 59.0 - 214.0 ng/mL Postmenopausal <0.13 ng/mL Current interpretive data was last revised 2021. Blood 10/08/2024 2:05 PM ANALYTICAL RESEARCH PROGRAM MANAGER 10/08/2024 6:57 PM ANALYTICAL RESEARCH PROGRAM MANAGER us Luciana Stauffer MD LAB BLOOD ORDERABLES Final Result [facility] [address] [facility] Department [place] [address] * US Transvaginal (09/30/2024 5:11 PM ANALYTICAL RESEARCH PROGRAM MANAGER) Anatomical Region Laterality Modality Pelvis N/A Ultrasound Narrative 10/01/2024 2:41 PM ANALYTICAL RESEARCH PROGRAM MANAGER Last Menstrual Period: 08/2024 Indication: desires History of Pelvic Surgery: no Uterus size in cm: 7.47 x 4.15 x 3.30 Endometrium: 11.89 mm Right Ovary size in cm: 3.62 x 3.38 x 2.95 Cyst present: yes Size of cyst in cm: 2.72 x 2.46 x 1.84 Left Ovary size in cm: 2.87 x 2.27 x 2.10 Cyst present: no Zoogler impression: Endo = 11.89 mm. Right ovary [...] R esult - Final * Thyroid Function [place] (09/01/2024 8:13 AM ANALYTICAL RESEARCH PROGRAM MANAGER) TSH 2.30 0.30 - 4.20 mcIUnit/mL Comment:Testing performed by : [facility], [address] [place] [address]., [address] Blood 09/01/2024 8:13 AM ANALYTICAL RESEARCH PROGRAM MANAGER 09/01/2024 10:01 AM ANALYTICAL RESEARCH PROGRAM MANAGER Luciana Stauffer MD LAB BLOOD ORDERABLES Edite d Result - Final Performing Organization Address [facility] Co de Phone Number [facility] [address] [employer] [place] [address] * Antimullerian hormone (AMH) (09/01/2024 8:13 AM ANALYTICAL RESEARCH PROGRAM MANAGER) AMH, ab 6.0 1.2 - 12 ng/mL [facility] Comment: ADDITIONAL INFORMATION The testing method is an electrochemiluminescence assay manufactured by [employer] and performed on the Antonio system. Values obtained with different assay methods or kits may be different and cannot be used interchangeably. This test has been modified from the manufacturers instructions. Its performance characteristics were determined by [facility] in a manner consistent with CLIA requirements. This test has not been cleared or approved by the U.S. Food and Drug Administration. Test Performed by: [place] [address] Press Operator Automatic: Lakshmi Snell Ph.D.; CLIA# [id number] Testing performed by: [address] [address] Blood 09/01/2024 8:13 AM ANALYTICAL RESEARCH PROGRAM MANAGER 09/01/2024 9:57 AM ANALYTICAL RESEARCH PROGRAM MANAGER Luciana Stauffer MD LAB BLOOD ORDERABLES Final Result Performing Organization Address [facility] Co de Phone Number [facility] [address] [employer] [place] [address] [place] [facility] * ABO/Rh (09/01/2024 8:13 AM ANALYTICAL RESEARCH PROGRAM MANAGER) ABO/Rh O Positive Comment:Testing performed by : [address] [address] Blood 09/01/2024 8:13 AM ANALYTICAL RESEARCH PROGRAM MANAGER 09/01/2024 10:03 AM ANALYTICAL RESEARCH PROGRAM MANAGER Narrative [facility] - 09/01/2024 10:49 AM ANALYTICAL RESEARCH PROGRAM MANAGER Has the patient had Daratumumab or Isatuximab in the past 6 months?->Unknown Hx of or candidate for Bone Marrow/Stem Cell transplant?->No Result [facility] Luciana tSauffer MD LAB BLOOD BANK TEST ORDERA BLES Final Result Performing Organization Address [facility] Co de Phone Number [address] [address] * Prolactin (09/01/2024 8:13 AM ANALYTICAL RESEARCH PROGRAM MANAGER) Prolactin 17.9 4.8 - 23.3 ng/mL Comment:Testing performed by : [facility], [address] [place]., [address] Blood 09/01/2024 8:13 AM ANALYTICAL RESEARCH PROGRAM MANAGER 09/01/2024 2:23 PM ANALYTICAL RESEARCH PROGRAM MANAGER Result [facility] Luciana Stauffer MD LAB BLOOD ORDERABLES Final Result Performing Organization Address [facility] Co de Phone Number [address] [address] * (ABNORMAL) Progesterone (09/01/2024 8:13 AM ANALYTICAL RESEARCH PROGRAM MANAGER) Progesterone 1.2(H) 0.0 - 0.2 ng/mL Comment: Interpretive Data Males: <0.15 ng/mL Females: Follicular <0.20 ng/mL Ovulation <4.1 ng/mL Luteal 4.1 - 14.5 ng/mL 1st Trimester 11.0 - 44.0 ng/mL 2nd Trimester 25.0 - 83.0 ng/mL 3rd Trimester 59.0 - 214.0 ng/mL Postmenopausal <0.13 ng/mL Current interpretive data was last revised 2021. Blood 09/01/2024 8:13 AM ANALYTICAL RESEARCH PROGRAM MANAGER 09/01/2024 1:11 PM ANALYTICAL RESEARCH PROGRAM MANAGER Result [facility] Luciana Stauffer MD LAB BLOOD ORDERABLES Final Result Performing Organization Address City/State/[facility] Co de Phone Number [id number] [employer] [place] [address] * (ABNORMAL) DHEA-sulfate (09/01/2024 8:13 AM ANALYTICAL RESEARCH PROGRAM MANAGER) [facility] DHEA-S 112.0(L) 148.0 - 407.0 mcg/dL Comment:Testing performed by : [facility], [address] [place]., [address] Blood 09/01/2024 8:13 AM ANALYTICAL RESEARCH PROGRAM MANAGER 09/01/2024 2:23 PM ANALYTICAL RESEARCH PROGRAM MANAGER Luciana Stauffer MD LAB BLOOD ORDERABLES Final Result Performing Organization Address [facility] de Phone Number [address] [address] * Estradiol (09/01/2024 8:13 AM ANALYTICAL RESEARCH PROGRAM MANAGER) [facility] Estradiol 320.0 pg/mL Comment: Interpretive Data Males: 11 43 pg/mL Females: Premenopausal: 31 533 pg/mL Postmenopausal: < 50 pg/mL Patients treated with Fluvestrant (Faslodex) should be tested using an alternate assay such as LC-MS due to potential for cross-reactivity. Estradiol varies widely throughout the menstrual cycle. Current interpretive data was last revised 2024. Blood 09/01/2024 8:13 AM ANALYTICAL RESEARCH PROGRAM MANAGER 09/01/2024 1:11 PM ANALYTICAL RESEARCH PROGRAM MANAGER Narrative [facility] - 09/01/2024 1:48 PM ANALYTICAL RESEARCH PROGRAM MANAGER Is patient taking Fulvestrant?->No Luciana Stauffer MD LAB BLOOD ORDERABLES Final Result Performing Organization Address [facility] Co de Phone Number [address] [address] * Rubella IgG antibody Blood (09/01/2024 8:13 AM ANALYTICAL RESEARCH PROGRAM MANAGER) [facility] Rubella IgG Reactive Reactive Blood 09/01/2024 8:13 AM ANALYTICAL RESEARCH PROGRAM MANAGER 09/01/2024 1:12 PM ANALYTICAL RESEARCH PROGRAM MANAGER Luciana Stauffer MD LAB MICROBIOLOGY - GENERAL ORDERABLES Final Result [facility] [address] [employer] [place] [address] * Antibody screen (09/01/2024 8:13 AM ANALYTICAL RESEARCH PROGRAM MANAGER) Pathologist [facility] Jesus, indirect, Gel Interpretation Negative ABSC Comment:Testing performed by : [facility], [address] [place] [address]., [address] Blood 09/01/2024 8:13 AM ANALYTICAL RESEARCH PROGRAM MANAGER 09/01/2024 10:03 AM ANALYTICAL RESEARCH PROGRAM MANAGER Narrative [facility] - 09/01/2024 10:49 AM ANALYTICAL RESEARCH PROGRAM MANAGER Has the patient had Daratumumab or Isatuximab in the past 6 months?->Unknown Hx of or candidate for Bone Marrow/Stem Cell transplant?->No Luciana Stauffer MD LAB BLOOD BANK TEST ORDERA BLES Final Result Performing Organization Address [facility] Co de Phone Number [address] [employer] [place] [address] * Varicella Zoster IgG antibody Blood (09/01/2024 8:13 AM ANALYTICAL RESEARCH PROGRAM MANAGER) [facility] VZV IgG Reactive Reactive Comment: Reactive: Results suggest response to immunization or prior exposure to the virus. Testing performed by: [facility], [address] [place] [address] Blood 09/01/2024 8:13 AM ANALYTICAL RESEARCH PROGRAM MANAGER 09/01/2024 2:23 PM ANALYTICAL RESEARCH PROGRAM MANAGER Result [facility] Luciana Stauffer MD LAB MICROBIOLOGY - GENERAL ORDERABLES Final Result [address] [employer] [place] [address] * Total testosterone (09/01/2024 8:13 AM ANALYTICAL RESEARCH PROGRAM MANAGER) Pathologist [facility] Testosterone 31.10 8.40 - 48.10 ng/dL Blood 09/01/2024 8:13 AM ANALYTICAL RESEARCH PROGRAM MANAGER 09/01/2024 1:11 PM ANALYTICAL RESEARCH PROGRAM MANAGER Luciana Stauffer MD LAB BLOOD ORDERABLES Final Result Performing Organization Address City/[facility] Co de Phone Number [address] [address] * Hemoglobin A1c (09/01/2024 8:13 AM ANALYTICAL RESEARCH PROGRAM MANAGER) [facility] Hgb A1C 5.3 4.0 - 5.6 % Comment:Testing performed by : [address] [address] Estimated Average Glucose 105 mg/dL [facility] Comment: The ADA recommends reporting an estimated Average Glucose (eAG) with all Hemoglobin A1c results using the equation derived from a study of 507 normal and diabetic adults. Minority populations were underrepresented and children were not included. (Diabetes Care 31:0370-8332, 2008). The eAG is not equivalent to a fasting glucose. Testing performed by: [address] [address] Blood 09/01/2024 8:13 AM ANALYTICAL RESEARCH PROGRAM MANAGER 09/01/2024 10:03 AM ANALYTICAL RESEARCH PROGRAM MANAGER Luciana Stauffer MD LAB BLOOD ORDERABLES Final Result Performing Organization Address [facility] Co de Phone Number [facility] [address] [place] [address] * Follicle stimulating hormone (09/01/2024 8:13 AM ANALYTICAL RESEARCH PROGRAM MANAGER) [facility] FSH 8.4 1.5 - 12.4 IUnits/L Blood 09/01/2024 8:13 AM ANALYTICAL RESEARCH PROGRAM MANAGER 09/01/2024 1:11 PM ANALYTICAL RESEARCH PROGRAM MANAGER Luciana Stauffer MD LAB BLOOD ORDERABLES Final Result Performing Organization Address City/[facility] Co de Phone Number [facility] [address] [facility] Department [place] [address] * Pap with reflex to High Risk HPV and Genotyping (Cytology Component) (03/30/2024 3:00 PM CDT) Endocervical (Pap test) 03/30/2024 3:00 PM CDT 03/31/2024 3:36 PM CDT Narrative [facility] - 04/07/2024 3:46 PM CDT EPIC results best viewed via link to PDF [facility]ology [place], [place] [id number] Note to Patients: This report may contain [...] F : 2000 (Age: 23) Address: [address] [place], [place] [id number] Hospital #: [id number] Service: DEFAULT Location: Patient Type: [facility] SPECIMEN Taken: 03/30/2024 Received: 03/31/2024 Accessioned: 04/01/2024 Reported: 04/07/2024 Physician(s): Analisa Stauffer M.D. FINAL INTERPRETATION SOURCE OF SPECIMEN Liquid based Thin Prep pap with Reflex HPV: STATEMENT OF ADEQUACY - Satisfactory for evaluation - Endocervical cells/transformation zone sample present GENERAL CATEGORIZATION: - Negative for squamous intraepithelial lesion or malignancy lwl/04/07/2024 15:46 ALEIDA Woods MS(ASCP)BRYAN Report Electronically [...] clinical information and biopsy results as indicated. [facility] Clinical Laboratory Improvement Amendments (CLIA) mandate that cytologic and histologic results be correlated for laboratory cloth tester quality & improvement standards. FOR ALL HIGH-GRADE CASES [...] Medical Center as part of an ongoing quality reviewer program and in compliance with federally mandated [...] LAB CYTOLOGY ORDERABLES Fi nal Result [facility] * N. gonorrhoeae/C. trachomatis Amplification Vaginal (03/30/2024 3:00 PM CDT) C. trachomatis Not Detected [facility] Comment:Testing performed by : [facility], [address] [place]., [address] N. gonorrhoeae Not Detected [facility] Comment: Interpretive Data This assay detects Chlamydia [...] performed by: [facility], [address] [place]., [address] Vaginal 03/30/2024 3:00 PM CDT 03/31/2024 5:05 AM CDT Luciana Stauffer MD LAB MICROBIOLOGY - GENERAL ORDERABLES Final Result Performing Organization Address City/State/[facility] Co de Phone Number [facility] [address] [facility] Department [place] [address] [facility] from Last 3 Months or Most Recently Relevant to Health Maintenance Insurance [facility] [employer] OOS Care Teams Dock Hand Relationship Specialty Start Date End Date Marivel Nj MD [address] [place] [phone] PCP - General Internal Medicine 12/17/23
--- OUTSIDE RECORDS SUMMARY | 2024-11-30 08:31 | XMS_ITS | Referral Summary ---
Author Organization [facility] Address [address] [facility] [place] [address] Care Team Providers Care Epic Cad[facility] Specialists Name Role Phone Meche Veras DO Primary Care Provider [phone] Source Comments [facility] [employer],non-owned Affiliates and Associated Physician Practices is amultiple site organization consisting of ambulatory clinics and hospital sitesin [place], [place], [place] and [place]. This disclosure is being madepursuant to the Care Everywhere program and may not contain all information available regarding this patient. Last updated 18.[facility] [employer] Allergies No known active allergies Medications Be [...] AM CDT Pulse 96 08/02/2016 2:54 PM BUTTON BREAKER Temperature 36.6 C (97.9 F) 07/15/2020 8:22 AM CDT Respiratory Rate 18 04/07/2015 10:23 AM CDT Oxygen Saturation 100% 08/02/2016 2:54 PM BUTTON BREAKER Inhaled Oxygen Concentration - - Weight 43.3 [...] No Reina Love Administered Medications Care Teams Epic [facility] Specialists Relationship Specialty Start Date End Date Meche Veras DO [address] [place] [address] PCP - General Pediatrics 07/20/20
--- OUTSIDE RECORDS SUMMARY | 2024-11-30 08:32 | XMS_ITS | Data Portability ---
Author Organization [place] [facility], Main Office Address [address] [place] [address] Care Team Providers Care Unemployment Insurance Hearing Officer Name Role Phone TUCKER WONG Primary Care Provider [phone] Assessment Encounter Date Assessment Date Assessment LastModified [...] Ophtho as directed. F/u here as directed. [email or web address] Not available 02/21/2023 12:19:51 09/11/2023 09/11/2023 21 [...] Endo as per schedule. Cont f/u with Simulation Engineer at [facility] as per schedule. Cont f/u with Oral surgeon as per schedule. Cont f/u with Gyne as per schedule. Cont f/u with Derm at [facility] as per schedule. HM: WWE - 7/21/23, normal as per pt. Cont f/u with Gyne as per schedule. Flu - Pt declined. Tdap - 10/18/22. Gardasil - Pt had 2 doses done in the past, 10/18/22. F/u in 2-3 weeks. Annual visit in 09/15. [email or web address] Not available 09/11/2023 14:24:39 Plan of Treatment Reminders Order Date Submit Date Provider Last Modified By Organization Details Last Modified Time Details Appointments None recorded. Lab CBC w/ auto diff 2022 023 [facility], [address], [place], [address], 14:23:08 CMP, serum or plasma 2022 023 [facility], [address], [place], [address], 15:19:38 lipid panel, serum 2022 023 [facility], [address], [place], [address], 15:19:59 TSH, serum, reflex free T4 [email or web address], [address], [place], [address], 09:40:02 urinalysis complete, reflex culture 2022 023 [place] [address] [facility], [address], [place], [address], 09:40:19 vitamin B12 + folate, serum or blood [address], [address], [place], [address], 09:40:37 vitamin D, 25-hydroxy , total, serum 2022 023 [facility], [address], [place], [address], 3 09:40:48 pap, IG + CT/NG + reflex HPV 2022 023 [email or web address] [facility], [address] [place], [address], 3 07:55:28 Referral endocrinol ogy referral - Please call patient to schedule an appointmen t. 2022 023 [email or web address] [facility], [address], [address], [place], [address], 4 09:53:30 Procedures None recorded. Surgeries None recorded. Imaging None recorded. Medication Orders Ubrelvy 100 mg tablet 2022 023 [id number], [address], [place], [id number], 3 14:15:52 fluticason e propionate 50 mcg/actuat ion nasal spray,susp ension 2022 023 [facility] #[id number], [address], [place], [id number], 3 14:15:38 cetirizine 10 mg tablet 2022 023 [facility] #09024, [address], [place], [id number], 3 14:16:02 famotidine 20 mg tablet 2022 023 [email or web address], [address], [place], [id number], 3 12:08:27 Nurtec ODT 75 mg disintegra ting tablet 2022 023 [email or web address] [facility], [address] [facility], [place], [place], [id number], 11:59:26 Patient TargetsNo targets recorded. Patient Instructions Encounter Date Encounter Id Patient Instructions Last Modified By Organization Details Last Modified Time 04/12/2023 [id number] FU annually for WWE after 04/13/24 [email or web address] [...] COMPL ETE, IRIS color yellow Not Available [facility] (Lab) [address] [place], [address], 10/18/2022 20:54:13 10/18/19 23 10/18/2022 URINA LYSIS COMPL ETE, IRIS appear extra turbid abnormal Not Available [facility] (Lab) [address] [place], [address], 10/18/2022 20:54:13 10/18/19 23 10/18/2022 URINA LYSIS COMPL ETE, IRIS specific gravity 1.024 1.001- 1.030 Not Available [facility] (Lab) [address] [place], [address], 10/18/2022 20:54:13 10/18/19 23 10/18/2022 URINA LYSIS COMPL ETE, IRIS pH 6.0 pH_un its 5.0-9. 0 Not Available [facility] (Lab) [address] [place], [address], 10/18/2022 20:54:13 10/18/19 23 10/18/2022 URINA LYSIS COMPL ETE, IRIS leukocytes negati ve fabian/u L negati ve- Not Available [facility] (Lab) [address] [place], [address], 10/18/2022 20:54:13 10/18/19 23 10/18/2022 URINA LYSIS COMPL ETE, IRIS nitrite negati ve negati ve- Not Available [facility] (Lab) [address] [place], [address], 10/18/2022 20:54:13 10/18/19 23 10/18/2022 URINA LYSIS COMPL ETE, IRIS protein negati ve mg/dL negati ve- Not Available [facility] (Lab) [address] [place], [address], 10/18/2022 20:54:13 10/18/19 23 10/18/2022 URINA LYSIS COMPL ETE, IRIS glucose normal mg/dL normal - Not Available [facility] (Lab) [address] [place], [address], 10/18/2022 20:54:13 10/18/19 23 10/18/2022 URINA LYSIS COMPL ETE, IRIS ketones negati ve mg/dL negati ve- Not Available [facility] (Lab) [address] [place], [address], 10/18/2022 20:54:13 10/18/19 23 10/18/2022 URINA LYSIS COMPL ETE, IRIS urobilinogen normal mg/dL normal - Not Available [facility] (Lab) [address] [place], [address], 10/18/2022 20:54:13 10/18/19 23 10/18/2022 URINA LYSIS COMPL ETE, IRIS bilirubin negati ve mg/dL negati ve- Not Available [facility] (Lab) [address] [place], [address], 10/18/2022 20:54:13 10/18/19 23 10/18/2022 URINA LYSIS COMPL ETE, IRIS blood >/=1.0 mg/dL negati ve- abnormal Not Available [facility] (Lab) [address] [place], [address], 10/18/2022 20:54:13 10/18/19 23 10/18/2022 URINA LYSIS COMPL ETE, IRIS white blood cells 0-8 /i??h pfi?? 0-8 Not Available [facility] (Lab) [address] [place], [address], 10/18/2022 20:54:13 10/18/19 23 10/18/2022 URINA LYSIS COMPL ETE, IRIS red blood cells 11-20 /i??h pfi?? 0-4 abnormal Not Available [facility] (Lab) [address] [place], [address], 10/18/2022 20:54:13 10/18/19 23 10/18/2022 URINA LYSIS COMPL ETE, IRIS bacteria occasi onal abnormal Not Available [facility] (Lab) [address] [place], [address], 10/18/2022 20:54:13 10/18/19 23 10/18/2022 URINA LYSIS COMPL ETE, IRIS mucous occasi onal /i??l pfi?? abnormal Not Available [facility] (Lab) [address] [place], [address], 10/18/2022 20:54:13 10/18/1910/18/2022 URINA LYSIS COMPL ETE, IRIS squamous epithelial modera te /i??l pfi?? abnormal Not Available [facility] (Lab) [address] [place], [address], 10/18/2022 20:54:13 10/18/19 23 10/18/2022 URINA LYSIS COMPL ETE, IRIS calcium oxalate crystal occasi onal /i??h pfi?? none seen- abnormal Not Available [facility] (Lab) [address] [place], [address], 10/18/2022 20:54:13 10/18/19 23 10/18/2022 URINA LYSIS COMPL ETE, IRIS amorphous crystal occasi onal /i??h pfi?? abnormal Not Available [facility] (Lab) [address] [place], [address], 10/18/2022 20:54:13 04/12/20 23 04/17/2023 PAP THINP REP, REFLE X HPV diagnosis: ANTHONY KEBEDE FOR INTRA EPITH ELIAL ALEXYS N OR ANDRES RUGGIERO . Not Available [facility] (Lab) [address] [place], [address], 04/17/2023 14:17:38 04/12/20 23 04/17/2023 PAP THINP REP, REFLE X HPV specimen adequacy: ANTHONY Kilpatrick Satis facto akil for evalu ation . Endoc ervic al and/o r squam ous m etapl astic cells (endo cervi lynette compo nent) are prese nt. Areas of parti ally obscu ring infla mmato ry exuda te are prese n t. Not Available [facility] (Lab) [address] [place], [address], 04/17/2023 14:17:38 04/12/20 23 04/17/2023 PAP THINP REP, REFLE X HPV performed by: ANTHONY horn, Cytot echluz marina logis t (ASCP ) Not Available [facility] (Lab) [address] [place], [address], 04/17/2023 14:17:38 04/12/20 23 04/17/2023 PAP THINP REP, REFLE X HPV . . Not Available [facility] (Lab) [address] [place], [address], 04/17/2023 14:17:38 04/12/20 23 04/17/2023 PAP THINP [...] ts do occur . . Not Available [facility] (Lab) [address] [place], [address], 04/17/2023 14:17:38 04/12/20 23 04/17/2023 PAP THINP REP, REFLE X HPV test methodology: COMMEN T This liqui d based ThinP rep(R ) pap test was scree robe with the use of an image guide d syste m. Not Available [facility] (Lab) [address] [place], [address], 04/17/2023 14:17:38 04/12/20 23 04/17/2023 PAP THINP REP, REFLE X HPV . COMMEN T The HPV DNA refle x crite ligia were not met with this speci men resul t there fore, no HPV testi ng was perfo rmed. . Perfo rmed at: [facility] [place] [address] , [place] [address] Lab Direc tor: Monserrat cochran MD, Phone : [phone] Not Available [facility] (Lab) [address] [place], [address], 04/17/2023 14:17:38 09/13/20 23 09/13/2023 CBC/C OMPLE TE BLD COUNT W/DIF F white blood cells 6.9 x10'3 /uL 4.2-10 .8 Not Available [facility] (Lab) [address] [place], [address], 09/13/2023 14:23:08 09/13/20 23 09/13/2023 CBC/C OMPLE TE BLD COUNT W/DIF F red blood cells 4.86 x10'6 /uL 3.80-5 .20 Not Available [facility] (Lab) [address] [place], [address], 09/13/2023 14:23:08 09/13/20 23 09/13/2023 CBC/C OMPLE TE BLD COUNT W/DIF F hemoglobin 14.6 g/dL 12.0-1 5.6 Not Available [facility] (Lab) [address] [place], [address], 09/13/2023 14:23:08 09/13/20 23 09/13/2023 CBC/C OMPLE TE BLD COUNT W/DIF F hematocrit 44.9 % 35.7-4 5.7 Not Available [facility] (Lab) [address] [place], [address], 09/13/2023 14:23:08 09/13/20 23 09/13/2023 CBC/C OMPLE TE BLD COUNT W/DIF F mean red cell volume 92.4 fL 82.0-9 9.0 Not Available [facility] (Lab) [address] [place], [address], 09/13/2023 14:23:08 09/13/20 23 09/13/2023 CBC/C OMPLE TE BLD COUNT W/DIF F mean red cell hemoglobin 30.0 pg 27.0-3 3.0 Not Available [facility] (Lab) [address] [facility] [place], [address], 09/13/2023 14:23:08 12/2209/13/2023 CBC/C OMPLE TE BLD COUNT W/DIF F mean RBC HGB concentratio n 32.5 g/dL 31.0-3 6.0 Not Available [facility] (Lab) [address] [place], [address], 09/13/2023 14:23:08 09/13/20 23 09/13/2023 CBC/C OMPLE TE BLD COUNT W/DIF F red cell distribution width 12.8 % 11.8-1 5.5 Not Available [facility] (Lab) [address] [place], [address], 09/13/2023 14:23:08 09/13/20 23 09/13/2023 CBC/C OMPLE TE BLD COUNT W/DIF F platelets 268 x10'3 /uL 150-40 0 Not Available [facility] (Lab) [address] [place], [address], 09/13/2023 14:23:08 09/13/20 23 09/13/2023 CBC/C OMPLE TE BLD COUNT W/DIF F mean platelet volume 12.9 fL 9.0-12 .4 high Not Available [facility] (Lab) [address] [place], [address], 09/13/2023 14:23:08 09/13/20 23 09/13/2023 CBC/C OMPLE TE BLD COUNT W/DIF F neutrophils 41.3 % 39.0-7 2.0 Not Available [facility] (Lab) [address] [place], [address], 09/13/2023 14:23:08 09/13/20 23 09/13/2023 CBC/C OMPLE TE BLD COUNT W/DIF F lymphocytes 42.5 % 16.0-4 7.0 Not Available [facility] (Lab) [address] [place], [address], 09/13/2023 14:23:08 09/13/20 23 09/13/2023 CBC/C OMPLE TE BLD COUNT W/DIF F monocytes 7.9 % 5.0-12 .0 Not Available [facility] (Lab) [address] [place], [address], 09/13/2023 14:23:08 09/13/20 23 09/13/2023 CBC/C OMPLE TE BLD COUNT W/DIF F eosinophils 7.0 % 1.0-7. 0 Not Available [facility] (Lab) [address] [place], [address], 09/13/2023 14:23:08 09/13/20 23 09/13/2023 CBC/C OMPLE TE BLD COUNT W/DIF F basophils 1.2 % 0.0-2. 0 Not Available [facility] (Lab) [address] [place], [address], 09/13/2023 14:23:08 09/13/20 23 09/13/2023 CBC/C OMPLE TE BLD COUNT W/DIF F immature granulocytes 0.1 % 0.00-0 .50 Not Available [facility] (Lab) [address] [place], [address], 09/13/2023 14:23:08 09/13/20 23 09/13/2023 CBC/C OMPLE TE BLD COUNT W/DIF F neutrophils, absolute count 2.83 x10'3 /uL 1.5-8. 0 Not Available [facility] (Lab) [address] [place], [address], 09/13/2023 14:23:08 09/13/20 23 09/13/2023 CBC/C OMPLE TE BLD COUNT W/DIF F lymphocytes, absolute count 2.91 x10'3 /uL 1.07-3 .43 Not Available [facility] (Lab) [address] [place], [address], 09/13/2023 14:23:08 09/13/20 23 09/13/2023 CBC/C OMPLE TE BLD COUNT W/DIF F monocytes, absolute count 0.54 x10'3 /uL 0.29-0 .99 Not Available [facility] (Lab) [address] [place], [address], 09/13/2023 14:23:08 09/13/20 23 09/13/2023 CBC/C OMPLE TE BLD COUNT W/DIF F eosinophils, absolute count 0.48 x10'3 /uL 0.02-0 .53 Not Available [facility] (Lab) [address] [place], [address], 09/13/2023 14:23:08 09/13/20 23 09/13/2023 CBC/C OMPLE TE BLD COUNT W/DIF F basophils, absolute count 0.08 x10'3 /uL 0.01-0 .08 Not Available [facility] (Lab) [address] [place], [address], 09/13/2023 14:23:08 09/13/20 23 09/13/2023 CBC/C OMPLE TE BLD COUNT W/DIF F immature granulocytes ,absolute 0.01 x10'3 /uL 0.00-0 .05 Not Available [facility] (Lab) [address] [place], [address], 09/13/2023 14:23:08 09/13/20 23 09/13/2023 CBC/C OMPLE TE BLD COUNT W/DIF F nucleated red blood cells 0.0 % -0 Not Available [facility] (Lab) [address] [place], [address], 09/13/2023 14:23:08 09/13/20 23 09/13/2023 CBC/C OMPLE TE BLD COUNT W/DIF F NRBC# 0.00 x10'3 /uL Not Available [facility] (Lab) [address] [facility] [place], [address], 09/13/2023 14:23:08 09/13/20 23 09/13/2023 URINA LYSIS COMPL ETE/I RIS W/RFX color YELLOW Not Available [facility] (Lab) [address] [place], [address], 09/13/2023 14:40:50 09/13/20 23 09/13/2023 URINA LYSIS COMPL ETE/I RIS W/RFX appear EXTRA TURBID abnormal Not Available [facility] (Lab) [address] [place], [address], 09/13/2023 14:40:50 09/13/20 23 09/13/2023 URINA LYSIS COMPL ETE/I RIS W/RFX specific gravity 1.019 1.001- 1.030 Not Available [facility] (Lab) [address] [place], [address], 09/13/2023 14:40:50 09/13/20 23 09/13/2023 URINA LYSIS COMPL ETE/I RIS W/RFX pH 6.0 pH_un its 5.0-9. 0 Not Available [facility] (Lab) [address] [place], [address], 09/13/2023 14:40:50 09/13/20 23 09/13/2023 URINA LYSIS COMPL ETE/I RIS W/RFX leukocytes 75 fabian/u L negati ve- abnormal Not Available [facility] (Lab) [address] [place], [address], 09/13/2023 14:40:50 09/13/20 23 09/13/2023 URINA LYSIS COMPL ETE/I RIS W/RFX nitrite NEGATI VE negati ve- Not Available [facility] (Lab) [address] [place], [address], 09/13/2023 14:40:50 09/13/20 23 09/13/2023 URINA LYSIS COMPL ETE/I RIS W/RFX protein 70 mg/dL negati ve- abnormal Not Available [facility] (Lab) [address] [place], [address], 09/13/2023 14:40:50 09/13/20 23 09/13/2023 URINA LYSIS COMPL ETE/I RIS W/RFX glucose NORMAL mg/dL normal - Not Available [facility] (Lab) [address] [place], [address], 09/13/2023 14:40:50 09/13/20 23 09/13/2023 URINA LYSIS COMPL ETE/I RIS W/RFX ketones NEGATI VE mg/dL negati ve- Not Available [facility] (Lab) [address] [place], [address], 09/13/2023 14:40:50 09/13/20 23 09/13/2023 URINA LYSIS COMPL ETE/I RIS W/RFX urobilinogen NORMAL mg/dL normal - Not Available [facility] (Lab) [address] [place], [address], 09/13/2023 14:40:50 09/13/20 23 09/13/2023 URINA LYSIS COMPL ETE/I RIS W/RFX bilirubin NEGATI VE mg/dL negati ve- Not Available [facility] (Lab) [address] [place], [address], 09/13/2023 14:40:50 09/13/20 23 09/13/2023 URINA LYSIS COMPL ETE/I RIS W/RFX blood NEGATI VE mg/dL negati ve- Not Available [facility] (Lab) [address] [place], [address], 09/13/2023 14:40:50 09/13/20 23 09/13/2023 URINA LYSIS COMPL ETE/I RIS W/RFX white blood cells 0-8 /i??h pfi?? 0-8 Not Available [facility] (Lab) [address] [place], [address], 09/13/2023 14:40:50 09/13/20 23 09/13/2023 URINA LYSIS COMPL ETE/I RIS W/RFX red blood cells 0-4 /i??h pfi?? 0-4 Not Available [facility] (Lab) [address] [place], [address], 09/13/2023 14:40:50 09/13/20 23 09/13/2023 URINA LYSIS COMPL ETE/I RIS W/RFX bacteria FEW abnormal Not Available [facility] (Lab) [address] [facility] [place], [address], 09/13/2023 14:40:50 09/13/20 23 09/13/2023 URINA LYSIS COMPL ETE/I RIS W/RFX mucous MANY /i??l pfi?? abnormal Not Available [facility] (Lab) [address] [place], [address], 09/13/2023 14:40:50 09/13/20 23 09/13/2023 URINA LYSIS COMPL ETE/I RIS W/RFX squamous epithelial PACKED FIELD /i??l pfi?? abnormal Not Available [facility] (Lab) [address] [place], [address], 09/13/2023 14:40:50 09/13/20 23 09/13/2023 URINA LYSIS COMPL ETE/I RIS W/RFX hyaline cast MODERA TE /i??l pfi?? none seen- abnormal Not Available [facility] (Lab) [address] [place], [address], 09/13/2023 14:40:50 09/13/20 23 09/13/2023 TSH W/REF KAILEY FT4 TSH with reflex free T4 2.010 uIU/m L 0.465- 4.680 Not Available [facility] (Lab) [address] [place], [address], 09/13/2023 15:19:28 09/13/20 23 09/13/2023 COMPR EHENS DELIO METAB OLIC PANEL sodium 139 mmol/ L 137-14 5 Not Available [facility] (Lab) [address] [place], [address], 09/13/2023 15:19:54 09/13/20 23 09/13/2023 COMPR EHENS DELIO METAB OLIC PANEL potassium 4.1 mmol/ L 3.5-5. 1 Not Available [facility] (Lab) [address] [place], [address], 09/13/2023 15:19:54 09/13/20 23 09/13/2023 COMPR EHENS DELIO METAB OLIC PANEL chloride 105 mmol/ L 98-107 Not Available [facility] (Lab) [address] [place], [address], 09/13/2023 15:19:54 09/13/20 23 09/13/2023 COMPR EHENS DELIO METAB OLIC PANEL carbon dioxide 26 mmol/ L 22-30 Not Available [facility] (Lab) [address] [place], [address], 09/13/2023 15:19:54 09/13/20 23 09/13/2023 COMPR EHENS DELIO METAB OLIC PANEL anion gap 12.1 mmol/ L 14-22 low Not Available [facility] (Lab) [address] [place], [address], 09/13/2023 15:19:54 09/13/20 23 09/13/2023 COMPR EHENS DELIO METAB OLIC PANEL glucose 87 mg/dL 70-99 Not Available [facility] (Lab) [address] [facility] [place], [address], 09/13/2023 15:19:54 09/13/20 23 09/13/2023 COMPR EHENS DELIO METAB OLIC PANEL BUN 10 mg/dL 8-19 Not Available [facility] (Lab) [address] [facility] [place], [address], 09/13/2023 15:19:54 09/13/20 23 09/13/2023 COMPR EHENS DELIO METAB OLIC PANEL creatinine 0.66 mg/dL 0.66-1 .25 Not Available [facility] (Lab) [address] [facility] [place], [address], 09/13/2023 15:19:54 09/13/20 23 09/13/2023 COMPR EHENS DELIO METAB OLIC PANEL GFR >60 Refer ence Range : [place] ge GFR Healt hy Adult : >60 [...] or ethni c subgr oups, such as [facility] nics. Outsi de the valid ated robin [...] calcu lator is avail able on the [facility] websi te: https :[email or web address] sena.fiona urbina.o rg/pr ofess ional s/kdo qi/gf r_cal culat or Not Available [facility] (Lab) [address] [place], [address], 09/13/2023 15:19:54 09/13/20 23 09/13/2023 COMPR EHENS DELIO METAB OLIC PANEL alkaline phosphatase 62 U/L 38-126 Not Available [facility] (Lab) [address] [place], [address], 09/13/2023 15:19:54 09/13/20 23 09/13/2023 COMPR EHENS DELIO METAB OLIC PANEL alanine aminotransfe rase 12 U/L 0-35 Not Available [facility] (Lab) [address] [place], [address], 09/13/2023 15:19:54 09/13/20 23 09/13/2023 COMPR EHENS DELIO METAB OLIC PANEL aspartate aminotransfe rase 23 U/L 15-37 Not Available [facility] (Lab) [address] [place], [address], 09/13/2023 15:19:54 09/13/20 23 09/13/2023 COMPR EHENS DELIO METAB OLIC PANEL bilirubin, total 0.70 mg/dL 0.20-1 .30 Not Available [facility] (Lab) [address] [place], [address], 09/13/2023 15:19:54 09/13/20 23 09/13/2023 COMPR EHENS DELIO METAB OLIC PANEL calcium 10.1 mg/dL 8.4-10 .2 Not Available [facility] (Lab) [address] [place], [address], 09/13/2023 15:19:54 09/13/20 23 09/13/2023 COMPR EHENS DELIO METAB OLIC PANEL total protein 7.1 g/dL 6.3-8. 2 Not Available [facility] (Lab) [address] [place], [address], 09/13/2023 15:19:54 09/13/20 23 09/13/2023 COMPR EHENS DELIO METAB OLIC PANEL albumin 4.7 g/dL 3.4-5. 0 Not Available [facility] (Lab) [address] [place], [address], 09/13/2023 15:19:54 09/13/20 23 09/13/2023 COMPR EHENS DELIO METAB OLIC PANEL globulin 2.4 g/dL 2.6-4. 2 low Not Available [facility] (Lab) [address] [place], [address], 09/13/2023 15:19:54 09/13/20 23 09/13/2023 COMPR EHENS DELIO METAB OLIC PANEL A/G ratio 2.0 ratio 1.0-2. 0 Not Available [facility] (Lab) [address] [place], [address], 09/13/2023 15:19:54 09/13/20 23 09/13/2023 LIPID PANEL cholesterol 149 mg/dL 140-19 9 NIH CAMELIA NSUS RECOM MENDA TION FOR INNA STERO L: ADULT CHILD LOW RISK: <200 <170 BORDE RLINE : <200- 239 ----- HIGH RISK: >240 >200 Not Available [facility] (Lab) [address] [place], [address], 09/13/2023 15:19:59 09/13/20 23 09/13/2023 LIPID PANEL triglyceride s 52 mg/dL 0-150 NIH CAMELIA NSUS REPOR T RECOM MENDA TION FOR TRIGL YCERI ISACC: ADULT CHILD LOW RISK: <150 ----- BODER LINE: 150-1 99 ----- HIGH RISK: >200 ----- Not Available [facility] (Lab) [address] [place], [address], 09/13/2023 15:19:59 09/13/20 23 09/13/2023 LIPID PANEL HDL cholesterol 75 mg/dL 40- Not Available [facility] (Lab) [address] [place], [address], 09/13/2023 15:19:59 09/13/20 23 09/13/2023 LIPID PANEL [...] WILL NOT BE REPOR CHARLIE. Not Available [facility] (Lab) [address] [place], [address], 09/13/2023 15:19:59 09/13/20 23 09/13/2023 VITAM IN D 25-HY DROXY vd25oh 18.6 NG/mL 30-100 low Vitam in D Statu s: Defic ient: <20 ng/mL Insuf ficie nt: 20-29 ng/mL Suffi cient : 30-10 0 ng/mL Not Available [facility] (Lab) [address] [place], [address], 09/13/2023 17:11:21 09/13/20 23 09/13/2023 VITAM IN B12 (FLORINDA QUAN ) vb12 311 pg/mL 239-93 1 Not Available [facility] (Lab) [address] [place], [address], 09/13/2023 17:34:41 Result Notes None recorded. Problems Name Problem SNOMED Code Status Onset Date Resolution Date Notes Provider Name and Address Organization Details Recorded Time Folliculitis 89299690 Active 2021 Not Available [facility] 23:57:12 Microscopic hematuria 458170089 Active 2022 Not Available [facility] 3 23:57:13 Underweight 796773108 Active 2020 Not Available [facility] 3 23:57:13 Vitamin D deficiency 16555881 Active 2020 Not Available [facility] 3 23:57:13 Seasonal allergic rhinitis 432837226 Active 2020 Not Available [facility] 3 23:57:13 Disorder of jaw 93315573 Active 2021 Not Available [facility] 3 23:57:13 Multiple benign melanocytic nevi 722859145 Active 2021 Not Available [facility] 3 23:57:13 Education about sexually transmitted disease prevention Active 2021 Not Available [facility] 3 23:57:13 Vitamin B12 deficiency (non anemic) 34625964 Active 2020 Not Available [facility] 3 23:57:13 Viral gastroenterit is 168667683 Active 2022 Tucker Wong MD [address], [address], [place], [address] , [place] [employer] 3 12:07:26 Gastroesophag eal reflux disease without esophagitis 503161633 Active 2022 Tucker Wong MD [address], [address], [place], [address] , [place] [facility] [employer] [facility] 3 12:07:32 Migraine without aura 48497669 Active 2022 Tucker Wong MD [address], [place], [address] , [place] [facility] [employer] [facility] 3 12:09:04 Decrease in appetite 00881688 Active 2022 Tucker Wong MD [address], [place], [address] , [place] [facility] [employer] [facility] 3 12:19:35 Problem Notes None recorded. Procedures Surgical History Date Name Laterality Status Provider Name and Address Organization Details Recorded Time 3 Date of Last Pap Smear completed Teresita Goode, ROBE [address], [address], [place], [address], [facility] [employer] 04/17/2023 17:34:47 2 Jaw arthroscopy/edmonds rgery completed Not Available [facility] 11/21/2022 23:56:25 procedure on tongue completed Not Available [facility] 11/21/2022 23:56:25 Toe completed Not Available [facility] 09/2022 23:56:25 Imaging Results None recorded. Procedure [...] Available Not Available No t Available cyanocobal landrum (vit B-12) 1,000 mcg/mL injection solution 09/06 [...] % 99 % 75 /min 98.1 [degF] 71925.6 1 g 131 mm[Hg] 62 mm[Hg] Not Available [facility] 3 23:57:03 Date Recorded Body height Body mass index (BMI) Body weight Respiratory rate Heart rate Body temperature Oxygen saturation Oxygen saturation in Arterial blood by Pulse oximetry Systolic blood pressure Diastolic blood pressure Provider Name and Address Organization Details Last Updated DateTime 3 157.48 cm 18.3 kg/m2 69698.2 4 g 16 /min 82 /min 97.9 [degF] 99 % 99 % 114 mm[Hg] 70 mm[Hg] Reina Bull RN [place] [facility] [place] [employer] [facility] 3 12:02:42 Date Recorded Body height Body mass index (BMI) Body weight Body temperature Heart rate Oxygen saturation Oxygen saturation in Arterial blood by Pulse oximetry Pain severity - 0-10 verbal numeric rating [Score] - Reported Respiratory rate Systolic blood pressure Diastolic blood pressure Provider Name and Address Organization Details Last Updated DateTime 3 157.48 cm 18.5 kg/m2 39131.2 3 g 96.5 [degF] 84 /min 99 % 99 % 0 16 /min 112 mm[Hg] 78 mm[Hg] Teresita Nam RN [facility] [employer] [facility] 3 12:01:57 Date Recorded Body height Body mass index (BMI) Body weight Body temperature Heart rate Respiratory rate Oxygen saturation Oxygen saturation in Arterial blood by Pulse oximetry Systolic blood pressure Diastolic blood pressure Provider Name and Address Organization Details Last Updated DateTime 3 157.48 cm 17.4 kg/m2 35135.6 3 g 97.2 [degF] 82 /min 16 /min 99 % 99 % 108 mm[Hg] 70 mm[Hg] Nick Payne [facility] [employer] [facility] 3 14:05:47 Social History Question Answer Notes LastModified by Organizat ion Details LastModified Time Tobacco Smoking Status Never Smoker Not Available [facility] 11/21/2022 23:56:15 Do You Have An Advance Directive? No MIGRATION.[id number] Information not available 11/21/2022 What Is Your Level Of Alcohol Consumption? Occasional MIGRATION.504662 3334 Information not available 11/21/2022 Do You Wear A Helmet When Biking? No MIGRATION.032685 8423 Information not available 11/21/2022 What Is Your Level Of Caffeine Consumption? Heavy MIGRATION.965267 1151 Information not available 11/21/2022 In The 14 Days Before Symptom Onset, Have You Had Close Contact With A Laboratory-confir med COVID-19 While That Case Was Ill? No MIGRATION.109223 4734 Information not available 11/21/2022 In The 14 Days Before Symptom Onset, Have You Had Close Contact With A Person Who Is Under Investigation For COVID-19 While That Person Was Ill? No MIGRATION.383471 1474 Information not available 11/21/2022 What Type Of Diet Are You Following? REGULAR MIGRATION.259453 0752 Information not available 11/21/2022 What Is The Highest Grade Or Level Of School You Have Completed Or The Highest Degree You Have Received? [id number] MIGRATION.878071 6631 Information not available 11/21/2022 What Is Your Occupation? [employer] MIGRATION.265595 7115 Information not available 11/21/2022 Have There Been Any Changes To Your Family Or Social Situation? No MIGRATION.149863 4376 Information not available 11/21/2022 Are There Any Guns Present In Your Home? No MIGRATION.125485 5471 Information not available 11/21/2022 Do You Use Insect Repellent Routinely? No MIGRATION.625892 6818 Information not available 11/21/2022 Do You Have A Medical Power Of School Services Officer? No MIGRATION.290389 1205 Information not available 11/21/2022 Have You Ever Been Counseled For Unhealthy Alcohol Use? No MIGRATION.411469 9876 Information not available 11/21/2022 Do You Have Any Pets? Yes MIGRATION.665011 7724 Information not available 11/21/2022 What Is Your Relationship Status? Single MIGRATION.487493 8591 Information not available 11/21/2022 Do You Use Your Seat Belt Or Car Seat Routinely? Yes MIGRATION.772289 1520 Information not available 11/21/2022 Do You Have Smoke And Carbon Monoxide Detectors In Your Home? Yes MIGRATION.465032 6459 Information not available 11/21/2022 Are You Passively Exposed To Smoke? No MIGRATION.053580 1795 Information not available 11/21/2022 Are There Any Smokers In Your House? No MIGRATION.755499 7509 Information not available 11/21/2022 Do You Participate In Social Media? Yes MIGRATION.924582 5385 Information not available 11/21/2022 Do You Feel Stressed (tense, Restless, Nervous, Or Anxious, Or Unable To Sleep At Night)? [id number] [email or web address] Information not available 04/12/2023 Do You Use Any Illicit Or Recreational Drugs? No MIGRATION.272118 8488 Information not available 11/21/2022 Do You Use Sunscreen Routinely? Yes MIGRATION.687473 0435 Information not available 11/21/2022 Has Tobacco Cessation Counseling Been Provided? No MIGRATION.186955 9752 Information not available 11/21/2022 Have You Recently Traveled Abroad? No MIGRATION.926742 5958 Information not available 11/21/2022 Are You Currently In School? Yes MIGRATION.766225 6616 Information not available 11/21/2022 Do You Have Any Dietary Restrictions? No MIGRATION.904123 5311 Information not available 11/21/2022 Do You Or Have You Ever Used Any Other Forms Of Tobacco Or Nicotine? No MIGRATION.759845 8312 Information not available 11/21/2022 Sex: Female Functional Status Question Answer Note LastModified by Organizat ion Details LastModified Time What is your exercise level? None MIGRATION.[id number] Information not available 11/21/2022 Mental Status None recorded. Family History Relationship Description Onset Age of this Age Resolved Age Notes LastModified by Organization Details LastModified Time Mother Diabetes mellitus [id number] Not available 11/21/2022 23:56:27 Unspecified Relation Hypertensive disorder MIGRATION.[id number] Not available 11/21/2022 23:56:27 Notes:border line Medical History Condition Response CYSTITIS N BLINDNESS N RHEUMATIC FEVER N KIDNEY STONES N BLADDER PROBLEMS N Enlarged Prostate N SLEEP APNEA N MRSA N INFECTIOUS DISEASE N LUNG DISEASE/DISORDER N PROSTATE N HEART ARRHYTHMIA N HISTORY OF DRUG ABUSE N INSOMNIA N RADIATION / CHEMOTHERAPY N COPD N HIGH CHOLESTEROL / HYPERLIPIDEMIA N HYPERTHYROIDISM N UTI N BLOOD DISEASES N EDEMA N HYPOTHYROIDISM N SHINGLES N DEPRESSION (INCLUDING POST ) N BOWEL PROBLEMS N BACK / NECK PROBLEMS N HAVE YOU BEEN HOSPITALIZED OR SEEN IN [facility] IN THE PAST YEAR ? N STROKE/TIA N THYROID DISEASE N BENIGN PROSTATIC HYPERPLASIA N DIALYSIS N OBESITY N GERD/NAUSEA N ANEURYSM N OSTEOPOROSIS N URINARY/BLADDER/KIDNEY PROBLEMS N Increased Urination N CORONARY ARTERY DISEASE (CAD) N ARTHRITIS [...] 50 mcg/0.25mL dose 2 completed Not Available [facility] 11/21/2022 23:58:05 influenza, unspecified formulation 5 completed Not Available [facility] 11/21/2022 23:58:06 influenza, unspecified formulation 3 completed Not Available [facility] 11/21/2022 23:58:06 Hib, unspecified formulation 8 completed Not Available [facility] 11/21/2022 23:58:06 Hep B, adolescent or pediatric 8 completed Not Available [facility] 11/21/2022 23:58:06 DTaP, unspecified formulation 7 completed Not Available [facility] 11/21/2022 23:58:06 Hep A, pediatric, unspecified formulation 7 completed Not Available [facility] 11/21/2022 23:58:06 Hep A, pediatric, unspecified formulation 6 completed Not Available [facility] 11/21/2022 23:58:06 DTaP, unspecified formulation 3 completed Not Available [facility] 11/21/2022 23:58:06 DTaP, unspecified formulation 2 completed Not Available [facility] 11/21/2022 23:58:06 Hib, unspecified formulation 2 completed Not Available [facility] 11/21/2022 23:58:06 Hep B, adolescent or pediatric 2 completed Not Available [facility] 11/21/2022 23:58:06 DTaP, unspecified formulation 2 completed Not Available [facility] 11/21/2022 23:58:06 Hib, unspecified formulation 2 completed Not Available [facility] 11/21/2022 23:58:07 Hep B, adolescent or pediatric 2 completed Not Available [facility] 11/21/2022 23:58:07 DTaP, unspecified formulation 2 completed Not Available [facility] 11/21/2022 23:58:07 HPV9 3 completed Not Available [facility] 11/21/2022 23:58:07 Tdap 3 completed Not Available [facility] 11/21/2022 23:58:07 Past Encounters Encounter ID Performer Location Encounter Start Date Encounter Closed Date Diagnosis/Indication Diagnosis SNOMED-CT Code Diagnosis ICD10 Code Diagnosis Note [id number] [facility] [address] [place] [address] 07/18/2021 00:00:00 07/18/2021 18:13:23 [id number] [facility] [address] [place] [address] 07/21/2021 00:00:00 07/21/2021 13:21:57 [id number] [facility] [address] [place] [address] 08/07/2021 00:00:00 08/07/2021 16:36:01 [id number] [facility] [address] [place] [address] 11/07/2021 00:00:00 11/07/2021 17:42:02 [id number] [facility] [address] [place] [address] 12/19/2021 00:00:00 12/19/2021 21:47:43 [id number] [facility] [address] [place] [address] 03/06/2022 00:00:00 03/06/2022 17:47:51 [id number] [facility] [address] [place] [address] 09/06/2022 00:00:00 09/06/2022 14:27:37 [id number] [facility] [address] [place] [address] 10/02/2022 00:00:00 10/02/2022 10:55:[id number] [address] 10/18/2022 00:00:00 10/18/2022 14:50:40 [id number] [facility] [address], [address] [place] [address] 11/08/2022 00:00:00 11/08/2022 16:01:23 [id number] Tucker Wong MD [address] [address] 02/21/2023 11:56:48 02/21/2023 12:47:49 Viral gastroenteritis 935712186 A08.4 Gastroesop hageal reflux disease without esophagitis 421205102 K21.9 Migraine without aura 56 670153 G43.009 Decrease in appetite 643 87710 R63.0 [id number] Teresita Goode NP [address] [address] 04/12/2023 11:51:48 04/12/2023 12:36:41 Gynecologic examination 90454953 Z01.419 Encouraged well balanced meals, active lifestyle, and routine vision and dental appts.Disc ussed nuvaring if desired for controllin g periods prior to wedding.Romo d testing for clotting disorders and was negative per patient. [id number] Tucker Wong MD [address] [address] 09/11/2023 13:54:25 09/11/2023 14:28:22 Adult health examination 873007201 Z00.00 Vitamin B1 2 deficiency (non anemic) 30518977 E53.8 Vitamin D deficiency 347 99505 E55.9 Migraine without aura 56 918414 G43.009 Seasonal a llergic rhinitis 870342878 J30.2 Underweight 883927098 R6 3.6 [id number] Tucker Wong MD [facility] [address] [place] [address] 09/13/2023 10:49:33 09/13/2023 11:44:00 Health Concerns Section Related Observation LastModified by Organization Detai ls LastModified Time None Recorded Concern Status LastModified by Organization Details LastModified Time None Recorded Advance Directives Directive N: Payers Encounter Date Sequence Insurance Name Policy Number Policy Parsons Covered Member ID Parsons Member ID Guarantor Name 02/21/2023 1 R [id number] Alex Crain [place] [id number] Elyse Cameron 02/21/2023 2 [place] [employer] Elyse Wing [id number] Elyse Cameron 04/12/2023 1 UMR [id number] Alex Crain Pace [id number] Elyse Cameron 04/12/2023 2 [place] [facility] Elyse Wing [id number] Elyse Cameron 09/11/2023 1 UMR [id number] Alex Crain Pace [id number] Elyse Cameron 09/11/2023 2 [place] [employer] Elyse Wing [id number] Elyse Cameron 09/13/2023 1 UMR [id number] Alex Crain Pace [id number] Elyse Cameron 09/13/2023 2 [place] [employer] Elyse Wing [id number] Elyse Cameron Notes Date Note Type Note [...] changes/diplopia. No other concerns. Tucker Wong MD [address] [place] [address], [place], [address], [facility] [employer] 02/21/2023 12:20:29 04/12/2023 text/html Here for [employer]. Never had [employer] previously- just turned 22 yo 2022.States she had a pap done > 1 year ago due to mother having abnormal cells. LMP- 03/19/23Contracepti on- noneGetting in June.States mother and aunts had clotting issues on hormones. Teresita Goode NP [address], [address], [place], [address], [employer] 04/12/2023 12:33:47 09/11/2023 text/html Pt is here [...] b/l toes inversion and was f/u with [facility] at and now will be seeing them at [facility]. She will need to have surgery for this in future. Tucker Wong MD [address], [address], [place], [address], [employer] 09/11/2023 14:25:43 OBGyn Episode No OBEpisode recorded.
[2024-11-30 08:48] LABS: EDINFLUASCREEN Negative (Negative); EDINFLUBSCREEN Negative (Negative)
== END 2024-11-30 08:50 | disposition home or self-care (01) ==
PROVIDERS: Emergency Provider Nurse Practitioner Family; PCP Internal Medicine
DX: J06.9 Acute upper respiratory infection, unspecified (principal)
CPT/HCPCS: 87804; 99212; G0463